=== PATIENT | female | born 1975 | race African-American/Black ===

== ENCOUNTER 2017-05-29 09:14 | Inpatient (IN) | payer OTHER ==
[2017-05-29 11:20] VITALS: BMI 31.7
--- NOTE | 2017-05-29 14:12 | HP ---
CIWA Score - CIWA Score Nausea/Vomitin Muscle Tremors: 4-Moderate,w/Arms Extend Anxiety: 3 Agitation: 0-Normal Activity Paroxysmal Sweats: No Perspiration Orientation: 0-Oriented Tacttile Disturbances: 0-None Auditory Disturbances: 0-None Visual Disturbances: 2-Mild Sensitivity Headache: 4-Moderately Severe CIWA-Ar Total Score: 16 Admission ROS BHS - HPI Chief Complaint: "It is time to make changes. I am tired of getting high." Pt. is here to Detox from Alcohol. Allergies/Adverse Reactions: Allergies Allergy/AdvReac Type Severity Reaction Status Date / Time No Known Allergies Allergy Verified 05/29/17 11:24 History of Present Illness: Pt. is a 41 YO female here to Detox from Alcohol. This is pt.'s first Detox admission at [facility]. Longest period of sobriety: approx. 1 month (2016). Exam Limitations: No Limitations - Ebola screening Have you traveled outside of the country in the last 21 days: No Have you had contact with anyone from an Ebola affected area: No Have you been sick,other than usual withdrawal symptoms: No Do you have a fever: No - Review of Systems Constitutional: Chills, Diaphoresis, Fever, Loss of Appetite, Malaise, Night Sweats, Changes in sleep, Unintentional Wgt. Loss (Lost approx. 15 lbs. over last 3 months.) EENT: reports: Blurred Vision, Tearing, Other (Upper Denture.) Respiratory: reports: Productive cough Cardiac: reports: Palpitations GI: reports: Nausea, Poor Appetite, Vomiting, Indigestion : reports: No Symptoms Reported Musculoskeletal: reports: Joint Pain, Joint Stiffness Integumentary: reports: Pruritus (Eczema on Bilateral Hands.) Neuro: reports: Headache, Tremors Endocrine: reports: No Symptoms Reported Hematology: reports: No Symptoms Reported Psychiatric: reports: Judgement Intact, Mood/Affect Appropiate, Orientated x3, Anxious, Depressed (No Previous Treatment.) Other Systems: Reviewed and Negative Patient History - Patient Medical History Hx Anemia: No Hx Asthma: Yes (Pt is on MDI for asthma.) Hx Chronic Obstructive Pulmonary Disease (COPD): No Hx Cancer: No Hx Cardiac Disorders: No Hx Congestive Heart Failure: No Hx Hypertension: No Hx Hypercholesterolemia: No Hx Pacemaker: No HX Cerebrovascular Accident: No Hx Seizures: No Hx Dementia: No Hx Diabetes: No Hx Gastrointestinal Disorders: No Hx Liver Disease: No Hx Genitourinary Disorders: No Hx Sexually Transmitted Disorders: No Hx Renal Disease (ESRD): No Hx Thyroid Disease: No Hx Human Immunodeficiency Virus (HIV): No (Last Tested: approx. 6 months ago: NEGATIVE.) Hx Hepatitis C: No (Last Tested: approx. 6 months ago: NEGATIVE.) Hx Depression: Yes (No previous treatment.) Hx Suicide Attempt: No (PATIENT DENIES CURRENT SI / HI.) Hx Bipolar Disorder: No Hx Schizophrenia: No Other Medical History: DENIES. - Patient Surgical History Past Surgical History: No Hx Neurologic Surgery: No Hx Cataract Extraction: No Hx Cardiac Surgery: No Hx Lung Surgery: No Hx Breast Surgery: No Hx Breast Biopsy: No Hx Abdominal Surgery: No Hx Appendectomy: No Hx Cholecystectomy: No Hx Genitourinary Surgery: No Hx Section: No Hx Orthopedic Surgery: No Hx Hysterectomy: No Anesthesia Reaction: No - PPD History Previous Implant?: Yes Documented Results: Negative w/o proof Implanted On Prior R Admission?: No PPD to be Administered?: Yes - Reproductive History Patient is a Female of Child Bearing Age (11 -55 yrs old): Yes Last Menstrual Period: 04/30/17 Patient : No - Smoking Cessation Smoking history: Current every day smoker Have you smoked in the past 12 months: Yes Aproximately how many cigarettes per day: 10 Cigars Per Day: 0 Hx Chewing Tobacco Use: No Initiated information on smoking cessation: Yes 'Breaking Loose' booklet given: 05/29/17 (GIVEN TO PATIENT.) - Substance & Tx. History Hx Alcohol Use: Yes Hx Substance Use: Yes Substance Use Type: Alcohol, Cocaine Hx Substance Use Treatment: No - Substances Abused Alcohol Route: Oral Frequency: Daily Amount used: 1 PINT VODKA Age of first use: 11 Date of Last Use: 05/28/17 Crack Route: Smoking Frequency: Daily Amount used: 4-5 BAGS Age of first use: 15 Date of Last Use: 05/28/17 Family Disease History - Family Disease History Family Disease History: Heart Disease: Grandparent (Emphysema, HTN.), Respiratory: Grandparent Admission Physical Exam BHS - Vital Signs Vital Signs: Vital Signs - 24 hr 05/29/17 11:18 Temperature 96.1 F L Pulse Rate 57 L Respiratory 20 Rate Blood Pressure 128/81 - Physical General Appearance: Yes: No Apparent Distress, Nourished, Appropriately Dressed , Tremorous, Anxious HEENTM: Yes: Hearing grossly Normal, Normocephalic, Normal Voice, GRECIA, Pharynx Normal Respiratory: Yes: Chest Non-Tender, Lungs Clear, No Respiratory Distress, No Accessory Muscle Use Neck: Yes: No masses,lesions,Nodules, Supple, Trachea in good position Breast: Yes: Breast Exam Deferred Cardiology: Yes: Regular Rhythm, Regular Rate, S1, S2 Abdominal: Yes: Normal Bowel Sounds, Non Tender, Soft, Protuberent Genitourinary: Yes: Within Normal Limits Back: Yes: Decreased Range of Motion Musculoskeletal: Yes: Gait Steady, Joint Stiffness Extremities: Yes: Non-Tender, Tremors Neurological: Yes: Fully Oriented, Alert, Normal Mood/Affect, Normal Response Integumentary: Yes: Normal Color, Dry, Warm, Other (Dry skin noted on bilateral hands.) Lymphatic: Yes: Within Normal Limits - Diagnostic (1) Alcohol dependence with uncomplicated withdrawal Current Visit: Yes Status: Acute (2) Cocaine dependence, uncomplicated Current Visit: Yes Status: Acute (3) Nicotine dependence Current Visit: Yes Status: Chronic Qualifiers: Nicotine product type: cigarettes Substance use status: uncomplicated Qualified Code(s): F17.210 - Nicotine dependence, cigarettes, uncomplicated; F17.210 - Nicotine dependence, cigarettes, uncomplicated (4) Eczema of both hands Current Visit: Yes Status: Chronic (5) Asthma Current Visit: Yes Status: Chronic Qualifiers: Asthma severity: mild Asthma persistence: intermittent Asthma complication type: uncomplicated Qualified Code(s): J45.20 - Mild intermittent asthma, uncomplicated; J45.20 - Mild intermittent asthma, uncomplicated; J45.20 - Mild intermittent asthma, uncomplicated (6) Depression (emotion) Current Visit: Yes Status: Chronic Qualifiers: Depression Type: unspecified Qualified Code(s): F32.9 - Major depressive disorder, single episode, unspecified; F32.9 - Major depressive disorder, single episode, unspecified; F32.9 - Major depressive disorder, single episode, unspecified Cleared for Admission S - Detox or Rehab [facility] Level of Care: Medically Managed Detox Regimen/Protocol: Librium S Breath Alcohol Content Breath Alcohol Content: 0 Urine Pregancy Test - Result Urine Test Results: Negative- NO Line Present Urine Drug Screen - Results Drug Screen Negative: No Urine Drug Screen Results: FLOWER-Cocaine
[2017-05-29] MEDS ORDERED: guaiFENesin/D-METHORPHAN HB 10 ML UNIT-DOSE CUPS PO PRN (14:42)
[2017-05-29] MEDS ORDERED: hydrOXYzine PAMOATE 50 MG CAPSULE (FP) PO PRN (14:42)
[2017-05-29] MEDS ORDERED: IBUPROFEN 400 MG TABLET (FP) PO PRN (14:42)
[2017-05-29] MEDS ORDERED: P-EPHED 60MG/TRIPROLIDI 2.5MG TABLET PO PRN (14:42)
[2017-05-29] MEDS ORDERED: MAGNESIUM CITRATE 300 ML BOTTLE PO PRN (14:42)
[2017-05-29] MEDS ORDERED: MAG HYDROX/AL HYDROX/SIMETH 30 ML UNIT-DOSE CUP PO PRN (14:42)
[2017-05-29] MEDS ORDERED: ACETAMINOPHEN 325 MG TABLET (FP) PO PRN (14:42)
[2017-05-29] MEDS ORDERED: MAGNESIUM HYDROX 2400MG/30ML ORAL SUSPENSION 30 ML CUP PO PRN (14:42)
[2017-05-29] MEDS ORDERED: chlordiazePOXIDE HCL 25 MG CAPSULE PO PRN (14:42)
[2017-05-29] MEDS ORDERED: NICOTINE POLACRILEX 2 MG GUM BUC PRN (14:42)
[2017-05-29] MEDS ORDERED: LOPERAMIDE HCL 2 MG CAPSULE PO PRN (14:42)
[2017-05-29] MEDS ORDERED: MENTHOL/PHENOL 1 EACH UD MM PRN (14:42)
[2017-05-29] MEDS ORDERED: chlordiazePOXIDE HCL 25 MG CAPSULE PO ONE (15:09)
[2017-05-29] MEDS: NICOTINE 21 MG/24 HOURS TOPICAL PATCH TD SCH (15:46)
[2017-05-29] MEDS: chlordiazePOXIDE HCL 25 MG CAPSULE PO SCH ×2 (16:55→22:14)
[2017-05-29 18:03] LABS: MCH 32.2 pg (25.7-33.7); MCHC 33.1 g/dl (32.0-36.0); MEAN CELL VOLUME 97.5 fl (80-96); PLATELET COUNT 206 K/MM3 (134-434); RDW 15.6 % (11.6-15.6); WHITE BLOOD COUNT 4.3 K/mm3 (4.0-10.0)
[2017-05-29 18:15] LABS: ALBUMIN 3.5 g/dl (3.4-5.0); ANION GAP 7 (8-16); BILIRUBIN,TOTAL 0.2 mg/dL (0.2-1.0); CALCIUM 8.6 mg/dL (8.5-10.1); CO2 29 mmol/L (21-32); CREATININE 0.9 mg/dL (0.55-1.02); GLUCOSE,RANDOM 80 mg/dL (74-106); SGOT/AST 28 U/L (15-37); SGPT/ALT 26 U/L (12-78); TOT PROT 7.2 g/dl (6.4-8.2)
[2017-05-29 18:16] LABS: ALK PHOS 44 U/L (45-117)
[2017-05-29 19:05] LABS: PLATELET COMMENT2 FEW LARGE PLTS; PLATELET ESTIMATE ADEQUATE (NORMAL)
[2017-05-29 20:30] LABS: URINE APPEARANCE CLEAR; URINE BILIRUBIN NEGATIVE (NEGATIVE); URINE BLOOD NEGATIVE (NEGATIVE); URINE COLOR YELLOW; URINE GLUCOSE (UA) NEGATIVE (NEGATIVE); URINE KETONE NEGATIVE (NEGATIVE); URINE NITRITE NEGATIVE (NEGATIVE); URINE PROTEIN NEGATIVE (NEGATIVE); URINE UROBILINOGEN NEGATIVE mg/dL (0.2-1.0)
[2017-05-29 21:42] LABS: URINE LEUK ESTERASE Negative (NEGATIVE)
[2017-05-29] MEDS: AMMONIUM LACTATE 12% LOTION 225 GM BOTTLE TP SCH (22:14)
[2017-05-29] MEDS: THIAMINE HCL 100 MG TABLET (FP) PO SCH (22:14)
[2017-05-30] MEDS: chlordiazePOXIDE HCL 25 MG CAPSULE PO SCH ×4 (05:46→22:21)
[2017-05-30] MEDS: PRENATAL VITAMINS W/ FOLIC ACID TABLET (FP) PO SCH (10:20)
[2017-05-30] MEDS: NICOTINE 21 MG/24 HOURS TOPICAL PATCH TD SCH (10:21)
[2017-05-30] MEDS: AMMONIUM LACTATE 12% LOTION 225 GM BOTTLE TP SCH ×2 (10:21→22:22)
[2017-05-30] MEDS ORDERED: PNEUMOCOCCAL 23 VACCINE 0.5 ML VIAL IM ONE (12:00)
[2017-05-30] MEDS ORDERED: FLU VACCINE QUAD 60 MCG/0.5 ML (MDV 17-18) IM ONE (12:00)
[2017-05-30] MEDS ORDERED: PNEUMOC 13-VAL CONJ-DIP CRM/PF 0.5 ML DISP.SYRIN IM ONE (12:00)
--- NOTE | 2017-05-30 12:54 | EKG ---
Test Reason : Blood Pressure : / mmHG Vent. Rate : 057 BPM Atrial Rate : 057 BPM P-R Int : 142 ms QRS Dur : 084 ms QT Int : 422 ms P-R-T Axes : 058 053 048 degrees QTc Int : 410 ms SINUS BRADYCARDIA WITH SINUS ARRHYTHMIA NO PREVIOUS ECGS AVAILABLE Confirmed by GRICEL MISHRA MD ([id number]) on 05/30/2017 12:54:04 PM Referred By: Confirmed By:GRICEL MISHRA MD
--- NOTE | 2017-05-30 15:42 | PN ---
S CIWA - CIWA Score Nausea/Vomitin Muscle Tremors: 3 Anxiety: 3 Agitation: 2 Paroxysmal Sweats: 1-Minimal Palms Moist Orientation: 0-Oriented Tacttile Disturbances: 1-Very Mild Itch/Numbness Auditory Disturbances: 1-Very Mild Visual Disturbances: 0-None Headache: 2-Mild CIWA-Ar Total Score: 16 BHS Progress Note (SOAP) Subjective: alert,irritable,anxious,interrupted sleep,tremor Objective: 05/30/17 15:39 Vital Signs Temperature 98.1 F 05/30/17 13:50 Pulse Rate 88 05/30/17 13:50 Respiratory Rate 20 05/30/17 13:50 Blood Pressure 135/84 05/30/17 13:50 O2 Sat by Pulse Oximetry (%) ekg sinus bradycardia with sinus arrhythmia no ches pain,no sob,no dizziness Laboratory Last Values WBC 4.3 K/mm3 (4.0-10.0) 05/29/17 15:00 RBC 3.63 M/mm3 (3.60-5.2) 05/29/17 15:00 Hgb 11.7 GM/dL (10.7-15.3) 05/29/17 15:00 Hct 35.4 % (32.4-45.2) 05/29/17 15:00 MCV 97.5 fl (80-96) H 05/29/17 15:00 MCH 32.2 pg (25.7-33.7) 05/29/17 15:00 MCHC 33.1 g/dl (32.0-36.0) 05/29/17 15:00 RDW 15.6 % (11.6-15.6) 05/29/17 15:00 Plt Count 206 K/MM3 (134-434) 05/29/17 15:00 MPV 11.0 fl (7.5-11.1) 05/29/17 15:00 Differential Comment Slide scanned 05/29/17 15:00 Platelet Estimate Adequate (NORMAL) 05/29/17 15:00 Platelet Comment Few giant plts 05/29/17 15:00 Platelet Comment Few large plts 05/29/17 15:00 Sodium 142 mmol/L (136-145) 05/29/17 15:00 Potassium 4.2 mmol/L (3.5-5.1) 05/29/17 15:00 Chloride 106 mmol/L (98-107) 05/29/17 15:00 Carbon Dioxide 29 mmol/L (21-32) 05/29/17 15:00 Anion Gap 7 (8-16) L 05/29/17 15:00 BUN 13 mg/dL (7-18) 05/29/17 15:00 Creatinine 0.9 mg/dL (0.55-1.02) 05/29/17 15:00 Creat Clearance w eGFR > 60 (>60) 05/29/17 15:00 Random Glucose 80 mg/dL (74-106) 05/29/17 15:00 Calcium 8.6 mg/dL (8.5-10.1) 05/29/17 15:00 Total Bilirubin 0.2 mg/dL (0.2-1.0) 05/29/17 15:00 AST 28 U/L (15-37) 05/29/17 15:00 ALT 26 U/L (12-78) 05/29/17 15:00 Alkaline Phosphatase 44 U/L (45-117) L 05/29/17 15:00 Total Protein 7.2 g/dl (6.4-8.2) 05/29/17 15:00 Albumin 3.5 g/dl (3.4-5.0) 05/29/17 15:00 Urine Color Yellow 05/29/17 19:00 Urine Appearance Clear 05/29/17 19:00 Urine pH 5.0 (5.0-8.0) 05/29/17 19:00 Ur Specific [place] >= 1.030 (1.005-1.025) H 05/29/17 19:00 Urine Protein Negative (NEGATIVE) 05/29/17 19:00 Urine Glucose (UA) Negative (NEGATIVE) 05/29/17 19:00 Urine Ketones Negative (NEGATIVE) 05/29/17 19:00 Urine Blood Negative (NEGATIVE) 05/29/17 19:00 Urine Nitrite Negative (NEGATIVE) 05/29/17 19:00 Urine Bilirubin Negative (NEGATIVE) 05/29/17 19:00 Urine Urobilinogen Negative mg/dL (0.2-1.0) 05/29/17 19:00 Ur Leukocyte Esterase Negative (NEGATIVE) 05/29/17 19:00 RPR Titer Nonreactive (NONREACTIVE) 05/29/17 15:00 05/30/17 15:41 Assessment: 05/30/17 15:41 withdrawal symptom Plan: continue detox
--- NOTE | 2017-05-30 17:26 | CONSULT ---
[facility] Psychiatric Consult - Data Date of interview: 05/30/17 Admission source: [facility] Identifying data: First admission to [facility] for this 41 y/o AA female seeking detox treatment on for alcohol and cocaine dependence.Patient is single,mother of one,homeless,unemployed and supported on Public Assistance. Substance Abuse History: Discussed with patient in this session.Confirmed. Smoking Cessation. Smoking history: Current every day smoker. Have you smoked in the past 12 months: Yes. Aproximately how many cigarettes per day: 10. Cigars Per Day: 0. Hx Chewing Tobacco Use: No. Initiated information on smoking cessation: Yes. 'Breaking Loose' booklet given: 05/29/17 (GIVEN TO PATIENT.). - Substance & Tx. History. Hx Alcohol Use: Yes. Hx Substance Use: Yes. Substance Use Type: Alcohol, Cocaine. Hx Substance Use Treatment: No. - Substances Abused. Alcohol. Route: Oral. Frequency: Daily. Amount used: 1 PINT VODKA. Age of first use: 11. Date of Last Use: 05/28/17. Crack. Route: Smoking. Frequency: Daily. Amount used: 4-5 BAGS. Age of first use: 15. Date of Last Use: 05/28/17 Medical History: No reported medical problems. Psychiatric History: Patient denies. Physical/Sexual Abuse/Trauma History: No history. Additional Comment: Urine Drug Screen Results: FLOWER-Cocaine.Noted. Mental Status Exam - Mental Status Exam Alert and Oriented to: Time, Place, Person Cognitive Function: Good Patient Appearance: Well Groomed Mood: Withdrawn, Hopeful, Euthymic Affect: Appropriate, Normal Range Patient Behavior: Fatigued, Cooperative Speech Pattern: Clear Voice Loudness: Normal Thought Process: Intact, Goal Oriented Thought Disorder: Not Present Hallucinations: Denies Suicidal Ideation: Denies Homicidal Ideation: Denies Insight/Judgement: Poor Sleep: Well Appetite: Good Muscle strength/Tone: Normal Gait/Station: Normal Psychiatric Findings - Problem List ([place] 1, 2,3) (1) Alcohol dependence with uncomplicated withdrawal Current Visit: Yes Status: Acute (2) Cocaine dependence, uncomplicated Current Visit: Yes Status: Acute (3) Nicotine dependence Current Visit: Yes Status: Chronic Qualifiers: Nicotine product type: cigarettes Substance use status: uncomplicated Qualified Code(s): F17.210 - Nicotine dependence, cigarettes, uncomplicated; F17.210 - Nicotine dependence, cigarettes, uncomplicated (4) Eczema of both hands Current Visit: Yes Status: Chronic (5) Asthma Current Visit: Yes Status: Chronic Qualifiers: Asthma severity: mild Asthma persistence: intermittent Asthma complication type: uncomplicated Qualified Code(s): J45.20 - Mild intermittent asthma, uncomplicated; J45.20 - Mild intermittent asthma, uncomplicated; J45.20 - Mild intermittent asthma, uncomplicated - Initial Treatment Plan Initial Treatment Plan: Psychoeducation.Detoxification.Observation.
[2017-05-30] MEDS: THIAMINE HCL 100 MG TABLET (FP) PO SCH (22:21)
[2017-05-31] MEDS: chlordiazePOXIDE HCL 25 MG CAPSULE PO SCH ×2 (05:21→11:13)
[2017-05-31] MEDS: PRENATAL VITAMINS W/ FOLIC ACID TABLET (FP) PO SCH (11:00)
[2017-05-31] MEDS: AMMONIUM LACTATE 12% LOTION 225 GM BOTTLE TP SCH ×2 (11:00→22:34)
[2017-05-31] MEDS: NICOTINE 21 MG/24 HOURS TOPICAL PATCH TD SCH (11:00)
[2017-05-31] MEDS: ALBUTEROL SO4 18 GM HFA INHALER IH PRN ×2 (11:33→22:36)
--- NOTE | 2017-05-31 14:56 | PN ---
S CIWA - CIWA Score Nausea/Vomitin Muscle Tremors: 3 Anxiety: 2 Agitation: 2 Paroxysmal Sweats: 1-Minimal Palms Moist Orientation: 0-Oriented Tacttile Disturbances: 1-Very Mild Itch/Numbness Auditory Disturbances: 1-Very Mild Visual Disturbances: 0-None Headache: 2-Mild CIWA-Ar Total Score: 15 BHS Progress Note (SOAP) Subjective: ALERT,IRRITABLE,ANXIOUS,INTERRUPTED SLEEP,TREMOR Objective: 05/31/17 14:55 Vital Signs Temperature 99.0 F 05/31/17 11:10 Pulse Rate 98 H 05/31/17 11:10 Respiratory Rate 18 05/31/17 11:10 Blood Pressure 131/86 05/31/17 11:10 O2 Sat by Pulse Oximetry (%) Laboratory Last Values WBC 4.3 K/mm3 (4.0-10.0) 05/29/17 15:00 RBC 3.63 M/mm3 (3.60-5.2) 05/29/17 15:00 Hgb 11.7 GM/dL (10.7-15.3) 05/29/17 15:00 Hct 35.4 % (32.4-45.2) 05/29/17 15:00 MCV 97.5 fl (80-96) H 05/29/17 15:00 MCH 32.2 pg (25.7-33.7) 05/29/17 15:00 MCHC 33.1 g/dl (32.0-36.0) 05/29/17 15:00 RDW 15.6 % (11.6-15.6) 05/29/17 15:00 Plt Count 206 K/MM3 (134-434) 05/29/17 15:00 MPV 11.0 fl (7.5-11.1) 05/29/17 15:00 Differential Comment Slide scanned 05/29/17 15:00 Platelet Estimate Adequate (NORMAL) 05/29/17 15:00 Platelet Comment Few giant plts 05/29/17 15:00 Platelet Comment Few large plts 05/29/17 15:00 Sodium 142 mmol/L (136-145) 05/29/17 15:00 Potassium 4.2 mmol/L (3.5-5.1) 05/29/17 15:00 Chloride 106 mmol/L (98-107) 05/29/17 15:00 Carbon Dioxide 29 mmol/L (21-32) 05/29/17 15:00 Anion Gap 7 (8-16) L 05/29/17 15:00 BUN 13 mg/dL (7-18) 05/29/17 15:00 Creatinine 0.9 mg/dL (0.55-1.02) 05/29/17 15:00 Creat Clearance w eGFR > 60 (>60) 05/29/17 15:00 Random Glucose 80 mg/dL (74-106) 05/29/17 15:00 Calcium 8.6 mg/dL (8.5-10.1) 05/29/17 15:00 Total Bilirubin 0.2 mg/dL (0.2-1.0) 05/29/17 15:00 AST 28 U/L (15-37) 05/29/17 15:00 ALT 26 U/L (12-78) 05/29/17 15:00 Alkaline Phosphatase 44 U/L (45-117) L 05/29/17 15:00 Total Protein 7.2 g/dl (6.4-8.2) 05/29/17 15:00 Albumin 3.5 g/dl (3.4-5.0) 05/29/17 15:00 Urine Color Yellow 05/29/17 19:00 Urine Appearance Clear 05/29/17 19:00 Urine pH 5.0 (5.0-8.0) 05/29/17 19:00 Ur Specific [place] >= 1.030 (1.005-1.025) H 05/29/17 19:00 Urine Protein Negative (NEGATIVE) 05/29/17 19:00 Urine Glucose (UA) Negative (NEGATIVE) 05/29/17 19:00 Urine Ketones Negative (NEGATIVE) 05/29/17 19:00 Urine Blood Negative (NEGATIVE) 05/29/17 19:00 Urine Nitrite Negative (NEGATIVE) 05/29/17 19:00 Urine Bilirubin Negative (NEGATIVE) 05/29/17 19:00 Urine Urobilinogen Negative mg/dL (0.2-1.0) 05/29/17 19:00 Ur Leukocyte Esterase Negative (NEGATIVE) 05/29/17 19:00 RPR Titer Nonreactive (NONREACTIVE) 05/29/17 15:00 Assessment: 05/31/17 14:55 WITHDRAWAL SYMPTOM Plan: CONTINUE DETOX
[2017-05-31] MEDS: chlordiazePOXIDE 5 MG CAPSULE PO SCH ×2 (17:33→22:33)
[2017-05-31] MEDS: THIAMINE HCL 100 MG TABLET (FP) PO SCH (22:34)
[2017-05-31] MEDS: diphenhydrAMINE HCL 50 MG CAPSULE PO PRN (22:34)
[2017-06-01] MEDS: chlordiazePOXIDE 5 MG CAPSULE PO SCH ×2 (06:00→10:29)
[2017-06-01] MEDS: PRENATAL VITAMINS W/ FOLIC ACID TABLET (FP) PO SCH (10:29)
[2017-06-01] MEDS: NICOTINE 21 MG/24 HOURS TOPICAL PATCH TD SCH (10:29)
[2017-06-01] MEDS: ALBUTEROL SO4 18 GM HFA INHALER IH PRN (10:30)
[2017-06-01] MEDS: AMMONIUM LACTATE 12% LOTION 225 GM BOTTLE TP SCH ×2 (10:30→22:14)
--- NOTE | 2017-06-01 11:24 | PN ---
BHS Progress Note (SOAP) Subjective: sweats interrupted sleep Objective: 06/01/17 11:24 Vital Signs Temperature 98.2 F 06/01/17 11:20 Pulse Rate 88 06/01/17 11:20 Respiratory Rate 18 06/01/17 11:20 Blood Pressure 118/67 06/01/17 11:20 O2 Sat by Pulse Oximetry (%) aaox3 ambulating no acute distress Assessment: 06/01/17 11:24 withdrawal sx Plan: continue detox d/c in am
[2017-06-01] MEDS: chlordiazePOXIDE HCL 10 MG CAPSULE PO SCH ×2 (17:28→22:14)
[2017-06-01] MEDS: THIAMINE HCL 100 MG TABLET (FP) PO SCH (22:14)
[2017-06-01] MEDS: diphenhydrAMINE HCL 50 MG CAPSULE PO PRN (22:14)
[2017-06-02] MEDS: chlordiazePOXIDE HCL 10 MG CAPSULE PO SCH ×2 (06:11→10:49)
--- NOTE | 2017-06-02 09:02 | DS ---
[facility] Detox Discharge Summary Admission Date: 05/29/17 Discharge Date: 06/02/17 - History Present History: Alcohol Dependence, Cocaine Dependence - Physical Exam Results Vital Signs: Vital Signs Temperature 97.1 F L 06/02/17 06:52 Pulse Rate 80 06/02/17 06:52 Respiratory Rate 16 06/02/17 06:52 Blood Pressure 112/74 06/02/17 06:52 O2 Sat by Pulse Oximetry (%) - Treatment Hospital Course: Detox Protocol Followed, Detoxed Safely, Responded well, Discharged Condition Good, Rehab Referral Accepted - Medication Discharge Medications: Ambulatory Orders Albuterol Sulfate Inhaler - [Ventolin Hfa Inhaler -] 2 inh PO Q4H PRN 05/29/17 - AMA Did Patient Leave Against Medical Advice: No
[2017-06-02] MEDS: PRENATAL VITAMINS W/ FOLIC ACID TABLET (FP) PO SCH (09:16)
[2017-06-02] MEDS: AMMONIUM LACTATE 12% LOTION 225 GM BOTTLE TP SCH (09:17)
[2017-06-02] MEDS: NICOTINE 21 MG/24 HOURS TOPICAL PATCH TD SCH (09:17)
[2017-06-02 10:37] VITALS: BP 117/77; PULSE 88; TEMP 97.9
== END 2017-06-02 10:10 | disposition home or self-care (01) | DRG 774 ==
LOC: YASAS 09:14 → Y6N 13:05
PROVIDERS: ADMIT Internal Medicine; ATTEND Internal Medicine
PROC: HZ2ZZZZ Detoxification Services for Substance Abuse Treatment (ICD-10-PCS; principal; 2017-05-29)
DX: F10.230 Alcohol dependence with withdrawal, uncomplicated (principal); F14.20 Cocaine dependence, uncomplicated; F17.210 Nicotine dependence, cigarettes, uncomplicated; F32.9 Major depressive disorder, single episode, unspecified; J45.20 Mild intermittent asthma, uncomplicated; L30.9 Dermatitis, unspecified
CPT/HCPCS: 36415; 80053; 81003; 85027; 86593; 90688; 90732; 93005; 93010; G0008; G0009

== ENCOUNTER 2018-04-05 19:35 | Inpatient (IN) | payer OTHER ==
[2018-04-05 22:45] VITALS: BMI 29.2
--- NOTE | 2018-04-05 23:28 | HP ---
CIWA Score - CIWA Score Nausea/Vomitin-No Nausea/No Vomiting Muscle Tremors: 4-Moderate,w/Arms Extend Anxiety: 4-Mod. Anxious/Guarded Agitation: 4-Moderately Restless Paroxysmal Sweats: No Perspiration Orientation: 0-Oriented Tacttile Disturbances: 3-Moderate Itch/Numb/Burn Auditory Disturbances: 0-None Visual Disturbances: 0-None Headache: 2-Mild CIWA-Ar Total Score: 17 Admission ROS S - HPI Chief Complaint: C/O WITHDRAWAL SX'S. SEEKING DETOX FROM ALCOHOL Allergies/Adverse Reactions: Allergies Allergy/AdvReac Type Severity Reaction Status Date / Time No Known Allergies Allergy Verified 07/27/17 10:45 History of Present Illness: 42 Y.O. FEMALE WITH ALCOHOL AND COCAINE DEPENDENCE HERE FOR DETOX. CLIENT IS KNOWN TO THIS PROGRAM. LAST HERE 07/2017.SELF REFERRED. REPORTS LONGEST CLEAN TIME 6 MONTHS.DENIES HX/O SEIZURES, AVH, PAST/PRESENT SI/HI Exam Limitations: No Limitations - Ebola screening Have you traveled outside of the country in the last 21 days: No Have you had contact with anyone from an Ebola affected area: No Have you been sick,other than usual withdrawal symptoms: No Do you have a fever: No - Review of Systems Constitutional: Chills, Loss of Appetite, Malaise, Night Sweats, Unintentional Wgt. Loss EENT: reports: Dental Problems (MISSING TEETH), Other (GLASSES) Respiratory: reports: Shortness of Breath (HX/O ASTHMA) Cardiac: reports: No Symptoms Reported GI: reports: Poor Appetite : reports: No Symptoms Reported Musculoskeletal: reports: No Symptoms Reported Integumentary: reports: Rash (ECZEMA) Neuro: reports: No Symptoms reported Endocrine: reports: No Symptoms Reported Hematology: reports: No Symptoms Reported Psychiatric: reports: Anxious, Depressed Other Systems: Reviewed and Negative Patient History - Patient Medical History Hx Anemia: No Hx Asthma: Yes Hx Chronic Obstructive Pulmonary Disease (COPD): No Hx Cancer: No Hx Cardiac Disorders: No Hx Congestive Heart Failure: No Hx Hypertension: No Hx Hypercholesterolemia: No Hx Pacemaker: No HX Cerebrovascular Accident: No Hx Seizures: No Hx Dementia: No Hx Diabetes: No Hx Gastrointestinal Disorders: Yes (acid reflux) Hx Liver Disease: No Hx Genitourinary Disorders: No Hx Sexually Transmitted Disorders: No Hx Renal Disease (ESRD): No Hx Thyroid Disease: No Hx Human Immunodeficiency Virus (HIV): No Hx Hepatitis C: No Hx Depression: No Hx Suicide Attempt: No Hx Bipolar Disorder: No Hx Schizophrenia: No Other Medical History: FEELS DEPRESSED - Patient Surgical History Past Surgical History: No Hx Neurologic Surgery: No Hx Cataract Extraction: No Hx Cardiac Surgery: No Hx Lung Surgery: No Hx Breast Surgery: No Hx Breast Biopsy: No Hx Abdominal Surgery: No Hx Appendectomy: No Hx Cholecystectomy: No Hx Genitourinary Surgery: No Hx Section: No Hx Orthopedic Surgery: No Hx Hysterectomy: No Anesthesia Reaction: No - PPD History Previous Implant?: Yes Documented Results: Negative w/proof Implanted On Prior [facility] Admission?: Yes Date: 05/31/17 Results: 0 mm PPD to be Administered?: No - Reproductive History Patient is a Female of Child Bearing Age (11 -55 yrs old): Yes Last Menstrual Period: 04/01/16 LMP comment: REG Patient : No ([facility] [place]) - Smoking Cessation Smoking history: Current every day smoker Have you smoked in the past 12 months: Yes Aproximately how many cigarettes per day: 5 Cigars Per Day: 0 Hx Chewing Tobacco Use: No Initiated information on smoking cessation: Yes 'Breaking Loose' booklet given: 04/05/18 - Substance & Tx. History Hx Alcohol Use: Yes Hx Substance Use: Yes Substance Use Type: Alcohol, Cocaine Hx Substance Use Treatment: Yes ([facility]) - Substances Abused LIQUOR Route: Oral Frequency: Daily Amount used: 1 PINT Age of first use: 12 Date of Last Use: 04/05/18 Family Disease History - Family Disease History Family Disease History: Heart Disease: Grandparent (Emphysema, HTN.), Respiratory: Grandparent Admission Physical Exam [facility] - Vital Signs Vital Signs: Vital Signs - 24 hr 04/05/18 22:41 Temperature 97.3 F L Pulse Rate 65 Respiratory 18 Rate Blood Pressure 147/103 - Physical General Appearance: Yes: Appropriately Dressed, Mild Distress, Tremorous (FELT) , Irritable, Anxious, Other (MALODUROUS) HEENTM: Yes: EOMI, Normocephalic, Normal Voice, GRECIA, Pharynx Normal, Other ( POOR DENTITION) Respiratory: Yes: Chest Non-Tender, Lungs Clear, Normal Breath Sounds, No Respiratory Distress, No Accessory Muscle Use Neck: Yes: No masses,lesions,Nodules, Supple, Trachea in good position Breast: Yes: Breast Exam Deferred Cardiology: Yes: Regular Rhythm, Regular Rate, S1, S2 Abdominal: Yes: Normal Bowel Sounds, Non Tender, Soft Genitourinary: Yes: Other (NO C/O) Back: Yes: Normal Inspection Musculoskeletal: Yes: full range of Motion, Gait Steady Extremities: Yes: Normal Capillary Refill, Normal Range of Motion, Non-Tender, Tremors (FELT), Pedal Edema (BLE) Neurological: Yes: Fully Oriented, Alert, Motor Strength 5/5, Depressed Affect Integumentary: Yes: Dry, Warm, Rash (ECZEMA), Pitting Edema Lymphatic: Yes: Within Normal Limits - Diagnostic (1) GERD (gastroesophageal reflux disease) Current Visit: Yes Status: Chronic Qualifiers: Esophagitis presence: without esophagitis Qualified Code(s): K21.9 - Gastro -esophageal reflux disease without esophagitis (2) Alcohol dependence with uncomplicated withdrawal Current Visit: Yes Status: Acute (3) Asthma Current Visit: Yes Status: Chronic Qualifiers: Asthma severity: mild Asthma persistence: unspecified (4) Cocaine dependence, uncomplicated Current Visit: Yes Status: Chronic (5) Eczema of both hands Current Visit: Yes Status: Chronic (6) Nicotine dependence Current Visit: Yes Status: Chronic Qualifiers: Nicotine product type: cigarettes Substance use status: uncomplicated Qualified Code(s): F17.210 - Nicotine dependence, cigarettes, uncomplicated (7) Drug-induced mood disorder Current Visit: Yes Status: Suspected Cleared for Admission [facility] - Detox or Rehab [facility] Level of Care: Medically Managed Detox Regimen/Protocol: Librium Claeared for Rehab Admission: No S Breath Alcohol Content Breath Alcohol Content: 0 Urine Pregancy Test - Result Urine Test Results: Negative- NO Line Present Urine Drug Screen - Results Drug Screen Negative: No Urine Drug Screen Results: FLOWER-Cocaine
[2018-04-05] MEDS ORDERED: chlordiazePOXIDE HCL 25 MG CAPSULE PO PRN (23:34)
[2018-04-05] MEDS ORDERED: NICOTINE POLACRILEX 2 MG GUM BUC PRN (23:34)
[2018-04-05] MEDS ORDERED: P-EPHED 60MG/TRIPROLIDI 2.5MG TABLET PO PRN (23:34)
[2018-04-05] MEDS ORDERED: MENTHOL/PHENOL 1 EACH UD MM PRN (23:34)
[2018-04-05] MEDS ORDERED: MAGNESIUM CITRATE 300 ML BOTTLE PO PRN (23:34)
[2018-04-05] MEDS ORDERED: hydrOXYzine PAMOATE 50 MG CAPSULE (FP) PO PRN (23:34)
[2018-04-05] MEDS ORDERED: guaiFENesin/D-METHORPHAN HB 10 ML UNIT-DOSE CUPS PO PRN (23:34)
[2018-04-05] MEDS ORDERED: MAGNESIUM HYDROX 2400MG/30ML ORAL SUSPENSION 30 ML CUP PO PRN (23:34)
[2018-04-05] MEDS ORDERED: MAG HYDROX/AL HYDROX/SIMETH 30 ML UNIT-DOSE CUP PO PRN (23:34)
[2018-04-05] MEDS ORDERED: LOPERAMIDE HCL 2 MG CAPSULE PO PRN (23:34)
[2018-04-05] MEDS ORDERED: ALBUTEROL SO4 2.5/IPRATROPIUM 0.5 INH SOL 3 ML VIAL.NEB. NEB PRN (23:36)
[2018-04-05] MEDS ORDERED: ALBUTEROL SO4 8 GM HFA INHALER IH PRN (23:36)
[2018-04-06] MEDS: chlordiazePOXIDE HCL 25 MG CAPSULE PO SCH ×5 (06:02→22:16)
[2018-04-06 10:26] LABS: HEMATOCRIT 32.4 % (32.4-45.2); MCH 33.4 pg (25.7-33.7); MCHC 33.9 g/dl (32.0-36.0); MEAN CELL VOLUME 98.5 fl (80-96); MEAN PLT VOLUME 10.1 fl (7.5-11.1); PLATELET COUNT 216 K/MM3 (134-434); RBC 3.29 M/mm3 (3.60-5.2); RDW 15.7 % (11.6-15.6); WHITE BLOOD COUNT 5.2 K/mm3 (4.0-10.0)
[2018-04-06 10:31] LABS: URINE APPEARANCE CLEAR; URINE BILIRUBIN NEGATIVE (<2.0 mg/dL); URINE COLOR LTYELLOW; URINE GLUCOSE (UA) NEGATIVE (NEGATIVE); URINE KETONE NEGATIVE (NEGATIVE); URINE LEUK ESTERASE NEGATIVE (NEGATIVE); URINE NITRITE NEGATIVE (NEGATIVE); URINE PROTEIN NEGATIVE (NEGATIVE); URINE UROBILINOGEN NEGATIVE mg/dL (0.2-1.0)
[2018-04-06 10:47] LABS: CHLORIDE 109 mmol/L (98-107); POTASSIUM 4.2 mmol/L (3.5-5.1); SODIUM 145 mmol/L (136-145)
[2018-04-06 10:51] LABS: EPI CELLS RARE /HPF (FEW); URINE MUCUS RARE
[2018-04-06 11:00] LABS: ALBUMIN 3.1 g/dl (3.4-5.0); ALK PHOS 40 U/L (45-117); ANION GAP 8 (8-16); BILIRUBIN,TOTAL 0.2 mg/dL (0.2-1.0); BLOOD UREA NITROGEN 16 mg/dL (7-18); CO2 28 mmol/L (21-32); GLUCOSE,RANDOM 100 mg/dL (74-106); SGOT/AST 29 U/L (15-37); SGPT/ALT 31 U/L (12-78); TOT PROT 6.1 g/dl (6.4-8.2)
[2018-04-06] MEDS: PRENATAL VITAMINS W/ FOLIC ACID TABLET (FP) PO SCH (11:02)
[2018-04-06] MEDS: NICOTINE 14 MG/24 HOURS TOPICAL PATCH TD SCH (11:04)
--- NOTE | 2018-04-06 11:40 | CONSULT ---
[facility] Psychiatric Consult - Data Date of interview: 04/06/18 Admission source: [facility] Identifying data: Patient is a 42 year old single female, mother of one, unemployed (not receiving financial assistance) and currently homeless. This is one of multiple admissions for patient. Pt. admitted to for alcohol and cocaine dependence. Substance Abuse History: Smoking Cessation. Smoking history: Current every day smoker. Have you smoked in the past 12 months: Yes. Aproximately how many cigarettes per day: 5. Cigars Per Day: 0. Hx Chewing Tobacco Use: No. Initiated information on smoking cessation: Yes. 'Breaking Loose' booklet given : 04/05/18. - Substance & Tx. History. Hx Alcohol Use: Yes. Hx Substance Use : Yes. Substance Use Type: Alcohol, Cocaine. Hx Substance Use Treatment: Yes ( [facility]). - Substances Abused. LIQUOR. Route: Oral. Frequency: Daily. Amount used: 1 PINT. Age of first use: 12. Date of Last Use: 04/05/18 Medical History: Asthma, acid reflux Psychiatric History: Patient denies h/o psychiatric hospitalization, outpatient care, and suicide attempt. Pt. states that she has a pending appointment to see a psychiatrist for housing. Physical/Sexual Abuse/Trauma History: denies. Mental Status Exam - Mental Status Exam Alert and Oriented to: Time, Place, Person Cognitive Function: Good Patient Appearance: Well Groomed Mood: Euthymic Affect: Appropriate Patient Behavior: Appropriate, Cooperative Speech Pattern: Clear, Appropriate Voice Loudness: Normal Thought Process: Intact, Goal Oriented Thought Disorder: Not Present Hallucinations: Denies Suicidal Ideation: Denies Homicidal Ideation: Denies Insight/Judgement: Poor Sleep: Fair Appetite: Fair Muscle strength/Tone: Normal Gait/Station: Normal Psychiatric Findings - Problem List ([place] 1, 2,3) (1) Alcohol dependence with uncomplicated withdrawal Current Visit: Yes Status: Acute (2) Cocaine dependence, uncomplicated Current Visit: Yes Status: Chronic (3) Nicotine dependence Current Visit: Yes Status: Chronic Qualifiers: Nicotine product type: cigarettes Substance use status: uncomplicated Qualified Code(s): F17.210 - Nicotine dependence, cigarettes, uncomplicated - Initial Treatment Plan Initial Treatment Plan: Psychoeducation provided. Detoxification in progress. Observation.
--- NOTE | 2018-04-06 13:16 | EKG ---
Test Reason : Blood Pressure : / mmHG Vent. Rate : 053 BPM Atrial Rate : 053 BPM P-R Int : 148 ms QRS Dur : 082 ms QT Int : 410 ms P-R-T Axes : 052 051 043 degrees QTc Int : 384 ms SINUS BRADYCARDIA OTHERWISE NORMAL ECG WHEN COMPARED WITH ECG OF 27-JUL-2017 14:36, CRITERIA FOR SEPTAL INFARCT ARE NO LONGER PRESENT T WAVE INVERSION NO LONGER EVIDENT IN ANTERIOR LEADS QT HAS SHORTENED Confirmed by Daniel Garcia MD ([id number]) on 04/06/2018 1:15:48 PM Referred By: Santana Calderon Confirmed By:Daniel Garcia MD
[2018-04-06] MEDS: IBUPROFEN 400 MG TABLET (FP) PO PRN ×2 (15:10→22:19)
--- NOTE | 2018-04-06 15:54 | PN ---
S CIWA - CIWA Score Nausea/Vomitin Muscle Tremors: 3 Anxiety: 3 Agitation: 2 Paroxysmal Sweats: 1-Minimal Palms Moist Orientation: 0-Oriented Tacttile Disturbances: 1-Very Mild Itch/Numbness Auditory Disturbances: 1-Very Mild Visual Disturbances: 0-None Headache: 2-Mild CIWA-Ar Total Score: 16 S Progress Note (SOAP) Subjective: alert,irritable,anxious,interrupted sleep,tremor Objective: 04/06/18 15:52 Vital Signs Temperature 98.4 F 04/06/18 14:39 Pulse Rate 88 04/06/18 14:39 Respiratory Rate 20 04/06/18 14:39 Blood Pressure 144/85 04/06/18 14:39 O2 Sat by Pulse Oximetry (%) ekg sinus bradycardia 53/minqt/cfe454/384 no chest pain,no sob,no dizziness Laboratory Last Values WBC 5.2 K/mm3 (4.0-10.0) 04/06/18 07:30 RBC 3.29 M/mm3 (3.60-5.2) L 04/06/18 07:30 Hgb 11.0 GM/dL (10.7-15.3) 04/06/18 07:30 Hct 32.4 % (32.4-45.2) D 04/06/18 07:30 MCV 98.5 fl (80-96) H 04/06/18 07:30 MCH 33.4 pg (25.7-33.7) 04/06/18 07:30 MCHC 33.9 g/dl (32.0-36.0) 04/06/18 07:30 RDW 15.7 % (11.6-15.6) H 04/06/18 07:30 Plt Count 216 K/MM3 (134-434) 04/06/18 07:30 MPV 10.1 fl (7.5-11.1) 04/06/18 07:30 Sodium 145 mmol/L (136-145) 04/06/18 07:30 Potassium 4.2 mmol/L (3.5-5.1) 04/06/18 07:30 Chloride 109 mmol/L (98-107) H 04/06/18 07:30 Carbon Dioxide 28 mmol/L (21-32) 04/06/18 07:30 Anion Gap 8 (8-16) 04/06/18 07:30 BUN 16 mg/dL (7-18) 04/06/18 07:30 Creatinine 1.0 mg/dL (0.55-1.02) 04/06/18 07:30 Creat Clearance w eGFR > 60 (>60) 04/06/18 07:30 Random Glucose 100 mg/dL (74-106) 04/06/18 07:30 Calcium 9.0 mg/dL (8.5-10.1) 04/06/18 07:30 Total Bilirubin 0.2 mg/dL (0.2-1.0) 04/06/18 07:30 AST 29 U/L (15-37) 04/06/18 07:30 ALT 31 U/L (12-78) 04/06/18 07:30 Alkaline Phosphatase 40 U/L (45-117) L 04/06/18 07:30 Total Protein 6.1 g/dl (6.4-8.2) L 04/06/18 07:30 Albumin 3.1 g/dl (3.4-5.0) L 04/06/18 07:30 Urine Color Ltyellow 04/06/18 08:25 Urine Appearance Clear 04/06/18 08:25 Urine pH 5.0 (5.0-8.0) 04/06/18 08:25 Ur Specific [place] 1.019 (1.001-1.035) 04/06/18 08:25 Urine Protein Negative (NEGATIVE) 04/06/18 08:25 Urine Glucose (UA) Negative (NEGATIVE) 04/06/18 08:25 Urine Ketones Negative (NEGATIVE) 04/06/18 08:25 Urine Blood 1+ (NEGATIVE) H 04/06/18 08:25 Urine Nitrite Negative (NEGATIVE) 04/06/18 08:25 Urine Bilirubin Negative (<2.0 mg/dL) 04/06/18 08:25 Urine Urobilinogen Negative mg/dL (0.2-1.0) 04/06/18 08:25 Ur Leukocyte Esterase Negative (NEGATIVE) 04/06/18 08:25 Urine WBC (Auto) <1 /hpf (3-5) 04/06/18 08:25 Urine RBC (Auto) 1 /hpf (0-3) 04/06/18 08:25 Ur Epithelial Cells Rare /HPF (FEW) 04/06/18 08:25 Urine Mucus Rare 04/06/18 08:25 RPR Titer Nonreactive (NONREACTIVE) 04/06/18 07:30 Assessment: 04/06/18 15:54 withdrawal symptom Plan: continue detox
[2018-04-06] MEDS: ACETAMINOPHEN 325 MG TABLET (FP) PO PRN ×2 (16:55→22:16)
[2018-04-06] MEDS: MELATONIN 5 MG TABLETS PO PRN (22:16)
[2018-04-06] MEDS: THIAMINE HCL 100 MG TABLET (FP) PO SCH (22:16)
[2018-04-06] MEDS: HYDROCORTISONE 0.5% TOPICAL CREAM 30 GM TUBE TP SCH (22:18)
[2018-04-07] MEDS: chlordiazePOXIDE HCL 25 MG CAPSULE PO SCH ×3 (06:30→17:38)
[2018-04-07] MEDS: PRENATAL VITAMINS W/ FOLIC ACID TABLET (FP) PO SCH (11:05)
[2018-04-07] MEDS: NICOTINE 14 MG/24 HOURS TOPICAL PATCH TD SCH (11:06)
[2018-04-07] MEDS: HYDROCORTISONE 0.5% TOPICAL CREAM 30 GM TUBE TP SCH ×2 (11:06→22:04)
[2018-04-07] MEDS: IBUPROFEN 400 MG TABLET (FP) PO PRN ×2 (11:07→18:59)
--- NOTE | 2018-04-07 11:12 | PN ---
S CIWA - CIWA Score Nausea/Vomitin Muscle Tremors: 2 Anxiety: 1-Mildly Anxious Agitation: 1-Slight > Activity Paroxysmal Sweats: 2 Orientation: 0-Oriented Tacttile Disturbances: 1-Very Mild Itch/Numbness Auditory Disturbances: 0-None Visual Disturbances: 0-None Headache: 2-Mild CIWA-Ar Total Score: 11 S Progress Note (SOAP) Subjective: interrupted slepp, headache Objective: 04/07/18 11:10 Vital Signs Temperature 97.7 F 04/07/18 10:07 Pulse Rate 81 04/07/18 10:07 Respiratory Rate 18 04/07/18 10:07 Blood Pressure 144/88 04/07/18 10:07 O2 Sat by Pulse Oximetry (%) Laboratory Tests 04/06/18 04/06/18 04/06/18 07:30 07:30 07:30 WBC 5.2 RBC 3.29 L Hgb 11.0 Hct 32.4 D MCV 98.5 H MCH 33.4 MCHC 33.9 RDW 15.7 H Plt Count 216 MPV 10.1 Sodium 145 Potassium 4.2 Chloride 109 H Carbon Dioxide 28 Anion Gap 8 BUN 16 Creatinine 1.0 Creat Clearance w eGFR > 60 Random Glucose 100 Calcium 9.0 Total Bilirubin 0.2 AST 29 ALT 31 Alkaline Phosphatase 40 L Total Protein 6.1 L Albumin 3.1 L Urine Color Urine Appearance Urine pH Ur Specific [place] Urine Protein Urine Glucose (UA) Urine Ketones Urine Blood Urine Nitrite Urine Bilirubin Urine Urobilinogen Ur Leukocyte Esterase Urine WBC (Auto) Urine RBC (Auto) Ur Epithelial Cells Urine Mucus RPR Titer Nonreactive 04/06/18 08:25 WBC RBC Hgb Hct MCV MCH MCHC RDW Plt Count MPV Sodium Potassium Chloride Carbon Dioxide Anion Gap BUN Creatinine Creat Clearance w eGFR Random Glucose Calcium Total Bilirubin AST ALT Alkaline Phosphatase Total Protein Albumin Urine Color Ltyellow Urine Appearance Clear Urine pH 5.0 Ur Specific [place] 1.019 Urine Protein Negative Urine Glucose (UA) Negative Urine Ketones Negative Urine Blood 1+ H Urine Nitrite Negative Urine Bilirubin Negative Urine Urobilinogen Negative Ur Leukocyte Esterase Negative Urine WBC (Auto) <1 Urine RBC (Auto) 1 Ur Epithelial Cells Rare Urine Mucus Rare RPR Titer pt aox3 in nad lying in bed Assessment: 04/07/18 11:10 withdrawal sx's mild anemia Plan: cont. detox increase fluids tylenol prn
[2018-04-07] MEDS: chlordiazePOXIDE 5 MG CAPSULE PO SCH (22:03)
[2018-04-07] MEDS: THIAMINE HCL 100 MG TABLET (FP) PO SCH (22:03)
[2018-04-07] MEDS: MELATONIN 5 MG TABLETS PO PRN (22:04)
[2018-04-08] MEDS: chlordiazePOXIDE 5 MG CAPSULE PO SCH ×3 (06:12→17:14)
[2018-04-08] MEDS: IBUPROFEN 400 MG TABLET (FP) PO PRN ×3 (06:12→22:24)
[2018-04-08] MEDS: HYDROCORTISONE 0.5% TOPICAL CREAM 30 GM TUBE TP SCH ×2 (10:23→22:24)
[2018-04-08] MEDS: PRENATAL VITAMINS W/ FOLIC ACID TABLET (FP) PO SCH (10:23)
[2018-04-08] MEDS: NICOTINE 14 MG/24 HOURS TOPICAL PATCH TD SCH (10:23)
--- NOTE | 2018-04-08 15:40 | PN ---
B[facility] Progress Note (SOAP) Subjective: pt states feeling better today, will follow-up out pt Vital Signs - 24 hr 04/07/18 04/07/18 04/08/18 17:35 22:56 00:30 Temperature 98.1 F 98.3 F Pulse Rate 75 100 H Respiratory 18 18 18 Rate Blood Pressure 144/96 145/93 04/08/18 04/08/18 04/08/18 03:30 07:02 07:34 Temperature 97.7 F Pulse Rate 69 69 Respiratory 18 18 18 Rate Blood Pressure 146/101 150/95 04/08/18 04/08/18 09:41 15:19 Temperature 97.7 F 97.9 F Pulse Rate 77 85 Respiratory 18 18 Rate Blood Pressure 118/89 119/22 Laboratory Tests 04/06/18 04/06/18 04/06/18 07:30 07:30 07:30 WBC 5.2 RBC 3.29 L Hgb 11.0 Hct 32.4 D MCV 98.5 H MCH 33.4 MCHC 33.9 RDW 15.7 H Plt Count 216 MPV 10.1 Sodium 145 Potassium 4.2 Chloride 109 H Carbon Dioxide 28 Anion Gap 8 BUN 16 Creatinine 1.0 Creat Clearance w eGFR > 60 Random Glucose 100 Calcium 9.0 Total Bilirubin 0.2 AST 29 ALT 31 Alkaline Phosphatase 40 L Total Protein 6.1 L Albumin 3.1 L Urine Color Urine Appearance Urine pH Ur Specific [place] Urine Protein Urine Glucose (UA) Urine Ketones Urine Blood Urine Nitrite Urine Bilirubin Urine Urobilinogen Ur Leukocyte Esterase Urine WBC (Auto) Urine RBC (Auto) Ur Epithelial Cells Urine Mucus RPR Titer Nonreactive 04/06/18 08:25 WBC RBC Hgb Hct MCV MCH MCHC RDW Plt Count MPV Sodium Potassium Chloride Carbon Dioxide Anion Gap BUN Creatinine Creat Clearance w eGFR Random Glucose Calcium Total Bilirubin AST ALT Alkaline Phosphatase Total Protein Albumin Urine Color Ltyellow Urine Appearance Clear Urine pH 5.0 Ur Specific [place] 1.019 Urine Protein Negative Urine Glucose (UA) Negative Urine Ketones Negative Urine Blood 1+ H Urine Nitrite Negative Urine Bilirubin Negative Urine Urobilinogen Negative Ur Leukocyte Esterase Negative Urine WBC (Auto) <1 Urine RBC (Auto) 1 Ur Epithelial Cells Rare Urine Mucus Rare RPR Titer nl VS mild anemia mild abnl UA low protein/albumin Ass: 42 Y.O. FEMALE WITH ALCOHOL AND COCAINE DEPENDENCE on alcohol DETOX protocol- doing better today, pt to go for outpt program at d/c from detox.
[2018-04-08] MEDS: THIAMINE HCL 100 MG TABLET (FP) PO SCH (22:24)
[2018-04-08] MEDS: chlordiazePOXIDE HCL 10 MG CAPSULE PO SCH (22:24)
[2018-04-08] MEDS: MELATONIN 5 MG TABLETS PO PRN (22:24)
[2018-04-09] MEDS: chlordiazePOXIDE HCL 10 MG CAPSULE PO SCH (06:27)
[2018-04-09] MEDS: IBUPROFEN 400 MG TABLET (FP) PO PRN (06:28)
[2018-04-09 07:33] VITALS: BP 141/91; PULSE 78; TEMP 97.5
--- NOTE | 2018-04-09 09:42 | PN ---
BHS Progress Note (SOAP) Subjective: i feel better Objective: 04/09/18 09:40 Vital Signs Temperature 97.5 F L 04/09/18 07:33 Pulse Rate 78 04/09/18 07:33 Respiratory Rate 18 04/09/18 07:33 Blood Pressure 141/91 04/09/18 07:33 O2 Sat by Pulse Oximetry (%) Laboratory Tests 04/06/18 04/06/18 04/06/18 07:30 07:30 07:30 WBC 5.2 RBC 3.29 L Hgb 11.0 Hct 32.4 D MCV 98.5 H MCH 33.4 MCHC 33.9 RDW 15.7 H Plt Count 216 MPV 10.1 Sodium 145 Potassium 4.2 Chloride 109 H Carbon Dioxide 28 Anion Gap 8 BUN 16 Creatinine 1.0 Creat Clearance w eGFR > 60 Random Glucose 100 Calcium 9.0 Total Bilirubin 0.2 AST 29 ALT 31 Alkaline Phosphatase 40 L Total Protein 6.1 L Albumin 3.1 L Urine Color Urine Appearance Urine pH Ur Specific [place] Urine Protein Urine Glucose (UA) Urine Ketones Urine Blood Urine Nitrite Urine Bilirubin Urine Urobilinogen Ur Leukocyte Esterase Urine WBC (Auto) Urine RBC (Auto) Ur Epithelial Cells Urine Mucus RPR Titer Nonreactive 04/06/18 08:25 WBC RBC Hgb Hct MCV MCH MCHC RDW Plt Count MPV Sodium Potassium Chloride Carbon Dioxide Anion Gap BUN Creatinine Creat Clearance w eGFR Random Glucose Calcium Total Bilirubin AST ALT Alkaline Phosphatase Total Protein Albumin Urine Color Ltyellow Urine Appearance Clear Urine pH 5.0 Ur Specific [place] 1.019 Urine Protein Negative Urine Glucose (UA) Negative Urine Ketones Negative Urine Blood 1+ H Urine Nitrite Negative Urine Bilirubin Negative Urine Urobilinogen Negative Ur Leukocyte Esterase Negative Urine WBC (Auto) <1 Urine RBC (Auto) 1 Ur Epithelial Cells Rare Urine Mucus Rare RPR Titer pt aox3 in nad ambualting Assessment: 04/09/18 09:41 detox completed Plan: d/c today hydration
--- NOTE | 2018-04-09 09:44 | DS ---
[facility] Detox Discharge Summary Admission Date: 04/05/18 Discharge Date: 04/09/18 - History Present History: Alcohol Dependence, Cocaine Dependence - Physical Exam Results Vital Signs: Vital Signs Temperature 97.5 F L 04/09/18 07:33 Pulse Rate 78 04/09/18 07:33 Respiratory Rate 18 04/09/18 07:33 Blood Pressure 141/91 04/09/18 07:33 O2 Sat by Pulse Oximetry (%) - Treatment Hospital Course: Detox Protocol Followed, Detoxed Safely, Responded well, Discharged Condition Good - Medication Discharge Medications: Ambulatory Orders Albuterol Sulfate Inhaler - [Ventolin HFA Inhaler -] 2 inh PO Q4H PRN #1 inhaler 07/30/17 - Diagnosis (1) Alcohol dependence with uncomplicated withdrawal Current Visit: Yes Status: Chronic (2) Asthma Current Visit: Yes Status: Chronic Qualifiers: Asthma severity: mild Asthma persistence: unspecified (3) Cocaine dependence, uncomplicated Current Visit: Yes Status: Chronic (4) GERD (gastroesophageal reflux disease) Current Visit: Yes Status: Chronic Qualifiers: Esophagitis presence: without esophagitis Qualified Code(s): K21.9 - Gastro -esophageal reflux disease without esophagitis (5) Nicotine dependence Current Visit: Yes Status: Chronic Qualifiers: Nicotine product type: cigarettes Substance use status: uncomplicated Qualified Code(s): F17.210 - Nicotine dependence, cigarettes, uncomplicated - AMA Did Patient Leave Against Medical Advice: No
[2018-04-09] MEDS: PRENATAL VITAMINS W/ FOLIC ACID TABLET (FP) PO SCH (09:48)
== END 2018-04-09 09:49 | disposition home or self-care (01) | DRG 774 ==
LOC: YASAS 19:35 → Y6N 23:53
PROVIDERS: ADMIT Surgery; ATTEND Surgery
PROC: HZ2ZZZZ Detoxification Services for Substance Abuse Treatment (ICD-10-PCS; principal; 2018-04-05)
DX: F10.230 Alcohol dependence with withdrawal, uncomplicated (principal); F14.20 Cocaine dependence, uncomplicated; F17.210 Nicotine dependence, cigarettes, uncomplicated; F19.24 Other psychoactive substance dependence with psychoactive substance-induced mood disorder; J45.998 Other asthma; K21.9 Gastro-esophageal reflux disease without esophagitis; D64.9 Anemia, unspecified; R82.90 Unspecified abnormal findings in urine; L30.9 Dermatitis, unspecified; R00.1 Bradycardia, unspecified
CPT/HCPCS: 36415; 80053; 81003; 81015; 85027; 86593; 93005; 93010

== ENCOUNTER 2018-05-18 08:03 | Inpatient (IN) | payer OTHER ==
[2018-05-18 08:24] VITALS: BMI 28.8
--- NOTE | 2018-05-18 08:31 | HP ---
CIWA Score - CIWA Score Nausea/Vomitin Muscle Tremors: 2 Anxiety: 2 Agitation: 2 Paroxysmal Sweats: 1-Minimal Palms Moist Orientation: 0-Oriented Tacttile Disturbances: 1-Very Mild Itch/Numbness Auditory Disturbances: 1-Very Mild Visual Disturbances: 1-Very Mild Sensitivity Headache: 2-Mild CIWA-Ar Total Score: 14 Admission ROS BHS - HPI Chief Complaint: i need help to stop drinking alcohol and cocaine Allergies/Adverse Reactions: Allergies Allergy/AdvReac Type Severity Reaction Status Date / Time No Known Allergies Allergy Verified 04/06/18 02:21 History of Present Illness: this 42 years old female with alcohol and cocaine dependence seeking detox, withdrawal symptom,last treatment [facility] ,18 to 8=04/09/18 syncope alcohol dependence iron deficiency anemia non compliance with taking medication nicotine dependence anxiety and depression longest sobiety 1 and a half years several admissions in the past but keep relapsing history of asthma and eczema - Ebola screening Have you traveled outside of the country in the last 21 days: No Have you had contact with anyone from an Ebola affected area: No Have you been sick,other than usual withdrawal symptoms: No Do you have a fever: No - Review of Systems Constitutional: Loss of Appetite, Malaise, Night Sweats, Changes in sleep, Weakness EENT: reports: Nose Congestion Respiratory: reports: No Symptoms reported Cardiac: reports: No Symptoms Reported GI: reports: Diarrhea, Nausea, Vomiting : reports: No Symptoms Reported Musculoskeletal: reports: Back Pain, Muscle Pain Integumentary: reports: Dryness Neuro: reports: Headache, Tremors Endocrine: reports: No Symptoms Reported Hematology: reports: No Symptoms Reported, Other (history of anemia) Psychiatric: reports: No Sypmtoms Reported, Judgement Intact, Mood/Affect Appropiate, Orientated x3, Agitated, Anxious, Depressed Patient History - Patient Medical History Hx Anemia: No Hx Asthma: Yes (on albuterol inhaler) Hx Chronic Obstructive Pulmonary Disease (COPD): No Hx Cancer: No Hx Cardiac Disorders: No Hx Congestive Heart Failure: No Hx Hypertension: No Hx Hypercholesterolemia: No Hx Pacemaker: No HX Cerebrovascular Accident: No Hx Seizures: No Hx Dementia: No Hx Diabetes: No Hx Gastrointestinal Disorders: No Hx Liver Disease: No Hx Genitourinary Disorders: No Hx Sexually Transmitted Disorders: No Hx Renal Disease (ESRD): No Hx Thyroid Disease: No Hx Human Immunodeficiency Virus (HIV): No (last 04/03 negative) Hx Hepatitis C: No Hx Depression: Yes Hx Suicide Attempt: No Hx Bipolar Disorder: No Hx Schizophrenia: No Other Medical History: anxiety,depression - Patient Surgical History Past Surgical History: No Hx Neurologic Surgery: No Hx Cataract Extraction: No Hx Cardiac Surgery: No Hx Lung Surgery: No Hx Breast Surgery: No Hx Breast Biopsy: No Hx Abdominal Surgery: No Hx Appendectomy: No Hx Cholecystectomy: No Hx Genitourinary Surgery: No Hx Section: No Hx Orthopedic Surgery: No Hx Hysterectomy: No Anesthesia Reaction: No - PPD History Previous Implant?: Yes Implanted On Prior [facility] Admission?: Yes Date: 05/31/17 Results: 0 mm PPD to be Administered?: Yes - Reproductive History Patient is a Female of Child Bearing Age (11 -55 yrs old): Yes Last Menstrual Period: 05/04/18 Patient : No - Smoking Cessation Smoking history: Current every day smoker Have you smoked in the past 12 months: Yes Aproximately how many cigarettes per day: 5 Cigars Per Day: 0 Hx Chewing Tobacco Use: No Initiated information on smoking cessation: Yes 'Breaking Loose' booklet given: 05/18/18 - Substance & Tx. History Hx Alcohol Use: Yes Hx Substance Use: Yes Substance Use Type: Alcohol, Cocaine Hx Substance Use Treatment: Yes ([facility] 04/05/18 04/09/18) - Substances Abused Alcohol Route: Oral Frequency: Daily Amount used: 1 to 2 pnts of vodka/1 case of 12 ozs of beer Age of first use: 11 Date of Last Use: 05/17/18 Cocaine Route: Smoking Frequency: 3-6 times per week Amount used: 100$ Age of first use: 24 Date of Last Use: 05/18/18 Family Disease History - Family Disease History Family Disease History: Heart Disease: Grandparent, Respiratory: Grandparent Admission Physical Exam S - Vital Signs Vital Signs: Vital Signs - 24 hr 05/18/18 08:21 Temperature 97.2 F L Pulse Rate 80 Respiratory 19 Rate Blood Pressure 113/83 - Physical General Appearance: Yes: Moderate Distress, Tremorous, Irritable, Anxious HEENTM: Yes: Normal ENT Inspection, GRECIA, Pharynx Normal Respiratory: Yes: Lungs Clear, Normal Breath Sounds, No Respiratory Distress Neck: Yes: Within Normal Limits, Supple, Trachea in good position Breast: Yes: Within Normal Limits Cardiology: Yes: Within Normal Limits, Regular Rhythm, Regular Rate, S1, S2 Abdominal: Yes: Normal Bowel Sounds, Non Tender, Soft, Organomegaly Genitourinary: Yes: Within Normal Limits Back: Yes: Within Normal Limits, Normal Inspection, Muscle Spasm Musculoskeletal: Yes: Back pain Extremities: Yes: Tremors, Other (eczema both hands) Neurological: Yes: Within Normal Limits, plant propagator II-XII NML intact, Fully Oriented, Alert, Motor Strength 5/5 Integumentary: Yes: Dry Lymphatic: Yes: Within Normal Limits - Diagnostic (1) Anxiety and depression Current Visit: Yes Status: Acute (2) Alcohol dependence with uncomplicated withdrawal Current Visit: No Status: Chronic (3) Asthma Current Visit: No Status: Chronic Qualifiers: Asthma severity: mild Asthma persistence: unspecified (4) Cocaine dependence, uncomplicated Current Visit: No Status: Chronic (5) Nicotine dependence Current Visit: No Status: Chronic Qualifiers: Nicotine product type: cigarettes Substance use status: uncomplicated Qualified Code(s): F17.210 - Nicotine dependence, cigarettes, uncomplicated (6) Syncope Current Visit: Yes Status: Acute (7) History of anemia Current Visit: Yes Status: Acute Cleared for Admission [facility] - Detox or Rehab [facility] Level of Care: Medically Managed Detox Regimen/Protocol: Librium [facility] Breath Alcohol Content Breath Alcohol Content: 0.010 Urine Pregancy Test - Result Urine Test Results: Negative- NO Line Present Urine Drug Screen - Results Drug Screen Negative: No Urine Drug Screen Results: FLOWER-Cocaine, BZO-Benzodiazepines
[2018-05-18] MEDS ORDERED: P-EPHED 60MG/TRIPROLIDI 2.5MG TABLET PO PRN (08:43)
[2018-05-18] MEDS ORDERED: guaiFENesin/D-METHORPHAN HB 10 ML UNIT-DOSE CUPS PO PRN (08:43)
[2018-05-18] MEDS ORDERED: MAG HYDROX/AL HYDROX/SIMETH 30 ML UNIT-DOSE CUP PO PRN (08:43)
[2018-05-18] MEDS ORDERED: NICOTINE POLACRILEX 2 MG GUM BUC PRN (08:43)
[2018-05-18] MEDS ORDERED: hydrOXYzine PAMOATE 25 MG CAPSULE (FP) PO PRN (08:43)
[2018-05-18] MEDS ORDERED: MAGNESIUM CITRATE 300 ML BOTTLE PO PRN (08:43)
[2018-05-18] MEDS ORDERED: LOPERAMIDE HCL 2 MG CAPSULE PO PRN (08:43)
[2018-05-18] MEDS ORDERED: MAGNESIUM HYDROX 2400MG/30ML ORAL SUSPENSION 30 ML CUP PO PRN (08:43)
[2018-05-18] MEDS ORDERED: MENTHOL/PHENOL 1 EACH UD MM PRN (08:43)
[2018-05-18] MEDS ORDERED: ALBUTEROL SO4 8 GM HFA INHALER IH PRN (08:45)
[2018-05-18] MEDS: PRENATAL VITAMINS W/ FOLIC ACID TABLET (FP) PO SCH (11:37)
[2018-05-18] MEDS: NICOTINE 21 MG/24 HOURS TOPICAL PATCH TD SCH (11:37)
[2018-05-18] MEDS: HYDROCORTISONE 0.5% TOPICAL CREAM 30 GM TUBE TP SCH ×2 (11:39→22:05)
[2018-05-18] MEDS ORDERED: chlordiazePOXIDE HCL 25 MG CAPSULE PO PRN (11:43)
--- NOTE | 2018-05-18 13:55 | CONSULT ---
[facility] Psychiatric Consult - Data Date of interview: 05/18/18 Admission source: [facility] Identifying data: Patient is a 42 year old single female, mother of one, unemployed, homeless, and is supported by [facility]. This is one of multiple admissions for patient. Patient admitted to for alcohol and cocaine dependence. Substance Abuse History: Smoking Cessation. Smoking history: Current every day smoker. Have you smoked in the past 12 months: Yes. Aproximately how many cigarettes per day: 5. Cigars Per Day: 0. Hx Chewing Tobacco Use: No. Initiated information on smoking cessation: Yes. 'Breaking Loose' booklet given : 05/18/18. - Substance & Tx. History. Hx Alcohol Use: Yes. Hx Substance Use : Yes. Substance Use Type: Alcohol, Cocaine. Hx Substance Use Treatment: Yes ( [facility] 04/05/18 04/09/18). - Substances Abused. Alcohol. Route: Oral. Frequency: Daily. Amount used: 1 to 2 pnts of vodka/1 case of 12 ozs of beer. Age of first use: 11. Date of Last Use: 05/17/18. Cocaine. Route: Smoking. Frequency: 3-6 times per week. Amount used: 100$. Age of first use: 24. Date of Last Use: 05/18/18 Medical History: Asthma Psychiatric History: Patient denies h/o psychiatric hospitalization, outpatient care, and suicide attempt. Physical/Sexual Abuse/Trauma History: denies. Mental Status Exam - Mental Status Exam Alert and Oriented to: Time, Place, Person Cognitive Function: Good Patient Appearance: Well Groomed Mood: Euthymic Affect: Mood Congruent Patient Behavior: Fatigued, Cooperative Speech Pattern: Appropriate Voice Loudness: Moderately Soft/Quiet Thought Process: Intact, Goal Oriented Thought Disorder: Not Present Hallucinations: Denies Suicidal Ideation: Denies Homicidal Ideation: Denies Insight/Judgement: Poor Sleep: Fair Appetite: Fair Muscle strength/Tone: Normal Gait/Station: Normal Psychiatric Findings - Problem List ([place] 1, 2,3) (1) Alcohol dependence with uncomplicated withdrawal Current Visit: Yes Status: Acute (2) Cocaine dependence, uncomplicated Current Visit: Yes Status: Chronic (3) Nicotine dependence Current Visit: No Status: Chronic Qualifiers: Nicotine product type: cigarettes Substance use status: uncomplicated Qualified Code(s): F17.210 - Nicotine dependence, cigarettes, uncomplicated - Initial Treatment Plan Initial Treatment Plan: Psychoeducation provided. Detoxification in progress. Observation.
--- NOTE | 2018-05-18 16:04 | EKG ---
Test Reason : Blood Pressure : / mmHG Vent. Rate : 070 BPM Atrial Rate : 070 BPM P-R Int : 156 ms QRS Dur : 084 ms QT Int : 404 ms P-R-T Axes : 059 051 037 degrees QTc Int : 436 ms NORMAL SINUS RHYTHM NORMAL ECG WHEN COMPARED WITH ECG OF 06-APR-2018 01:12, T WAVE AMPLITUDE HAS DECREASED IN ANTERIOR LEADS Confirmed by Daniel Garcia MD ([id number]) on 05/18/2018 4:04:04 PM Referred By: Confirmed By:Daniel Garcia MD
[2018-05-18] MEDS: chlordiazePOXIDE HCL 25 MG CAPSULE PO SCH ×2 (17:26→22:05)
[2018-05-18 18:03] LABS: URINE APPEARANCE CLEAR; URINE BILIRUBIN NEGATIVE (<2.0 mg/dL); URINE COLOR LTYELLOW; URINE GLUCOSE (UA) NEGATIVE (NEGATIVE); URINE KETONE NEGATIVE (NEGATIVE); URINE LEUK ESTERASE NEGATIVE (NEGATIVE); URINE NITRITE NEGATIVE (NEGATIVE); URINE PROTEIN NEGATIVE (NEGATIVE); URINE UROBILINOGEN NEGATIVE mg/dL (0.2-1.0)
[2018-05-18] MEDS: IBUPROFEN 400 MG TABLET (FP) PO PRN (20:55)
[2018-05-18] MEDS: THIAMINE HCL 100 MG TABLET (FP) PO SCH (22:05)
[2018-05-19] MEDS: chlordiazePOXIDE HCL 25 MG CAPSULE PO SCH ×4 (05:21→22:16)
[2018-05-19] MEDS: ACETAMINOPHEN 325 MG TABLET (FP) PO PRN ×3 (05:22→22:17)
[2018-05-19] MEDS: PRENATAL VITAMINS W/ FOLIC ACID TABLET (FP) PO SCH (10:06)
[2018-05-19] MEDS: NICOTINE 21 MG/24 HOURS TOPICAL PATCH TD SCH (10:07)
[2018-05-19] MEDS: HYDROCORTISONE 0.5% TOPICAL CREAM 30 GM TUBE TP SCH ×2 (10:07→22:16)
[2018-05-19 10:24] LABS: HEMATOCRIT 38.7 % (32.4-45.2); HEMOGLOBIN 12.4 GM/dL (10.7-15.3); MCH 32.2 pg (25.7-33.7); MCHC 32.1 g/dl (32.0-36.0); MEAN CELL VOLUME 100.3 fl (80-96); MEAN PLT VOLUME 10.1 fl (7.5-11.1); PLATELET COUNT 218 K/MM3 (134-434); RBC 3.86 M/mm3 (3.60-5.2); RDW 15.4 % (11.6-15.6); WHITE BLOOD COUNT 4.8 K/mm3 (4.0-10.0)
[2018-05-19 11:12] LABS: ALBUMIN 3.8 g/dl (3.4-5.0); ALK PHOS 50 U/L (45-117); ANION GAP 10 MMOL/L (8-16); BILIRUBIN,TOTAL 0.3 mg/dL (0.2-1); BLOOD UREA NITROGEN 12 mg/dL (7-18); CALCIUM 8.7 mg/dL (8.5-10.1); CHLORIDE 104 mmol/L (98-107); CO2 25 mmol/L (21-32); CREATININE 0.9 mg/dL (0.55-1.3); GLUCOSE,RANDOM 77 mg/dL (74-106); POTASSIUM 4.6 mmol/L (3.5-5.1); SGOT/AST 16 U/L (15-37); SGPT/ALT 14 U/L (13-61); SODIUM 138 mmol/L (136-145); TOT PROT 7.2 g/dl (6.4-8.2)
[2018-05-19] MEDS ORDERED: LIDOCAINE VISCOUS 2% ORAL/TOP 20 ML UNIT-DOSE CUP MM PRN (11:17)
--- NOTE | 2018-05-19 11:17 | PN ---
S CIWA - CIWA Score Nausea/Vomitin-No Nausea/No Vomiting Muscle Tremors: 3 Anxiety: 3 Agitation: 3 Paroxysmal Sweats: 3 Orientation: 0-Oriented Tacttile Disturbances: 0-None Auditory Disturbances: 0-None Visual Disturbances: 0-None Headache: 0-None Present CIWA-Ar Total Score: 12 BHS Progress Note (SOAP) Subjective: agitation anxiety sweats toothache irritable Objective: 05/19/18 11:16 Vital Signs Temperature 98.1 F 05/19/18 09:10 Pulse Rate 80 05/19/18 09:10 Respiratory Rate 16 05/19/18 09:10 Blood Pressure 134/88 05/19/18 09:10 O2 Sat by Pulse Oximetry (%) Laboratory Tests 05/18/18 05/19/18 05/19/18 16:30 06:00 06:00 WBC 4.8 RBC 3.86 Hgb 12.4 Hct 38.7 D MCV 100.3 H MCH 32.2 MCHC 32.1 RDW 15.4 Plt Count 218 MPV 10.1 Sodium 138 Potassium 4.6 Chloride 104 Carbon Dioxide 25 Anion Gap 10 BUN 12 Creatinine 0.9 Creat Clearance w eGFR > 60 Random Glucose 77 Calcium 8.7 Total Bilirubin 0.3 AST 16 ALT 14 Alkaline Phosphatase 50 Total Protein 7.2 Albumin 3.8 Urine Color Ltyellow Urine Appearance Clear Urine pH 5.0 Ur Specific [place] 1.013 Urine Protein Negative Urine Glucose (UA) Negative Urine Ketones Negative Urine Blood Negative Urine Nitrite Negative Urine Bilirubin Negative Urine Urobilinogen Negative Ur Leukocyte Esterase Negative aaox3 ambulating no acute distress Assessment: 05/19/18 11:16 withdrawal sx Plan: continue detox increase fluids lidocaine s/s for toothache
[2018-05-19] MEDS: IBUPROFEN 400 MG TABLET (FP) PO PRN (17:01)
[2018-05-19] MEDS: THIAMINE HCL 100 MG TABLET (FP) PO SCH (22:16)
[2018-05-19] MEDS: MELATONIN 5 MG TABLETS PO PRN (22:18)
[2018-05-20] MEDS: chlordiazePOXIDE HCL 25 MG CAPSULE PO SCH ×2 (04:13→10:27)
[2018-05-20] MEDS: IBUPROFEN 400 MG TABLET (FP) PO PRN (04:13)
[2018-05-20] MEDS ORDERED: BENZOCAINE 20 % GEL TUBE MM PRN (08:55)
--- NOTE | 2018-05-20 10:06 | PN ---
S CIWA - CIWA Score Nausea/Vomitin-No Nausea/No Vomiting Muscle Tremors: 2 Anxiety: 3 Agitation: 2 Paroxysmal Sweats: 2 Orientation: 0-Oriented Tacttile Disturbances: 1-Very Mild Itch/Numbness Auditory Disturbances: 0-None Visual Disturbances: 1-Very Mild Sensitivity Headache: 1-Very Mild CIWA-Ar Total Score: 12 S Progress Note (SOAP) Subjective: c/o dental pain, interrupted sleep, chills Objective: 05/20/18 10:09 Vital Signs Temperature 98.2 F 05/20/18 09:54 Pulse Rate 87 05/20/18 09:54 Respiratory Rate 19 05/20/18 09:54 Blood Pressure 124/78 05/20/18 09:54 O2 Sat by Pulse Oximetry (%) Laboratory Last Values WBC 4.8 K/mm3 (4.0-10.0) 05/19/18 06:00 RBC 3.86 M/mm3 (3.60-5.2) 05/19/18 06:00 Hgb 12.4 GM/dL (10.7-15.3) 05/19/18 06:00 Hct 38.7 % (32.4-45.2) D 05/19/18 06:00 MCV 100.3 fl (80-96) H 05/19/18 06:00 MCH 32.2 pg (25.7-33.7) 05/19/18 06:00 MCHC 32.1 g/dl (32.0-36.0) 05/19/18 06:00 RDW 15.4 % (11.6-15.6) 05/19/18 06:00 Plt Count 218 K/MM3 (134-434) 05/19/18 06:00 MPV 10.1 fl (7.5-11.1) 05/19/18 06:00 Sodium 138 mmol/L (136-145) 05/19/18 06:00 Potassium 4.6 mmol/L (3.5-5.1) 05/19/18 06:00 Chloride 104 mmol/L (98-107) 05/19/18 06:00 Carbon Dioxide 25 mmol/L (21-32) 05/19/18 06:00 Anion Gap 10 MMOL/L (8-16) 05/19/18 06:00 BUN 12 mg/dL (7-18) 05/19/18 06:00 Creatinine 0.9 mg/dL (0.55-1.3) 05/19/18 06:00 Creat Clearance w eGFR > 60 (>60) 05/19/18 06:00 Random Glucose 77 mg/dL (74-106) 05/19/18 06:00 Calcium 8.7 mg/dL (8.5-10.1) 05/19/18 06:00 Total Bilirubin 0.3 mg/dL (0.2-1) 05/19/18 06:00 AST 16 U/L (15-37) 05/19/18 06:00 ALT 14 U/L (13-61) 05/19/18 06:00 Alkaline Phosphatase 50 U/L (45-117) 05/19/18 06:00 Total Protein 7.2 g/dl (6.4-8.2) 05/19/18 06:00 Albumin 3.8 g/dl (3.4-5.0) 05/19/18 06:00 Urine Color Ltyellow 05/18/18 16:30 Urine Appearance Clear 05/18/18 16:30 Urine pH 5.0 (5.0-8.0) 05/18/18 16:30 Ur Specific [place] 1.013 (1.001-1.035) 05/18/18 16:30 Urine Protein Negative (NEGATIVE) 05/18/18 16:30 Urine Glucose (UA) Negative (NEGATIVE) 05/18/18 16:30 Urine Ketones Negative (NEGATIVE) 05/18/18 16:30 Urine Blood Negative (NEGATIVE) 05/18/18 16:30 Urine Nitrite Negative (NEGATIVE) 05/18/18 16:30 Urine Bilirubin Negative (<2.0 mg/dL) 05/18/18 16:30 Urine Urobilinogen Negative mg/dL (0.2-1.0) 05/18/18 16:30 Ur Leukocyte Esterase Negative (NEGATIVE) 05/18/18 16:30 RPR Titer Nonreactive (NONREACTIVE) 05/19/18 06:00 Labs reviewed Aox3 no distress + poor dentition, multiple caries, neg gum erythema or blood no adventitious breath sounds full ROM ambulating in the unit withdrawal sx dentalgia Plan: anbesol PRN ibuprofen increased from 400mg to to 600 mg TID Continue detox Patient to follow up with dentist upon discharge continue to monitor
[2018-05-20] MEDS: HYDROCORTISONE 0.5% TOPICAL CREAM 30 GM TUBE TP SCH ×2 (10:27→22:29)
[2018-05-20] MEDS: PRENATAL VITAMINS W/ FOLIC ACID TABLET (FP) PO SCH (10:27)
[2018-05-20] MEDS: NICOTINE 21 MG/24 HOURS TOPICAL PATCH TD SCH (10:27)
[2018-05-20] MEDS: IBUPROFEN 600 MG TABLET (FP) PO PRN ×2 (10:47→22:30)
[2018-05-20] MEDS: chlordiazePOXIDE 5 MG CAPSULE PO SCH ×2 (17:00→22:29)
[2018-05-20] MEDS: ACETAMINOPHEN 325 MG TABLET (FP) PO PRN (18:39)
[2018-05-20] MEDS: THIAMINE HCL 100 MG TABLET (FP) PO SCH (22:29)
[2018-05-20] MEDS: MELATONIN 5 MG TABLETS PO PRN (22:31)
[2018-05-21] MEDS: ACETAMINOPHEN 325 MG TABLET (FP) PO PRN ×2 (03:27→22:18)
[2018-05-21] MEDS: chlordiazePOXIDE 5 MG CAPSULE PO SCH ×2 (05:28→10:33)
[2018-05-21] MEDS: IBUPROFEN 600 MG TABLET (FP) PO PRN ×2 (08:51→17:30)
[2018-05-21] MEDS: PRENATAL VITAMINS W/ FOLIC ACID TABLET (FP) PO SCH (10:33)
[2018-05-21] MEDS: NICOTINE 21 MG/24 HOURS TOPICAL PATCH TD SCH (10:33)
[2018-05-21] MEDS: HYDROCORTISONE 0.5% TOPICAL CREAM 30 GM TUBE TP SCH ×2 (10:35→22:15)
[2018-05-21] MEDS: cloNIDine HCL 0.1 MG TABLET PO SCH (12:07)
--- NOTE | 2018-05-21 13:37 | PN ---
S Progress Note Note: PATIENT C/O TOOTHACHE. DENIES HEADACHE, CP, BODY ACHES, SHAKES AND SOB Vital Signs Temperature 98.2 F 05/21/18 09:35 Pulse Rate 80 05/21/18 09:36 Respiratory Rate 19 05/21/18 09:36 Blood Pressure 153/113 H 05/21/18 09:36 O2 Sat by Pulse Oximetry (%) Laboratory Tests 05/18/18 05/19/18 05/19/18 16:30 06:00 06:00 WBC 4.8 RBC 3.86 Hgb 12.4 Hct 38.7 D MCV 100.3 H MCH 32.2 MCHC 32.1 RDW 15.4 Plt Count 218 MPV 10.1 Sodium 138 Potassium 4.6 Chloride 104 Carbon Dioxide 25 Anion Gap 10 BUN 12 Creatinine 0.9 Creat Clearance w eGFR > 60 Random Glucose 77 Calcium 8.7 Total Bilirubin 0.3 AST 16 ALT 14 Alkaline Phosphatase 50 Total Protein 7.2 Albumin 3.8 Urine Color Ltyellow Urine Appearance Clear Urine pH 5.0 Ur Specific [place] 1.013 Urine Protein Negative Urine Glucose (UA) Negative Urine Ketones Negative Urine Blood Negative Urine Nitrite Negative Urine Bilirubin Negative Urine Urobilinogen Negative Ur Leukocyte Esterase Negative RPR Titer 05/19/18 06:00 WBC RBC Hgb Hct MCV MCH MCHC RDW Plt Count MPV Sodium Potassium Chloride Carbon Dioxide Anion Gap BUN Creatinine Creat Clearance w eGFR Random Glucose Calcium Total Bilirubin AST ALT Alkaline Phosphatase Total Protein Albumin Urine Color Urine Appearance Urine pH Ur Specific [place] Urine Protein Urine Glucose (UA) Urine Ketones Urine Blood Urine Nitrite Urine Bilirubin Urine Urobilinogen Ur Leukocyte Esterase RPR Titer Nonreactive ALERT AND ORIENTED SKIN WARM AND DRY CAR S1S2 RESP CTA BL EXT NO EDEMA, FULL ROM MOUTH/TEETH + BRIDGE, TOOTH DECAY A/P; WITHDRAWAL SYNDROME CONTINUE DETOX MOTRIN AND ORAGEL TO FOLLOW UP WITH DENTIST UPON D/C CONTINUE TO MONITOR
[2018-05-21] MEDS: chlordiazePOXIDE HCL 10 MG CAPSULE PO SCH ×2 (17:29→22:15)
[2018-05-21] MEDS: THIAMINE HCL 100 MG TABLET (FP) PO SCH (22:16)
[2018-05-21] MEDS: MELATONIN 5 MG TABLETS PO PRN (22:17)
[2018-05-21 22:36] VITALS: TEMP 98.1
[2018-05-22] MEDS: IBUPROFEN 600 MG TABLET (FP) PO PRN (03:25)
[2018-05-22] MEDS: chlordiazePOXIDE HCL 10 MG CAPSULE PO SCH (05:48)
[2018-05-22] MEDS: ACETAMINOPHEN 325 MG TABLET (FP) PO PRN (05:49)
[2018-05-22 06:45] VITALS: BP 135/90; PULSE 80
[2018-05-22] MEDS: cloNIDine HCL 0.1 MG TABLET PO SCH (09:26)
[2018-05-22] MEDS: PRENATAL VITAMINS W/ FOLIC ACID TABLET (FP) PO SCH (09:26)
--- NOTE | 2018-05-22 13:39 | DS ---
[facility] Detox Discharge Summary Admission Date: 05/18/18 Discharge Date: 05/22/18 - History Present History: Alcohol Dependence - Physical Exam Results Vital Signs: Vital Signs Temperature 98.1 F 05/22/18 06:00 Pulse Rate 80 05/22/18 06:00 Respiratory Rate 18 05/22/18 06:00 Blood Pressure 135/90 05/22/18 06:00 O2 Sat by Pulse Oximetry (%) Pertinent Admission Physical Exam Findings: PATIENT TOLERATED DETOX WELL. COMPLETED TREATMENT TODAY. MEDICALLY STABLE. DENIES SI/HI. TO FOLLOW UP WITH [facility] 05/25/18. ALERT AND ORIENTED. IN NAD. AMB AD YING. PATIENT ENCOURAGED TO ATTEND GROUP MEETINGS TO PREVENT DETOX AND TO GO TO ER IF WITHDRAWAL SYMPTOMS OCCUR. DISCHAGRE INSTRUCTIONS PROVIDED BY STAFF. - Treatment Hospital Course: Detox Protocol Followed, Detoxed Safely, Responded well, Discharged Condition Good, Rehab Referral Accepted Patient has Accepted a Rehab Referral to: [facility] - Medication Discharge Medications: Ambulatory Orders Hydrocortisone 0.5% Cream [Hytone 0.5% Cream -] 1 applic TP BID #1 tube Albuterol Sulfate Inhaler - [Ventolin HFA Inhaler -] 2 inh PO Q4H PRN #1 inhaler 05/21/18 - Diagnosis (1) Alcohol dependence with uncomplicated withdrawal Status: Resolved - AMA Did Patient Leave Against Medical Advice: No
== END 2018-05-22 09:41 | disposition home or self-care (01) | DRG 774 ==
LOC: YASAS 08:03 → Y6N 09:23
PROC: HZ2ZZZZ Detoxification Services for Substance Abuse Treatment (ICD-10-PCS; principal; 2018-05-18)
DX: F10.230 Alcohol dependence with withdrawal, uncomplicated (principal); F14.20 Cocaine dependence, uncomplicated; F17.210 Nicotine dependence, cigarettes, uncomplicated; F19.24 Other psychoactive substance dependence with psychoactive substance-induced mood disorder; F41.8 Other specified anxiety disorders; F32.9 Major depressive disorder, single episode, unspecified; J45.909 Unspecified asthma, uncomplicated; K21.9 Gastro-esophageal reflux disease without esophagitis; K08.89 Other specified disorders of teeth and supporting structures; D64.9 Anemia, unspecified; L30.9 Dermatitis, unspecified; R55 Syncope and collapse
CPT/HCPCS: 36415; 80053; 81003; 85027; 86593; 93005; 93010; J0735

== ENCOUNTER 2018-05-26 09:11 | Inpatient (IN) | payer OTHER ==
[2018-05-26 09:45] VITALS: BMI 29.8
[2018-05-26] MEDS ORDERED: LOPERAMIDE HCL 2 MG CAPSULE PO PRN (10:16)
[2018-05-26] MEDS ORDERED: MAGNESIUM CITRATE 300 ML BOTTLE PO PRN (10:16)
[2018-05-26] MEDS ORDERED: MAG HYDROX/AL HYDROX/SIMETH 30 ML UNIT-DOSE CUP PO PRN (10:16)
[2018-05-26] MEDS ORDERED: MENTHOL/PHENOL 1 EACH UD MM PRN (10:16)
[2018-05-26] MEDS ORDERED: MAGNESIUM HYDROX 2400MG/30ML ORAL SUSPENSION 30 ML CUP PO PRN (10:16)
[2018-05-26] MEDS ORDERED: guaiFENesin/D-METHORPHAN HB 10 ML UNIT-DOSE CUPS PO PRN (10:16)
[2018-05-26] MEDS ORDERED: IBUPROFEN 400 MG TABLET (FP) PO PRN (10:16)
[2018-05-26] MEDS ORDERED: P-EPHED 60MG/TRIPROLIDI 2.5MG TABLET PO PRN (10:16)
[2018-05-26] MEDS ORDERED: hydrOXYzine PAMOATE 50 MG CAPSULE (FP) PO PRN (10:16)
[2018-05-26] MEDS ORDERED: ALBUTEROL SO4 8 GM HFA INHALER IH PRN (10:18)
[2018-05-26 14:56] LABS: URINE APPEARANCE SLCLOUDY; URINE BILIRUBIN NEGATIVE (<2.0 mg/dL); URINE COLOR LTYELLOW; URINE GLUCOSE (UA) NEGATIVE (NEGATIVE); URINE KETONE NEGATIVE (NEGATIVE); URINE LEUK ESTERASE 1+ (NEGATIVE); URINE NITRITE NEGATIVE (NEGATIVE); URINE PROTEIN NEGATIVE (NEGATIVE); URINE UROBILINOGEN NEGATIVE mg/dL (0.2-1.0)
[2018-05-26 15:13] LABS: EPI CELLS FEW /HPF (FEW); URINE BACTERIA RARE /hpf (NONE SEEN); URINE HYALINE CAST 3 /lpf; URINE MUCUS RARE
--- NOTE | 2018-05-26 15:58 | HP ---
Psychiatrist Admission - Data Date of interview: 05/26/18 Admission source: [address] [place] [address] Identifying data: This is the first admission to [address] [place] [address] rehabilitation for this 42 years old AA single mother of 18 yo daughter(girl resides with her Godfather).patient is homeless,supported by [facility]. Medical History: GERD,BA,Eczema. Psychiatric History: Patient denies previous psychiatric history.Reports no psychiatric hospitalizations.No suicidal attempts . Physical/Sexual Abuse/Trauma History: denies Vital Signs: Vital Signs - 24 hr 05/26/18 05/26/18 09:26 11:57 Temperature 96.5 F L 97.7 F Pulse Rate 73 81 Respiratory 18 18 Rate Blood Pressure 121/78 118/74 Allergies/Adverse Reactions: Allergies Allergy/AdvReac Type Severity Reaction Status Date / Time No Known Allergies Allergy Verified 05/26/18 10:03 Date of last physical exam: 05/26/18 Concur with the findings of this exam: Yes - Substance Abuse/Tx History Hx Alcohol Use: Yes (drinking since 11 yo,vodka 1 pint daily) Hx Substance Use: Yes (cocaine/crack since 24 yo,spending $50 daily) Substance Use Type: Alcohol, Cocaine Hx Substance Use Treatment: Yes (this is her first inpatient rehab treatment) Mental Status Exam - Mental Status Exam Alert and Oriented to: Time, Place, Person Cognitive Function: Grossly Intact Patient Appearance: Unkempt Mood: Euthymic Affect: Appropriate, Mood Congruent, Normal Range Patient Behavior: Cooperative Speech Pattern: Clear Voice Loudness: Normal Thought Process: Goal Oriented Thought Disorder: Not Present Hallucinations: Denies Suicidal Ideation: Denies Homicidal Ideation: Denies Insight/Judgement: Fair Sleep: Fair Appetite: Fair Muscle strength/Tone: Normal Gait/Station: Normal Psychiatric Findings - Problem List ([place] 1, 2,3) (1) Asthma Current Visit: Yes Status: Chronic (2) Eczema of both hands Current Visit: Yes Status: Chronic (3) Cocaine dependence Current Visit: Yes Status: Acute (4) GERD (gastroesophageal reflux disease) Current Visit: Yes Status: Chronic Qualifiers: (5) Nicotine dependence Current Visit: Yes Status: Chronic Qualifiers: (6) Drug-induced mood disorder Current Visit: Yes Status: Suspected (7) Alcohol dependence with uncomplicated withdrawal Current Visit: Yes Status: Chronic - Initial Treatment Plan Initial Treatment Plan: Will monitor progress.
[2018-05-26] MEDS: HYDROCORTISONE 0.5% TOPICAL CREAM 30 GM TUBE TP SCH (21:30)
[2018-05-26] MEDS: THIAMINE HCL 100 MG TABLET (FP) PO SCH (21:30)
[2018-05-26] MEDS ORDERED: MELATONIN 5 MG TABLETS PO PRN (22:00)
[2018-05-27] MEDS ORDERED: PT OWN MED DRAWER 7, Y5N ONE ×2 (08:38→10:24)
[2018-05-27] MEDS: PRENATAL VITAMINS W/ FOLIC ACID TABLET (FP) PO SCH (10:18)
[2018-05-27] MEDS: HYDROCORTISONE 0.5% TOPICAL CREAM 30 GM TUBE TP SCH ×2 (10:18→21:22)
[2018-05-27] MEDS ORDERED: BENZOCAINE 20 % GEL TUBE MM PRN (13:55)
--- NOTE | 2018-05-27 13:56 | PN ---
S Progress Note Note: Vital Signs Temperature 97.7 F 05/27/18 06:00 Pulse Rate 78 05/27/18 06:00 Respiratory Rate 18 05/27/18 06:00 Blood Pressure 145/97 05/27/18 06:00 O2 Sat by Pulse Oximetry (%) c/o of dental pain anbel PRN ibuprofen PRN continue to monitor
[2018-05-27] MEDS: THIAMINE HCL 100 MG TABLET (FP) PO SCH (21:20)
[2018-05-27] MEDS: IBUPROFEN 600 MG TABLET (FP) PO PRN (21:21)
[2018-05-28] MEDS ORDERED: PT OWN MED DRAWER 7, Y5N ONE (08:21)
[2018-05-28] MEDS: PRENATAL VITAMINS W/ FOLIC ACID TABLET (FP) PO SCH (10:03)
[2018-05-28] MEDS: IBUPROFEN 600 MG TABLET (FP) PO PRN ×2 (10:03→21:19)
[2018-05-28] MEDS: HYDROCORTISONE 0.5% TOPICAL CREAM 30 GM TUBE TP SCH ×2 (10:16→21:20)
[2018-05-28] MEDS: ACETAMINOPHEN 325 MG TABLET (FP) PO PRN (17:09)
[2018-05-28] MEDS: THIAMINE HCL 100 MG TABLET (FP) PO SCH (21:19)
[2018-05-29] MEDS: HYDROCORTISONE 0.5% TOPICAL CREAM 30 GM TUBE TP SCH ×2 (09:36→21:22)
[2018-05-29] MEDS: PRENATAL VITAMINS W/ FOLIC ACID TABLET (FP) PO SCH (09:36)
[2018-05-29] MEDS: IBUPROFEN 600 MG TABLET (FP) PO PRN ×2 (14:52→21:24)
[2018-05-29] MEDS: THIAMINE HCL 100 MG TABLET (FP) PO SCH (21:22)
[2018-05-30] MEDS: ACETAMINOPHEN 325 MG TABLET (FP) PO PRN (06:53)
[2018-05-30] MEDS: HYDROCORTISONE 0.5% TOPICAL CREAM 30 GM TUBE TP SCH ×2 (09:43→21:31)
[2018-05-30] MEDS: PRENATAL VITAMINS W/ FOLIC ACID TABLET (FP) PO SCH (09:43)
[2018-05-30] MEDS: THIAMINE HCL 100 MG TABLET (FP) PO SCH (21:31)
[2018-05-30] MEDS: IBUPROFEN 600 MG TABLET (FP) PO PRN (21:32)
[2018-05-31] MEDS: IBUPROFEN 600 MG TABLET (FP) PO PRN ×2 (06:38→15:39)
[2018-05-31 07:29] VITALS: BP 123/84; PULSE 76; TEMP 98.1
[2018-05-31] MEDS: HYDROCORTISONE 0.5% TOPICAL CREAM 30 GM TUBE TP SCH (09:38)
[2018-05-31] MEDS: PRENATAL VITAMINS W/ FOLIC ACID TABLET (FP) PO SCH (09:38)
== END 2018-05-31 18:29 | disposition left against medical advice (07) | DRG 770 ==
LOC: YASAS 09:11 → Y3E 10:33
PROVIDERS: ADMIT Psychiatry & Neurology Psychiatry; ATTEND Psychiatry & Neurology Psychiatry
PROC: HZ42ZZZ Group Counseling for Substance Abuse Treatment, Cognitive-Behavioral (ICD-10-PCS; principal; 2018-05-26)
DX: F10.20 Alcohol dependence, uncomplicated (principal); F14.20 Cocaine dependence, uncomplicated; F17.210 Nicotine dependence, cigarettes, uncomplicated; F19.24 Other psychoactive substance dependence with psychoactive substance-induced mood disorder; K21.9 Gastro-esophageal reflux disease without esophagitis; L30.9 Dermatitis, unspecified; K08.89 Other specified disorders of teeth and supporting structures
CPT/HCPCS: 81003; 81015

== ENCOUNTER 2018-06-24 08:31 | Inpatient (IN) | payer OTHER ==
[2018-06-24 09:01] VITALS: BMI 29.8
--- NOTE | 2018-06-24 09:31 | HP ---
CIWA Score Nausea/Vomitin Muscle Tremors: 2 Anxiety: 2 Agitation: 2 Paroxysmal Sweats: 1-Minimal Palms Moist Orientation: 0-Oriented Tacttile Disturbances: 1-Very Mild Itch/Numbness Auditory Disturbances: 1-Very Mild Visual Disturbances: 0-None Headache: 2-Mild CIWA-Ar Total Score: 13 - Admission Criteria OASAS Guidelines: Admission for Medically Managed Detox: Requires at least one of the followin. CIWA greater than 12 2. Seizures within the past 24 hours 3. Delirium tremens within the past 24 hours 4. Hallucinations within the past 24 hours 5. Acute intervention needed for co occurring medical disorder 6. Acute intervention needed for co occurring psychiatric disorder 7. Severe withdrawal that cannot be handled at a lower level of care (continued vomiting, continued diarrhea, abnormal vital signs) requiring intravenous medication and/or fluids 8. Patient presents the following: CIWA greater than 12 Admission Criteria Met: Admission criteria met Admission ROS B[facility] - HPI Chief Complaint: i need help to stop drinking alcohol and cocaine Allergies/Adverse Reactions: Allergies Allergy/AdvReac Type Severity Reaction Status Date / Time shrimp Allergy Severe Hives Verified 06/24/18 09:25 NKDA Allergy Uncoded 06/24/18 09:25 History of Present Illness: this 42 years old female with alcohol and cocaine dependence seeking detox, withdrawal symp[douglas,last detox [facility] 05/18/18 to 05/22/18,rehab 05/26/18 to 05/31 not completed syncope alcohol related,last 1 week ago multiple admissions in the past but relapsed asthma nicotine dependence longest period of sobriety is 3 years Exam Limitations: No Limitations - Ebola screening Have you traveled outside of the country in the last 21 days: No Have you had contact with anyone from an Ebola affected area: No Have you been sick,other than usual withdrawal symptoms: No Do you have a fever: No - Review of Systems Constitutional: Loss of Appetite, Malaise, Night Sweats, Changes in sleep, Weakness EENT: reports: Nose Congestion Respiratory: reports: No Symptoms reported, Other (asthma) Cardiac: reports: No Symptoms Reported GI: reports: Nausea, Poor Appetite, Abdominal cramping : reports: No Symptoms Reported Musculoskeletal: reports: Back Pain, Muscle Pain Integumentary: reports: Dryness Neuro: reports: Headache, Tremors Endocrine: reports: No Symptoms Reported Hematology: reports: No Symptoms Reported Psychiatric: reports: No Sypmtoms Reported, Judgement Intact, Mood/Affect Appropiate, Orientated x3 Patient History - Patient Medical History Hx Anemia: No Hx Asthma: Yes (on albuterol inhaler) Hx Chronic Obstructive Pulmonary Disease (COPD): No Hx Cancer: No Hx Cardiac Disorders: No Hx Congestive Heart Failure: No Hx Hypertension: No Hx Hypercholesterolemia: No Hx Pacemaker: No HX Cerebrovascular Accident: No Hx Seizures: No Hx Dementia: No Hx Diabetes: No Hx Gastrointestinal Disorders: No Hx Liver Disease: No Hx Genitourinary Disorders: No Hx Sexually Transmitted Disorders: No Hx Renal Disease (ESRD): No Hx Thyroid Disease: No Hx Human Immunodeficiency Virus (HIV): No (last 04/03 negative) Hx Hepatitis C: No Hx Depression: No Hx Suicide Attempt: No Hx Bipolar Disorder: No Hx Schizophrenia: No Other Medical History: no suicidal,no homicidal - Patient Surgical History Past Surgical History: No Hx Neurologic Surgery: No Hx Cataract Extraction: No Hx Cardiac Surgery: No Hx Lung Surgery: No Hx Breast Surgery: No Hx Breast Biopsy: No Hx Abdominal Surgery: No Hx Appendectomy: No Hx Cholecystectomy: No Hx Genitourinary Surgery: No Hx Section: Yes (18 YEARS AGO) Hx Orthopedic Surgery: No Hx Hysterectomy: No Anesthesia Reaction: No - PPD History Previous Implant?: Yes Documented Results: Negative w/proof Implanted On Prior [facility] Admission?: Yes Date: 05/20/18 Results: 0 mm PPD to be Administered?: No - Reproductive History Patient is a Female of Child Bearing Age (11 -55 yrs old): Yes Last Menstrual Period: 05/30/18 Patient : No - Smoking Cessation Smoking history: Current every day smoker Have you smoked in the past 12 months: Yes Aproximately how many cigarettes per day: 5 Cigars Per Day: 0 Hx Chewing Tobacco Use: No Initiated information on smoking cessation: Yes 'Breaking Loose' booklet given: 06/24/18 - Substance & Tx. History Hx Alcohol Use: Yes Hx Substance Use: Yes Substance Use Type: Alcohol, Cocaine Hx Substance Use Treatment: Yes ([facility] 05/[facility]/18 to 05/22/18 detox,rehab 05/26/18 to 05/31/18 rehab not comple) - Substances Abused Crack Route: Smoking Frequency: 3-6 times per week Amount used: $50 Age of first use: 24 Date of Last Use: 06/24/18 Alcohol-beer/vodka Route: Oral Frequency: Daily Amount used: 1 1/2-6 pks./2 pts. Age of first use: 12 Date of Last Use: 06/24/18 Family Disease History - Family Disease History Family Disease History: Heart Disease: Grandparent, Respiratory: Grandparent, Other: Father (alcohol,), Mother (alcohol,sober) Admission Physical Exam [facility] - Vital Signs Vital Signs: Vital Signs - 24 hr 06/24/18 08:58 Temperature 96.7 F L Pulse Rate 96 H Respiratory 20 Rate Blood Pressure 141/93 - Physical General Appearance: Yes: Moderate Distress, Tremorous, Irritable, Sweating, Anxious HEENTM: Yes: Normal ENT Inspection, GRECIA, Pharynx Normal Respiratory: Yes: Lungs Clear, Normal Breath Sounds, No Respiratory Distress Neck: Yes: Within Normal Limits, Supple, Trachea in good position Breast: Yes: Breast Exam Deferred Cardiology: Yes: Within Normal Limits, Regular Rhythm, Regular Rate, S1, S2 Abdominal: Yes: Within Normal Limits, Normal Bowel Sounds, Non Tender, Soft Genitourinary: Yes: Within Normal Limits Back: Yes: Muscle Spasm Musculoskeletal: Yes: Back pain, Muscle Pain Extremities: Yes: Other (eczema both hands) Neurological: Yes: joint setter II-XII NML intact, Fully Oriented, Alert, Motor Strength 5/5 Integumentary: Yes: Dry Lymphatic: Yes: Within Normal Limits - Diagnostic (1) Alcohol dependence with uncomplicated withdrawal Current Visit: No Status: Chronic (2) Asthma Current Visit: No Status: Chronic (3) Cocaine dependence, uncomplicated Current Visit: No Status: Chronic (4) Eczema of both hands Current Visit: No Status: Chronic (5) Nicotine dependence Current Visit: No Status: Chronic Qualifiers: Cleared for Admission [facility] - Detox or Rehab [facility] Level of Care: Medically Managed Detox Regimen/Protocol: Librium [facility] Breath Alcohol Content Breath Alcohol Content: 0.71 Urine Pregancy Test - Result Urine Test Results: Negative- NO Line Present Urine Drug Screen - Results Drug Screen Negative: No Urine Drug Screen Results: FLOWER-Cocaine, BZO-Benzodiazepines
[2018-06-24] MEDS ORDERED: MAG HYDROX/AL HYDROX/SIMETH 30 ML UNIT-DOSE CUP PO PRN (09:39)
[2018-06-24] MEDS ORDERED: guaiFENesin/D-METHORPHAN HB 10 ML UNIT-DOSE CUPS PO PRN (09:39)
[2018-06-24] MEDS ORDERED: ACETAMINOPHEN 325 MG TABLET (FP) PO PRN (09:39)
[2018-06-24] MEDS ORDERED: MAGNESIUM CITRATE 300 ML BOTTLE PO PRN (09:39)
[2018-06-24] MEDS ORDERED: hydrOXYzine PAMOATE 25 MG CAPSULE (FP) PO PRN (09:39)
[2018-06-24] MEDS ORDERED: chlordiazePOXIDE HCL 25 MG CAPSULE PO PRN (09:39)
[2018-06-24] MEDS ORDERED: MENTHOL/PHENOL 1 EACH UD MM PRN (09:39)
[2018-06-24] MEDS ORDERED: LOPERAMIDE HCL 2 MG CAPSULE PO PRN (09:39)
[2018-06-24] MEDS ORDERED: MAGNESIUM HYDROX 2400MG/30ML ORAL SUSPENSION 30 ML CUP PO PRN (09:39)
[2018-06-24] MEDS ORDERED: P-EPHED 60MG/TRIPROLIDI 2.5MG TABLET PO PRN (09:39)
[2018-06-24] MEDS ORDERED: ALBUTEROL SO4 8 GM HFA INHALER IH PRN (09:41)
[2018-06-24] MEDS: PRENATAL VITAMINS W/ FOLIC ACID TABLET (FP) PO SCH (12:36)
[2018-06-24] MEDS: NICOTINE 14 MG/24 HOURS TOPICAL PATCH TD SCH (12:36)
[2018-06-24] MEDS: chlordiazePOXIDE HCL 25 MG CAPSULE PO SCH ×3 (12:36→22:36)
[2018-06-24] MEDS: HYDROCORTISONE 0.5% TOPICAL CREAM 30 GM TUBE TP SCH ×2 (12:38→22:36)
--- NOTE | 2018-06-24 13:15 | EKG ---
Test Reason : Blood Pressure : / mmHG Vent. Rate : 077 BPM Atrial Rate : 077 BPM P-R Int : 158 ms QRS Dur : 088 ms QT Int : 384 ms P-R-T Axes : 056 050 050 degrees QTc Int : 434 ms NORMAL SINUS RHYTHM NORMAL ECG WHEN COMPARED WITH ECG OF 18-MAY-2018 11:08, NO SIGNIFICANT CHANGE WAS FOUND Confirmed by SHERLYN POWELL MD ([id number]) on 06/24/2018 1:15:11 PM Referred By: Confirmed By:SHERLYN POWELL MD
[2018-06-24 17:18] LABS: URINE APPEARANCE CLEAR; URINE BILIRUBIN NEGATIVE (<2.0 mg/dL); URINE COLOR LTYELLOW; URINE GLUCOSE (UA) NEGATIVE (NEGATIVE); URINE KETONE TRACE (NEGATIVE); URINE LEUK ESTERASE NEGATIVE (NEGATIVE); URINE NITRITE NEGATIVE (NEGATIVE); URINE PROTEIN NEGATIVE (NEGATIVE); URINE UROBILINOGEN NEGATIVE mg/dL (0.2-1.0)
[2018-06-24] MEDS: THIAMINE HCL 100 MG TABLET (FP) PO SCH (22:36)
[2018-06-25] MEDS: chlordiazePOXIDE HCL 25 MG CAPSULE PO SCH ×4 (06:01→22:53)
[2018-06-25 10:11] LABS: HEMATOCRIT 35.6 % (32.4-45.2); HEMOGLOBIN 11.5 GM/dL (10.7-15.3); MCH 32.1 pg (25.7-33.7); MCHC 32.3 g/dl (32.0-36.0); MEAN CELL VOLUME 99.5 fl (80-96); MEAN PLT VOLUME 10.7 fl (7.5-11.1); PLATELET COUNT 175 K/MM3 (134-434); RBC 3.58 M/mm3 (3.60-5.2); RDW 14.8 % (11.6-15.6); WHITE BLOOD COUNT 6.5 K/mm3 (4.0-10.0)
[2018-06-25] MEDS: PRENATAL VITAMINS W/ FOLIC ACID TABLET (FP) PO SCH (10:21)
[2018-06-25] MEDS: NICOTINE 14 MG/24 HOURS TOPICAL PATCH TD SCH (10:22)
[2018-06-25] MEDS: HYDROCORTISONE 0.5% TOPICAL CREAM 30 GM TUBE TP SCH ×2 (10:22→22:53)
[2018-06-25 10:45] LABS: ALK PHOS 43 U/L (45-117); ANION GAP 10 MMOL/L (8-16); BILIRUBIN,TOTAL 0.2 mg/dL (0.2-1); BLOOD UREA NITROGEN 12 mg/dL (7-18); CALCIUM 8.7 mg/dL (8.5-10.1); CHLORIDE 106 mmol/L (98-107); CO2 25 mmol/L (21-32); CREATININE 0.9 mg/dL (0.55-1.3); GLUCOSE,RANDOM 76 mg/dL (74-106); SGOT/AST 22 U/L (15-37); SGPT/ALT 16 U/L (13-61); SODIUM 141 mmol/L (136-145); TOT PROT 7.2 g/dl (6.4-8.2)
--- NOTE | 2018-06-25 12:19 | PN ---
S CIWA - CIWA Score Nausea/Vomitin-No Nausea/No Vomiting Muscle Tremors: 4-Moderate,w/Arms Extend Anxiety: 3 Agitation: 4-Moderately Restless Paroxysmal Sweats: 3 Orientation: 0-Oriented Tacttile Disturbances: 0-None Auditory Disturbances: 0-None Visual Disturbances: 0-None Headache: 0-None Present CIWA-Ar Total Score: 14 BHS Progress Note (SOAP) Subjective: shakes sweats interrupted sleep body aches agitation Objective: 06/25/18 12:18 Vital Signs Temperature 98.2 F 06/25/18 09:57 Pulse Rate 87 06/25/18 09:57 Respiratory Rate 18 06/25/18 09:57 Blood Pressure 144/95 06/25/18 09:57 O2 Sat by Pulse Oximetry (%) Laboratory Tests 06/24/18 06/25/18 06/25/18 15:48 06:00 06:00 WBC 6.5 RBC 3.58 L Hgb 11.5 Hct 35.6 MCV 99.5 H MCH 32.1 MCHC 32.3 RDW 14.8 Plt Count 175 MPV 10.7 Sodium 141 Potassium 4.0 Chloride 106 Carbon Dioxide 25 Anion Gap 10 BUN 12 Creatinine 0.9 Creat Clearance w eGFR > 60 Random Glucose 76 Calcium 8.7 Total Bilirubin 0.2 AST 22 ALT 16 Alkaline Phosphatase 43 L Total Protein 7.2 Albumin 4.0 Urine Color Ltyellow Urine Appearance Clear Urine pH 5.0 Ur Specific [place] 1.011 Urine Protein Negative Urine Glucose (UA) Negative Urine Ketones Trace H Urine Blood Negative Urine Nitrite Negative Urine Bilirubin Negative Urine Urobilinogen Negative Ur Leukocyte Esterase Negative RPR Titer 06/25/18 06:00 WBC RBC Hgb Hct MCV MCH MCHC RDW Plt Count MPV Sodium Potassium Chloride Carbon Dioxide Anion Gap BUN Creatinine Creat Clearance w eGFR Random Glucose Calcium Total Bilirubin AST ALT Alkaline Phosphatase Total Protein Albumin Urine Color Urine Appearance Urine pH Ur Specific [place] Urine Protein Urine Glucose (UA) Urine Ketones Urine Blood Urine Nitrite Urine Bilirubin Urine Urobilinogen Ur Leukocyte Esterase RPR Titer Nonreactive aaox3 ambulating no acute distress Assessment: 06/25/18 12:19 withdrawal sx Plan: continue detox increase fluids
[2018-06-25] MEDS: THIAMINE HCL 100 MG TABLET (FP) PO SCH (22:53)
[2018-06-25] MEDS: MELATONIN 5 MG TABLETS PO PRN (22:53)
[2018-06-26] MEDS: chlordiazePOXIDE HCL 25 MG CAPSULE PO SCH (05:58)
[2018-06-26] MEDS: chlordiazePOXIDE 5 MG CAPSULE PO SCH ×3 (10:37→22:20)
[2018-06-26] MEDS: PRENATAL VITAMINS W/ FOLIC ACID TABLET (FP) PO SCH (10:37)
[2018-06-26] MEDS: HYDROCORTISONE 0.5% TOPICAL CREAM 30 GM TUBE TP SCH ×2 (10:37→22:20)
[2018-06-26] MEDS: NICOTINE 14 MG/24 HOURS TOPICAL PATCH TD SCH (10:37)
[2018-06-26] MEDS: IBUPROFEN 400 MG TABLET (FP) PO PRN ×2 (11:50→22:43)
--- NOTE | 2018-06-26 15:22 | PN ---
[facility] CIWA - CIWA Score Nausea/Vomitin-No Nausea/No Vomiting Muscle Tremors: None Anxiety: 4-Mod. Anxious/Guarded Agitation: 3 Paroxysmal Sweats: No Perspiration Orientation: 0-Oriented Tacttile Disturbances: 0-None Auditory Disturbances: 0-None Visual Disturbances: 0-None Headache: 0-None Present CIWA-Ar Total Score: 7 BHS Progress Note (SOAP) Subjective: PATIENT ANXIOUS AND IRRITABLE, C/O INTERRUPTED SLEEP. Objective: 06/26/18 15:20 Laboratory Tests 06/24/18 06/25/18 06/25/18 15:48 06:00 06:00 WBC 6.5 RBC 3.58 L Hgb 11.5 Hct 35.6 MCV 99.5 H MCH 32.1 MCHC 32.3 RDW 14.8 Plt Count 175 MPV 10.7 Sodium 141 Potassium 4.0 Chloride 106 Carbon Dioxide 25 Anion Gap 10 BUN 12 Creatinine 0.9 Creat Clearance w eGFR > 60 Random Glucose 76 Calcium 8.7 Total Bilirubin 0.2 AST 22 ALT 16 Alkaline Phosphatase 43 L Total Protein 7.2 Albumin 4.0 Urine Color Ltyellow Urine Appearance Clear Urine pH 5.0 Ur Specific [place] 1.011 Urine Protein Negative Urine Glucose (UA) Negative Urine Ketones Trace H Urine Blood Negative Urine Nitrite Negative Urine Bilirubin Negative Urine Urobilinogen Negative Ur Leukocyte Esterase Negative RPR Titer 06/25/18 06:00 WBC RBC Hgb Hct MCV MCH MCHC RDW Plt Count MPV Sodium Potassium Chloride Carbon Dioxide Anion Gap BUN Creatinine Creat Clearance w eGFR Random Glucose Calcium Total Bilirubin AST ALT Alkaline Phosphatase Total Protein Albumin Urine Color Urine Appearance Urine pH Ur Specific [place] Urine Protein Urine Glucose (UA) Urine Ketones Urine Blood Urine Nitrite Urine Bilirubin Urine Urobilinogen Ur Leukocyte Esterase RPR Titer Nonreactive PE: ALERT AND ORIENTED X 3 SKIN WARM AND DRY ANXIOUS AND IRRITABLE PATIENT DID NOT WANT TO SPEAK TO FACILITY SUPERVISOR Assessment: 06/26/18 15:21 WITHDRAWAL SX Plan: CONTINUE DETOX ENCOURAGE ORAL FLUIDS CONTINUE TO MONITOR CLINICALLY
[2018-06-26] MEDS: THIAMINE HCL 100 MG TABLET (FP) PO SCH (22:19)
[2018-06-26] MEDS: MELATONIN 5 MG TABLETS PO PRN (22:20)
[2018-06-27] MEDS: chlordiazePOXIDE 5 MG CAPSULE PO SCH (06:05)
[2018-06-27] MEDS: PRENATAL VITAMINS W/ FOLIC ACID TABLET (FP) PO SCH (10:24)
[2018-06-27] MEDS: chlordiazePOXIDE HCL 10 MG CAPSULE PO SCH ×3 (10:25→22:20)
[2018-06-27] MEDS: NICOTINE 14 MG/24 HOURS TOPICAL PATCH TD SCH (10:26)
[2018-06-27] MEDS: HYDROCORTISONE 0.5% TOPICAL CREAM 30 GM TUBE TP SCH ×2 (10:26→22:19)
--- NOTE | 2018-06-27 14:33 | PN ---
BHS Progress Note (SOAP) Subjective: feeling better no tremor less sweat no gi distress social with peers in day room Objective: 06/27/18 14:32 Vital Signs Temperature 97.9 F 06/27/18 14:21 Pulse Rate 94 H 06/27/18 14:21 Respiratory Rate 16 06/27/18 14:21 Blood Pressure 126/85 06/27/18 14:21 O2 Sat by Pulse Oximetry (%) Laboratory Last Values WBC 6.5 K/mm3 (4.0-10.0) 06/25/18 06:00 RBC 3.58 M/mm3 (3.60-5.2) L 06/25/18 06:00 Hgb 11.5 GM/dL (10.7-15.3) 06/25/18 06:00 Hct 35.6 % (32.4-45.2) 06/25/18 06:00 MCV 99.5 fl (80-96) H 06/25/18 06:00 MCH 32.1 pg (25.7-33.7) 06/25/18 06:00 MCHC 32.3 g/dl (32.0-36.0) 06/25/18 06:00 RDW 14.8 % (11.6-15.6) 06/25/18 06:00 Plt Count 175 K/MM3 (134-434) 06/25/18 06:00 MPV 10.7 fl (7.5-11.1) 06/25/18 06:00 Sodium 141 mmol/L (136-145) 06/25/18 06:00 Potassium 4.0 mmol/L (3.5-5.1) 06/25/18 06:00 Chloride 106 mmol/L (98-107) 06/25/18 06:00 Carbon Dioxide 25 mmol/L (21-32) 06/25/18 06:00 Anion Gap 10 MMOL/L (8-16) 06/25/18 06:00 BUN 12 mg/dL (7-18) 06/25/18 06:00 Creatinine 0.9 mg/dL (0.55-1.3) 06/25/18 06:00 Creat Clearance w eGFR > 60 (>60) 06/25/18 06:00 Random Glucose 76 mg/dL (74-106) 06/25/18 06:00 Calcium 8.7 mg/dL (8.5-10.1) 06/25/18 06:00 Total Bilirubin 0.2 mg/dL (0.2-1) 06/25/18 06:00 AST 22 U/L (15-37) 06/25/18 06:00 ALT 16 U/L (13-61) 06/25/18 06:00 Alkaline Phosphatase 43 U/L (45-117) L 06/25/18 06:00 Total Protein 7.2 g/dl (6.4-8.2) 06/25/18 06:00 Albumin 4.0 g/dl (3.4-5.0) 06/25/18 06:00 Urine Color Ltyellow 06/24/18 15:48 Urine Appearance Clear 06/24/18 15:48 Urine pH 5.0 (5.0-8.0) 06/24/18 15:48 Ur Specific [place] 1.011 (1.010-1.035) 06/24/18 15:48 Urine Protein Negative (NEGATIVE) 06/24/18 15:48 Urine Glucose (UA) Negative (NEGATIVE) 06/24/18 15:48 Urine Ketones Trace (NEGATIVE) H 06/24/18 15:48 Urine Blood Negative (NEGATIVE) 06/24/18 15:48 Urine Nitrite Negative (NEGATIVE) 06/24/18 15:48 Urine Bilirubin Negative (<2.0 mg/dL) 06/24/18 15:48 Urine Urobilinogen Negative mg/dL (0.2-1.0) 06/24/18 15:48 Ur Leukocyte Esterase Negative (NEGATIVE) 06/24/18 15:48 RPR Titer Nonreactive (NONREACTIVE) 06/25/18 06:00 lab noted Assessment: mild withdrawal sx Plan: medically supervised detox
[2018-06-27] MEDS: THIAMINE HCL 100 MG TABLET (FP) PO SCH (22:19)
[2018-06-27] MEDS: IBUPROFEN 400 MG TABLET (FP) PO PRN (22:19)
[2018-06-27] MEDS: MELATONIN 5 MG TABLETS PO PRN (22:20)
[2018-06-28] MEDS: chlordiazePOXIDE HCL 10 MG CAPSULE PO SCH (05:30)
--- NOTE | 2018-06-28 08:45 | DS ---
[facility] Detox Discharge Summary Admission Date: 06/24/18 Discharge Date: 06/28/18 - History Present History: Alcohol Dependence, Cocaine Dependence - Physical Exam Results Vital Signs: Vital Signs Temperature 97.9 F 06/28/18 07:37 Pulse Rate 83 06/28/18 07:37 Respiratory Rate 18 06/28/18 07:37 Blood Pressure 109/67 06/28/18 07:37 O2 Sat by Pulse Oximetry (%) - Treatment Hospital Course: Detox Protocol Followed, Detoxed Safely, Responded well, Discharged Condition Good, Rehab Referral Accepted - Medication Discharge Medications: Ambulatory Orders Hydrocortisone 0.5% Cream [Hytone 0.5% Cream -] 1 applic TP BID #1 tube Albuterol Sulfate Inhaler - [Ventolin HFA Inhaler -] 2 inh PO Q4H PRN #1 inhaler 06/27/18 - Diagnosis (1) Alcohol dependence with uncomplicated withdrawal Current Visit: Yes Status: Chronic (2) Anxiety and depression Current Visit: No Status: Acute (3) Cocaine dependence Current Visit: Yes Status: Chronic Qualifiers: Substance use status: uncomplicated Qualified Code(s): F14.20 - Cocaine dependence, uncomplicated (4) Dentalgia Current Visit: No Status: Acute (5) History of anemia Current Visit: No Status: Acute (6) Syncope Current Visit: No Status: Acute (7) Asthma Current Visit: Yes Status: Chronic Qualifiers: Asthma severity: mild Asthma complication type: unspecified (8) Cocaine dependence, uncomplicated Current Visit: Yes Status: Chronic (9) Depression (emotion) Current Visit: No Status: Chronic Qualifiers: Depression Type: unspecified Qualified Code(s): F32.9 - Major depressive disorder, single episode, unspecified (10) Eczema of both hands Current Visit: No Status: Chronic (11) GERD (gastroesophageal reflux disease) Current Visit: Yes Status: Chronic Qualifiers: Esophagitis presence: without esophagitis (12) Nicotine dependence Current Visit: Yes Status: Chronic Qualifiers: Nicotine product type: cigarettes Substance use status: uncomplicated Qualified Code(s): F17.210 - Nicotine dependence, cigarettes, uncomplicated (13) Drug-induced mood disorder Current Visit: No Status: Suspected - AMA Did Patient Leave Against Medical Advice: No (out patient new focus)
[2018-06-28 09:48] VITALS: BP 126/73; PULSE 94; TEMP 97.3
[2018-06-28] MEDS: NICOTINE 14 MG/24 HOURS TOPICAL PATCH TD SCH (11:15)
[2018-06-28] MEDS: PRENATAL VITAMINS W/ FOLIC ACID TABLET (FP) PO SCH (11:15)
[2018-06-28] MEDS: HYDROCORTISONE 0.5% TOPICAL CREAM 30 GM TUBE TP SCH (11:15)
== END 2018-06-28 08:59 | disposition home or self-care (01) | DRG 774 ==
LOC: YASAS 08:31 → Y6N 09:44
PROC: HZ2ZZZZ Detoxification Services for Substance Abuse Treatment (ICD-10-PCS; principal; 2018-06-24)
DX: F10.230 Alcohol dependence with withdrawal, uncomplicated (principal); F14.20 Cocaine dependence, uncomplicated; F17.210 Nicotine dependence, cigarettes, uncomplicated; F19.24 Other psychoactive substance dependence with psychoactive substance-induced mood disorder; F34.1 Dysthymic disorder; F41.8 Other specified anxiety disorders; J45.20 Mild intermittent asthma, uncomplicated; L30.9 Dermatitis, unspecified; K21.9 Gastro-esophageal reflux disease without esophagitis; K08.89 Other specified disorders of teeth and supporting structures; R55 Syncope and collapse; Z59.0 Homelessness
CPT/HCPCS: 36415; 80053; 81003; 85027; 86593; 93005; 93010

== ENCOUNTER 2018-07-29 09:05 | Inpatient (IN) | payer OTHER ==
[2018-07-29 09:22] VITALS: BMI 29.5
--- NOTE | 2018-07-29 09:47 | HP ---
CIWA Score Nausea/Vomitin Muscle Tremors: 2 Anxiety: 2 Agitation: 2 Paroxysmal Sweats: 1-Minimal Palms Moist Orientation: 0-Oriented Tacttile Disturbances: 1-Very Mild Itch/Numbness Auditory Disturbances: 1-Very Mild Visual Disturbances: 0-None Headache: 2-Mild CIWA-Ar Total Score: 13 - Admission Criteria OASAS Guidelines: Admission for Medically Managed Detox: Requires at least one of the followin. CIWA greater than 12 2. Seizures within the past 24 hours 3. Delirium tremens within the past 24 hours 4. Hallucinations within the past 24 hours 5. Acute intervention needed for co occurring medical disorder 6. Acute intervention needed for co occurring psychiatric disorder 7. Severe withdrawal that cannot be handled at a lower level of care (continued vomiting, continued diarrhea, abnormal vital signs) requiring intravenous medication and/or fluids 8. Patient presents the following: CIWA greater than 12 Admission Criteria Met: Admission criteria met Admission ROS [facility] Chief Complaint: i am here for alcohol,and cocaine Allergies/Adverse Reactions: Allergies Allergy/AdvReac Type Severity Reaction Status Date / Time shrimp Allergy Severe Hives Verified 07/29/18 10:18 No Known Drug Allergies Allergy Unknown Verified 07/29/18 11:02 NKDA Allergy Uncoded 07/29/18 10:18 History of Present Illness: this 42 years old with alcohol and cocaine dependence,seeking alcohol, withdrawal symptom,multiple admissions in detox, last [facility] 05/24/18 to 06/28/18 syncope nicotine dependence history of asthma longest sobriety 3 years plan for rehab - Ebola screening Have you traveled outside of the country in the last 21 days: No Have you had contact with anyone from an Ebola affected area: No Have you been sick,other than usual withdrawal symptoms: No - Review of Systems Constitutional: Malaise, Night Sweats, Changes in sleep, Weakness EENT: reports: Nose Congestion Respiratory: reports: No Symptoms reported, Other (asthma) Cardiac: reports: No Symptoms Reported GI: reports: Nausea, Poor Appetite, Abdominal cramping : reports: No Symptoms Reported Musculoskeletal: reports: Back Pain, Muscle Pain Integumentary: reports: Dryness Neuro: reports: Headache, Tremors Endocrine: reports: No Symptoms Reported Hematology: reports: No Symptoms Reported Psychiatric: reports: No Sypmtoms Reported, Judgement Intact, Mood/Affect Appropiate, Orientated x3 Patient History - Patient Medical History Hx Anemia: No Hx Asthma: Yes (on albuterol inhaler) Hx Chronic Obstructive Pulmonary Disease (COPD): No Hx Cancer: No Hx Cardiac Disorders: No Hx Congestive Heart Failure: No Hx Hypertension: No Hx Hypercholesterolemia: No Hx Pacemaker: No HX Cerebrovascular Accident: No Hx Seizures: No Hx Dementia: No Hx Diabetes: No Hx Gastrointestinal Disorders: No Hx Liver Disease: No Hx Genitourinary Disorders: No Hx Sexually Transmitted Disorders: No Hx Renal Disease (ESRD): No Hx Thyroid Disease: No Hx Human Immunodeficiency Virus (HIV): No (last 04/03 negative) Hx Hepatitis C: No Hx Depression: No Hx Suicide Attempt: No Hx Bipolar Disorder: No Hx Schizophrenia: No Other Medical History: no suicidal,no homicidal - Patient Surgical History Past Surgical History: No Hx Neurologic Surgery: No Hx Cataract Extraction: No Hx Cardiac Surgery: No Hx Lung Surgery: No Hx Breast Surgery: No Hx Breast Biopsy: No Hx Abdominal Surgery: No Hx Appendectomy: No Hx Cholecystectomy: No Hx Genitourinary Surgery: No Hx Section: Yes (18 YEARS AGO) Hx Orthopedic Surgery: No Hx Hysterectomy: No Anesthesia Reaction: No - PPD History Previous Implant?: Yes Documented Results: Negative w/o proof Date: 05/20/18 Results: 0 mm PPD to be Administered?: No - Reproductive History Patient is a Female of Child Bearing Age (11 -55 yrs old): Yes Last Menstrual Period: 06/30/18 Patient : No - Smoking Cessation Smoking history: Current every day smoker Have you smoked in the past 12 months: Yes Aproximately how many cigarettes per day: 5 Cigars Per Day: 0 Hx Chewing Tobacco Use: No Initiated information on smoking cessation: Yes 'Breaking Loose' booklet given: 07/29/18 - Substance & Tx. History Hx Alcohol Use: Yes Hx Substance Use: Yes Substance Use Type: Alcohol, Cocaine Hx Substance Use Treatment: Yes ([facility]06/24/12 to06/28/18) - Substances Abused Alcohol Route: Oral Frequency: Daily Amount used: 1/2pint of vodka/6 pack of 24 ozs of beer Age of first use: 12 Date of Last Use: 07/28/18 Cocaine Route: Smoking Frequency: Daily Amount used: 50$ Age of first use: 23 Date of Last Use: 07/28/18 Family Disease History - Family Disease History Family Disease History: Heart Disease: Grandparent, Respiratory: Grandparent, Other: Father (alcohol,), Mother (alcohol,sober) Admission Physical Exam [facility] - Vital Signs Vital Signs: Vital Signs - 24 hr 07/29/18 09:18 Temperature 97.2 F L Pulse Rate 68 Respiratory 20 Rate Blood Pressure 136/96 - Physical General Appearance: Yes: Moderate Distress, Tremorous, Irritable, Anxious HEENTM: Yes: Normal ENT Inspection, GRECIA, Pharynx Normal Respiratory: Yes: Lungs Clear, Normal Breath Sounds, No Respiratory Distress Neck: Yes: Within Normal Limits, Supple, Trachea in good position Breast: Yes: Breast Exam Deferred Cardiology: Yes: Within Normal Limits, Regular Rhythm, Regular Rate, S1, S2 Abdominal: Yes: Within Normal Limits, Normal Bowel Sounds, Non Tender, Soft Genitourinary: Yes: Within Normal Limits Back: Yes: Muscle Spasm Musculoskeletal: Yes: Back pain, Muscle Pain Extremities: Yes: Tremors Neurological: Yes: Within Normal Limits, 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 intact, Fully Oriented, Alert, Motor Strength 5/5 Integumentary: Yes: Dry Lymphatic: Yes: Within Normal Limits - Diagnostic (1) Alcohol dependence with uncomplicated withdrawal Current Visit: Yes Status: Chronic (2) Syncope Current Visit: No Status: Acute (3) Asthma Current Visit: No Status: Chronic Qualifiers: Asthma severity: mild Asthma complication type: unspecified (4) Cocaine dependence Current Visit: No Status: Chronic Qualifiers: Substance use status: uncomplicated Qualified Code(s): F14.20 - Cocaine dependence, uncomplicated (5) GERD (gastroesophageal reflux disease) Current Visit: Yes Status: Chronic Qualifiers: Esophagitis presence: without esophagitis Qualified Code(s): K21.9 - Gastro -esophageal reflux disease without esophagitis (6) Nicotine dependence Current Visit: No Status: Chronic Qualifiers: Nicotine product type: cigarettes Substance use status: uncomplicated Qualified Code(s): F17.210 - Nicotine dependence, cigarettes, uncomplicated Cleared for Admission S - Detox or Rehab [facility] Level of Care: Medically Managed Detox Regimen/Protocol: Librium S Breath Alcohol Content Breath Alcohol Content: 0 Urine Pregancy Test - Result Urine Test Results: Negative- NO Line Present Urine Drug Screen - Results Drug Screen Negative: No Urine Drug Screen Results: FLOWER-Cocaine, BZO-Benzodiazepines
[2018-07-29] MEDS ORDERED: MAG HYDROX/AL HYDROX/SIMETH 30 ML UNIT-DOSE CUP PO PRN (11:36)
[2018-07-29] MEDS ORDERED: guaiFENesin/D-METHORPHAN HB 10 ML UNIT-DOSE CUPS PO PRN (11:36)
[2018-07-29] MEDS ORDERED: LOPERAMIDE HCL 2 MG CAPSULE PO PRN (11:36)
[2018-07-29] MEDS ORDERED: MAGNESIUM CITRATE 300 ML BOTTLE PO PRN (11:36)
[2018-07-29] MEDS ORDERED: chlordiazePOXIDE HCL 25 MG CAPSULE PO PRN (11:36)
[2018-07-29] MEDS ORDERED: ACETAMINOPHEN 325 MG TABLET (FP) PO PRN (11:36)
[2018-07-29] MEDS ORDERED: IBUPROFEN 400 MG TABLET (FP) PO PRN (11:36)
[2018-07-29] MEDS ORDERED: P-EPHED 60MG/TRIPROLIDI 2.5MG TABLET PO PRN (11:36)
[2018-07-29] MEDS ORDERED: MENTHOL/PHENOL 1 EACH UD MM PRN (11:36)
[2018-07-29] MEDS ORDERED: MAGNESIUM HYDROX 2400MG/30ML ORAL SUSPENSION 30 ML CUP PO PRN (11:36)
[2018-07-29] MEDS ORDERED: ALBUTEROL SO4 8 GM HFA INHALER IH PRN (11:38)
[2018-07-29] MEDS: chlordiazePOXIDE HCL 25 MG CAPSULE PO SCH ×3 (11:59→22:17)
[2018-07-29] MEDS ORDERED: MELATONIN 5 MG TABLETS PO PRN (22:00)
[2018-07-29] MEDS: HYDROCORTISONE 0.5% TOPICAL CREAM 30 GM TUBE TP SCH (22:16)
[2018-07-29] MEDS: THIAMINE HCL 100 MG TABLET (FP) PO SCH (22:16)
[2018-07-30] MEDS: chlordiazePOXIDE HCL 25 MG CAPSULE PO SCH ×4 (06:00→22:39)
[2018-07-30 10:32] LABS: HEMATOCRIT 34.8 % (32.4-45.2); MCH 34.4 pg (25.7-33.7); MCHC 34.6 g/dl (32.0-36.0); MEAN CELL VOLUME 99.4 fl (80-96); MEAN PLT VOLUME 10.5 fl (7.5-11.1); PLATELET COUNT 176 K/MM3 (134-434); RDW 15.4 % (11.6-15.6); WHITE BLOOD COUNT 4.4 K/mm3 (4.0-10.0)
[2018-07-30] MEDS: PRENATAL VITAMINS W/ FOLIC ACID TABLET (FP) PO SCH (10:39)
[2018-07-30] MEDS: HYDROCORTISONE 0.5% TOPICAL CREAM 30 GM TUBE TP SCH ×2 (10:40→22:39)
[2018-07-30 11:01] LABS: ALK PHOS 37 U/L (45-117); ANION GAP 7 MMOL/L (8-16); BILIRUBIN,TOTAL 0.4 mg/dL (0.2-1); BLOOD UREA NITROGEN 16 mg/dL (7-18); CALCIUM 8.2 mg/dL (8.5-10.1); CHLORIDE 109 mmol/L (98-107); CO2 25 mmol/L (21-32); CREATININE 0.9 mg/dL (0.55-1.3); GLUCOSE,RANDOM 92 mg/dL (74-106); POTASSIUM 4.1 mmol/L (3.5-5.1); SGOT/AST 16 U/L (15-37); SGPT/ALT 13 U/L (13-61); SODIUM 141 mmol/L (136-145); TOT PROT 5.9 g/dl (6.4-8.2)
--- NOTE | 2018-07-30 11:46 | PN ---
[facility] CIWA - CIWA Score Nausea/Vomitin-Mild Nausea/No Vomiting Muscle Tremors: 2 Anxiety: 2 Agitation: 2 Paroxysmal Sweats: 3 Orientation: 0-Oriented Tacttile Disturbances: 2-Mild Itch/Numbness/Burn Auditory Disturbances: 0-None Visual Disturbances: 0-None Headache: 0-None Present CIWA-Ar Total Score: 12 S Progress Note (SOAP) Subjective: interrupted sleep, sweats, dez knee pain Objective: 07/30/18 11:45 Vital Signs Temperature 98.2 F 07/30/18 09:54 Pulse Rate 78 07/30/18 09:54 Respiratory Rate 18 07/30/18 09:54 Blood Pressure 104/95 07/30/18 09:54 O2 Sat by Pulse Oximetry (%) Laboratory Tests 07/30/18 07/30/18 07:00 07:00 WBC 4.4 RBC 3.50 L Hgb 12.0 Hct 34.8 MCV 99.4 H MCH 34.4 H MCHC 34.6 RDW 15.4 Plt Count 176 MPV 10.5 Sodium 141 Potassium 4.1 Chloride 109 H Carbon Dioxide 25 Anion Gap 7 L BUN 16 Creatinine 0.9 Creat Clearance w eGFR > 60 Random Glucose 92 Calcium 8.2 L Total Bilirubin 0.4 AST 16 ALT 13 Alkaline Phosphatase 37 L Total Protein 5.9 L Albumin 3.0 L pt aox3 in nad lying in bed Assessment: 07/30/18 11:45 withdrawal sx's dez knee pain Plan: cont. detox incrase fluids motrin prn
[2018-07-30] MEDS ORDERED: FLU VACCINE QUAD 60 MCG/0.5 ML (MDV 18-19) IM ONE (12:00)
[2018-07-30] MEDS ORDERED: BENZOCAINE 20 % GEL TUBE MM PRN (21:11)
[2018-07-30] MEDS ORDERED: IBUPROFEN 400 MG TABLET (FP) PO PRN (21:12)
--- NOTE | 2018-07-30 21:22 | PN ---
[facility] Progress Note (SOAP) Subjective: C/o (R) sided upper toothache Objective: Tenderness of gum underneath bridge at (R) upper gum line. No swelling or increased erythema at site. Bridge w/ smooth edges. Vital Signs 07/30/18 07/30/18 14:27 18:33 Temperature 97.9 F 98.2 F Pulse Rate 82 84 Respiratory 18 16 Rate Blood Pressure 134/70 132/93 Assessment: toothache Plan: Increase ibuprofen to 600 mg Q6H Orajel Q6H prn. Use reviewed w/ patient. Continue detox
[2018-07-30] MEDS: THIAMINE HCL 100 MG TABLET (FP) PO SCH (22:38)
[2018-07-30] MEDS: hydrOXYzine PAMOATE 50 MG CAPSULE (FP) PO PRN (22:38)
[2018-07-31] MEDS: chlordiazePOXIDE HCL 25 MG CAPSULE PO SCH (05:59)
[2018-07-31] MEDS: chlordiazePOXIDE 5 MG CAPSULE PO SCH ×3 (10:35→22:23)
[2018-07-31] MEDS: PRENATAL VITAMINS W/ FOLIC ACID TABLET (FP) PO SCH (10:35)
[2018-07-31] MEDS: HYDROCORTISONE 0.5% TOPICAL CREAM 30 GM TUBE TP SCH ×2 (10:36→22:23)
--- NOTE | 2018-07-31 14:15 | PN ---
S CIWA - CIWA Score Nausea/Vomitin-Mild Nausea/No Vomiting Muscle Tremors: 1-None Visible, but Floris Anxiety: 1-Mildly Anxious Agitation: 0-Normal Activity Paroxysmal Sweats: 1-Minimal Palms Moist Orientation: 0-Oriented Tacttile Disturbances: 0-None Auditory Disturbances: 0-None Visual Disturbances: 0-None Headache: 0-None Present CIWA-Ar Total Score: 4 [facility] Progress Note (SOAP) Subjective: pt without complaints, day #3 of alcohol detox O: Vital Signs - 24 hr 07/30/18 07/30/18 07/30/18 14:27 18:33 22:07 Temperature 97.9 F 98.2 F 98.6 F Pulse Rate 82 84 98 H Respiratory 18 16 18 Rate Blood Pressure 134/70 132/93 152/86 07/31/18 07/31/18 07/31/18 00:30 03:30 06:52 Temperature Pulse Rate 72 Respiratory 18 16 18 Rate Blood Pressure 140/80 07/31/18 09:45 Temperature 97.4 F L Pulse Rate 85 Respiratory 16 Rate Blood Pressure 131/83 Laboratory Tests 07/30/18 07/30/18 07/30/18 07:00 07:00 07:00 WBC 4.4 RBC 3.50 L Hgb 12.0 Hct 34.8 MCV 99.4 H MCH 34.4 H MCHC 34.6 RDW 15.4 Plt Count 176 MPV 10.5 Sodium 141 Potassium 4.1 Chloride 109 H Carbon Dioxide 25 Anion Gap 7 L BUN 16 Creatinine 0.9 Creat Clearance w eGFR > 60 Random Glucose 92 Calcium 8.2 L Total Bilirubin 0.4 AST 16 ALT 13 Alkaline Phosphatase 37 L Total Protein 5.9 L Albumin 3.0 L RPR Titer Nonreactive a/p:AUD- pt doing well, continue alcohol detox protocol
[2018-07-31] MEDS: hydrOXYzine PAMOATE 50 MG CAPSULE (FP) PO PRN (22:22)
[2018-07-31] MEDS: THIAMINE HCL 100 MG TABLET (FP) PO SCH (22:23)
[2018-08-01] MEDS: chlordiazePOXIDE 5 MG CAPSULE PO SCH (06:39)
--- NOTE | 2018-08-01 09:37 | PN ---
[facility] Progress Note (SOAP) Subjective: feeling better no tremor no gi distress less sweat tooth ache encourage oral hygiene and dental services Objective: 08/01/18 09:34 Vital Signs Temperature 98.1 F 08/01/18 04:00 Pulse Rate 74 08/01/18 04:00 Respiratory Rate 20 08/01/18 04:00 Blood Pressure 130/91 08/01/18 04:00 O2 Sat by Pulse Oximetry (%) Laboratory Last Values WBC 4.4 K/mm3 (4.0-10.0) 07/30/18 07:00 RBC 3.50 M/mm3 (3.60-5.2) L 07/30/18 07:00 Hgb 12.0 GM/dL (10.7-15.3) 07/30/18 07:00 Hct 34.8 % (32.4-45.2) 07/30/18 07:00 MCV 99.4 fl (80-96) H 07/30/18 07:00 MCH 34.4 pg (25.7-33.7) H 07/30/18 07:00 MCHC 34.6 g/dl (32.0-36.0) 07/30/18 07:00 RDW 15.4 % (11.6-15.6) 07/30/18 07:00 Plt Count 176 K/MM3 (134-434) 07/30/18 07:00 MPV 10.5 fl (7.5-11.1) 07/30/18 07:00 Sodium 141 mmol/L (136-145) 07/30/18 07:00 Potassium 4.1 mmol/L (3.5-5.1) 07/30/18 07:00 Chloride 109 mmol/L (98-107) H 07/30/18 07:00 Carbon Dioxide 25 mmol/L (21-32) 07/30/18 07:00 Anion Gap 7 MMOL/L (8-16) L 07/30/18 07:00 BUN 16 mg/dL (7-18) 07/30/18 07:00 Creatinine 0.9 mg/dL (0.55-1.3) 07/30/18 07:00 Creat Clearance w eGFR > 60 (>60) 07/30/18 07:00 Random Glucose 92 mg/dL (74-106) 07/30/18 07:00 Calcium 8.2 mg/dL (8.5-10.1) L 07/30/18 07:00 Total Bilirubin 0.4 mg/dL (0.2-1) 07/30/18 07:00 AST 16 U/L (15-37) 07/30/18 07:00 ALT 13 U/L (13-61) 07/30/18 07:00 Alkaline Phosphatase 37 U/L (45-117) L 07/30/18 07:00 Total Protein 5.9 g/dl (6.4-8.2) L 07/30/18 07:00 Albumin 3.0 g/dl (3.4-5.0) L 07/30/18 07:00 RPR Titer Nonreactive (NONREACTIVE) 07/30/18 07:00 lab noted Assessment: 08/01/18 09:34 mild alcohol withdrawal sx poor dentition Plan: medically supervised alcohol detox encourage dental services and oral hygiene
[2018-08-01] MEDS: chlordiazePOXIDE HCL 10 MG CAPSULE PO SCH ×3 (10:43→22:49)
[2018-08-01] MEDS: PRENATAL VITAMINS W/ FOLIC ACID TABLET (FP) PO SCH (10:43)
[2018-08-01] MEDS: HYDROCORTISONE 0.5% TOPICAL CREAM 30 GM TUBE TP SCH ×2 (10:46→22:49)
[2018-08-01] MEDS: hydrOXYzine PAMOATE 50 MG CAPSULE (FP) PO PRN (22:49)
[2018-08-01] MEDS: THIAMINE HCL 100 MG TABLET (FP) PO SCH (22:49)
[2018-08-02] MEDS: chlordiazePOXIDE HCL 10 MG CAPSULE PO SCH (05:53)
--- NOTE | 2018-08-02 08:54 | DS ---
[facility] Detox Discharge Summary Admission Date: 07/29/18 Discharge Date: 08/02/18 - History Present History: Alcohol Dependence, Cocaine Dependence - Physical Exam Results Vital Signs: Vital Signs Temperature 97.7 F 08/02/18 06:39 Pulse Rate 74 08/02/18 06:39 Respiratory Rate 18 08/02/18 06:39 Blood Pressure 136/90 08/02/18 06:39 O2 Sat by Pulse Oximetry (%) - Treatment Hospital Course: Detox Protocol Followed, Detoxed Safely, Responded well, Discharged Condition Good, Rehab Referral Accepted - Medication Discharge Medications: Ambulatory Orders Hydrocortisone 0.5% Cream [Hytone 0.5% Cream -] 1 applic TP BID 07/29/18 Albuterol Sulfate Inhaler - [Ventolin HFA Inhaler -] 2 inh PO Q4H PRN #1 inhaler 08/01/18 - Diagnosis (1) Dentalgia Current Visit: Yes Status: Acute (2) Alcohol dependence with uncomplicated withdrawal Current Visit: Yes Status: Chronic (3) Bilateral knee pain Current Visit: Yes Status: Chronic (4) GERD (gastroesophageal reflux disease) Current Visit: Yes Status: Chronic Qualifiers: Esophagitis presence: without esophagitis Qualified Code(s): K21.9 - Gastro -esophageal reflux disease without esophagitis (5) History of anemia Current Visit: Yes Status: Chronic (6) Anxiety and depression Current Visit: No Status: Acute (7) Syncope Current Visit: No Status: Acute (8) Asthma Current Visit: No Status: Chronic Qualifiers: Asthma severity: mild Asthma complication type: unspecified (9) Cocaine dependence Current Visit: No Status: Chronic Qualifiers: Substance use status: uncomplicated Qualified Code(s): F14.20 - Cocaine dependence, uncomplicated (10) Cocaine dependence, uncomplicated Current Visit: No Status: Chronic (11) Depression (emotion) Current Visit: No Status: Chronic Qualifiers: Depression Type: unspecified Qualified Code(s): F32.9 - Major depressive disorder, single episode, unspecified (12) Eczema of both hands Current Visit: No Status: Chronic (13) Nicotine dependence Current Visit: No Status: Chronic Qualifiers: Nicotine product type: cigarettes Substance use status: uncomplicated Qualified Code(s): F17.210 - Nicotine dependence, cigarettes, uncomplicated (14) Drug-induced mood disorder Current Visit: No Status: Suspected - AMA Did Patient Leave Against Medical Advice: No
[2018-08-02 09:01] VITALS: BP 124/73; PULSE 79; TEMP 97.9
== END 2018-08-02 09:05 | disposition home or self-care (01) | DRG 774 ==
LOC: YASAS 09:05 → Y6N 10:50
PROC: HZ2ZZZZ Detoxification Services for Substance Abuse Treatment (ICD-10-PCS; principal; 2018-07-29)
DX: F10.230 Alcohol dependence with withdrawal, uncomplicated (principal); F14.20 Cocaine dependence, uncomplicated; F17.210 Nicotine dependence, cigarettes, uncomplicated; F41.8 Other specified anxiety disorders; F19.24 Other psychoactive substance dependence with psychoactive substance-induced mood disorder; K08.89 Other specified disorders of teeth and supporting structures; M25.561 Pain in right knee; M25.562 Pain in left knee; G89.29 Other chronic pain; J45.909 Unspecified asthma, uncomplicated; L30.9 Dermatitis, unspecified; Z91.013 Allergy to seafood
CPT/HCPCS: 36415; 80053; 85027; 86593; 90688; G0008

== ENCOUNTER 2018-08-28 09:06 | Inpatient (IN) | payer OTHER ==
[2018-08-28 09:37] VITALS: BMI 29.2
--- NOTE | 2018-08-28 12:16 | HP ---
CIWA Score Nausea/Vomitin-Mild Nausea/No Vomiting Muscle Tremors: 3 Anxiety: 4-Mod. Anxious/Guarded Agitation: 0-Normal Activity Paroxysmal Sweats: No Perspiration Orientation: 1-Uncertain about Date Tacttile Disturbances: 0-None Auditory Disturbances: 1-Very Mild Visual Disturbances: 1-Very Mild Sensitivity Headache: 2-Mild CIWA-Ar Total Score: 13 - Admission Criteria OASAS Guidelines: Admission for Medically Managed Detox: Requires at least one of the followin. CIWA greater than 12 2. Seizures within the past 24 hours 3. Delirium tremens within the past 24 hours 4. Hallucinations within the past 24 hours 5. Acute intervention needed for co occurring medical disorder 6. Acute intervention needed for co occurring psychiatric disorder 7. Severe withdrawal that cannot be handled at a lower level of care (continued vomiting, continued diarrhea, abnormal vital signs) requiring intravenous medication and/or fluids 8. Patient presents the following: CIWA greater than 12 Admission Criteria Met: Admission criteria met Admission ROS S - HPI Chief Complaint: I want to stop - my birthday is coming up, I need to do better. Allergies/Adverse Reactions: Allergies Allergy/AdvReac Type Severity Reaction Status Date / Time shrimp Allergy Severe Hives Verified 08/28/18 13:35 No Known Drug Allergies Allergy Unknown Verified 08/28/18 13:35 NKDA Allergy Uncoded 08/28/18 13:35 History of Present Illness: 42 yo woman here for detox from alcohol - also using crack. No seizures but does have black outs. This is one of multiple admissions for treatment - last here 07/29/18 but did not follow up with [facility] after discharge- counseled her need to follow up with rehab after detox. Urine tox + bzo - states must have been in the crack as does not take any benzos. Exam Limitations: Clinical Condition - Ebola screening Have you traveled outside of the country in the last 21 days: No (N) Have you had contact with anyone from an Ebola affected area: No Have you been sick,other than usual withdrawal symptoms: No Do you have a fever: No - Review of Systems Constitutional: Malaise, Changes in sleep, Weakness EENT: reports: No Symptoms Reported Respiratory: reports: No Symptoms reported Cardiac: reports: No Symptoms Reported GI: reports: Nausea, Poor Appetite, Abdominal cramping : reports: Frequency Musculoskeletal: reports: No Symptoms Reported Integumentary: reports: Dryness Neuro: reports: Headache, Tremors Endocrine: reports: No Symptoms Reported Hematology: reports: No Symptoms Reported Psychiatric: reports: Judgement Intact, Mood/Affect Appropiate, Anxious Other Systems: Reviewed and Negative Patient History - Patient Medical History Hx Anemia: No Hx Asthma: Yes (on albuterol inhaler) Hx Chronic Obstructive Pulmonary Disease (COPD): No Hx Cancer: No Hx Cardiac Disorders: No Hx Congestive Heart Failure: No Hx Hypertension: No Hx Hypercholesterolemia: No Hx Pacemaker: No HX Cerebrovascular Accident: No Hx Seizures: No Hx Dementia: No Hx Diabetes: No Hx Gastrointestinal Disorders: No Hx Liver Disease: No Hx Genitourinary Disorders: No Hx Sexually Transmitted Disorders: No Hx Renal Disease (ESRD): No Hx Thyroid Disease: No Hx Human Immunodeficiency Virus (HIV): No (last 04/03 negative) Hx Hepatitis C: No Hx Depression: No (denies) Hx Suicide Attempt: No (denies) Hx Bipolar Disorder: No Hx Schizophrenia: No Other Medical History: eczema - Patient Surgical History Past Surgical History: No Hx Neurologic Surgery: No Hx Cataract Extraction: No Hx Cardiac Surgery: No Hx Lung Surgery: No Hx Breast Surgery: No Hx Breast Biopsy: No Hx Abdominal Surgery: No Hx Appendectomy: No Hx Cholecystectomy: No Hx Genitourinary Surgery: No Hx Section: Yes (18 YEARS AGO) Hx Orthopedic Surgery: No Hx Hysterectomy: No Anesthesia Reaction: No - PPD History Previous Implant?: Yes Documented Results: Negative w/proof Implanted On Prior [facility] Admission?: Yes Date: 05/20/18 Results: 0 mm PPD to be Administered?: Yes - Reproductive History Patient is a Female of Child Bearing Age (11 -55 yrs old): Yes Last Menstrual Period: 06/30/18 - Smoking Cessation Smoking history: Current every day smoker Have you smoked in the past 12 months: Yes Aproximately how many cigarettes per day: 20 Cigars Per Day: 0 Hx Chewing Tobacco Use: No Initiated information on smoking cessation: Yes 'Breaking Loose' booklet given: 08/28/18 (give on floor) - Substance & Tx. History Hx Alcohol Use: Yes Hx Substance Use: Yes Substance Use Type: Cocaine Hx Substance Use Treatment: Yes (detox) - Substances Abused alcohol Route: Oral Frequency: Daily Amount used: 1/5 vodka, six pack 12 oz beer Age of first use: 12 Date of Last Use: 08/27/18 crack Route: Smoking Frequency: Daily Amount used: $50 Age of first use: 23 Date of Last Use: 08/27/18 Family Disease History - Family Disease History Family Disease History: Heart Disease: Grandparent, Mother (alcohol,sober, htn) , Respiratory: Grandparent, Other: Father (alcohol,), Mother, Brother ( two - one blind (head trauma)), Sister (three - living ), Daughter (age 18, healthy) Admission Physical Exam [facility] - Vital Signs Vital Signs: Vital Signs - 24 hr 08/28/18 09:36 Temperature 97.4 F L Pulse Rate 77 Respiratory 18 Rate Blood Pressure 134/93 - Physical General Appearance: Yes: Nourished, Appropriately Dressed, Moderate Distress, Tremorous, Anxious HEENTM: Yes: EOMI, Hearing grossly Normal, Normocephalic, Normal Voice, Pharynx Normal, Other (poor dentition) Respiratory: Yes: No Respiratory Distress Neck: Yes: No masses,lesions,Nodules Breast: Yes: Breast Exam Deferred Cardiology: Yes: Regular Rhythm, Regular Rate Abdominal: Yes: Soft Genitourinary: Yes: Frequency Back: Yes: Normal Inspection Musculoskeletal: Yes: full range of Motion, Gait Steady Extremities: Yes: Normal Inspection, Normal Range of Motion, Non-Tender Neurological: Yes: Alert, Motor Strength 5/5, Normal Mood/Affect, Normal Response Integumentary: Yes: Normal Color, Dry, Warm, Other (ashy skin) Lymphatic: Yes: Within Normal Limits - Diagnostic (1) Alcohol dependence with uncomplicated withdrawal Current Visit: Yes Status: Chronic (2) Cocaine dependence, uncomplicated Current Visit: Yes Status: Chronic (3) Eczema of both hands Current Visit: Yes Status: Chronic (4) GERD (gastroesophageal reflux disease) Current Visit: Yes Status: Chronic Qualifiers: Esophagitis presence: without esophagitis Qualified Code(s): K21.9 - Gastro -esophageal reflux disease without esophagitis (5) Nicotine dependence Current Visit: Yes Status: Chronic Qualifiers: Nicotine product type: cigarettes Substance use status: uncomplicated Qualified Code(s): F17.210 - Nicotine dependence, cigarettes, uncomplicated Cleared for Admission [facility] - Detox or Rehab [facility] Level of Care: Medically Managed Detox Regimen/Protocol: Librium [facility] Breath Alcohol Content Breath Alcohol Content: 0 Urine Pregancy Test - Result Urine Test Results: Negative- NO Line Present Urine Drug Screen - Results Drug Screen Negative: No Urine Drug Screen Results: FLOWER-Cocaine, OPI-Opiates, BZO-Benzodiazepines
[2018-08-28] MEDS ORDERED: MAGNESIUM HYDROX 2400MG/30ML ORAL SUSPENSION 30 ML CUP PO PRN (12:24)
[2018-08-28] MEDS ORDERED: MENTHOL/PHENOL 1 EACH UD MM PRN (12:24)
[2018-08-28] MEDS ORDERED: ACETAMINOPHEN 325 MG TABLET (FP) PO PRN (12:24)
[2018-08-28] MEDS ORDERED: chlordiazePOXIDE HCL 25 MG CAPSULE PO PRN (12:24)
[2018-08-28] MEDS ORDERED: LOPERAMIDE HCL 2 MG CAPSULE PO PRN (12:24)
[2018-08-28] MEDS ORDERED: guaiFENesin/D-METHORPHAN HB 10 ML UNIT-DOSE CUPS PO PRN (12:24)
[2018-08-28] MEDS ORDERED: P-EPHED 60MG/TRIPROLIDI 2.5MG TABLET PO PRN (12:24)
[2018-08-28] MEDS ORDERED: MAGNESIUM CITRATE 300 ML BOTTLE PO PRN (12:24)
[2018-08-28] MEDS ORDERED: MAG HYDROX/AL HYDROX/SIMETH 30 ML UNIT-DOSE CUP PO PRN (12:24)
[2018-08-28] MEDS ORDERED: ALBUTEROL SO4 8 GM HFA INHALER IH PRN (12:25)
[2018-08-28] MEDS ORDERED: COLLOIDAL OATMEAL 1 BAR EACH TP PRN (12:25)
[2018-08-28] MEDS: NICOTINE 21 MG/24 HOURS TOPICAL PATCH TD SCH (14:55)
[2018-08-28] MEDS: HYDROCORTISONE 0.5% TOPICAL CREAM 30 GM TUBE TP SCH ×2 (15:12→22:32)
[2018-08-28] MEDS: chlordiazePOXIDE HCL 25 MG CAPSULE PO SCH ×2 (18:11→22:24)
[2018-08-28] MEDS: IBUPROFEN 400 MG TABLET (FP) PO PRN (22:23)
[2018-08-28] MEDS: THIAMINE HCL 100 MG TABLET (FP) PO SCH (22:24)
[2018-08-29] MEDS: chlordiazePOXIDE HCL 25 MG CAPSULE PO SCH ×4 (05:17→22:18)
[2018-08-29] MEDS: HYDROCORTISONE 0.5% TOPICAL CREAM 30 GM TUBE TP SCH ×2 (10:34→22:19)
[2018-08-29] MEDS: PRENATAL VITAMINS W/ FOLIC ACID TABLET (FP) PO SCH (10:34)
[2018-08-29] MEDS: NICOTINE 21 MG/24 HOURS TOPICAL PATCH TD SCH (10:34)
[2018-08-29 10:47] LABS: HEMATOCRIT 36.3 % (32.4-45.2); HEMOGLOBIN 11.5 GM/dL (10.7-15.3); MCH 31.8 pg (25.7-33.7); MCHC 31.7 g/dl (32.0-36.0); MEAN CELL VOLUME 100.4 fl (80-96); MEAN PLT VOLUME 9.7 fl (7.5-11.1); PLATELET COUNT 170 K/MM3 (134-434); RBC 3.62 M/mm3 (3.60-5.2); RDW 14.7 % (11.6-15.6); WHITE BLOOD COUNT 3.9 K/mm3 (4.0-10.0)
[2018-08-29 10:56] LABS: ALBUMIN 3.1 g/dl (3.4-5.0); ALK PHOS 38 U/L (45-117); ANION GAP 7 MMOL/L (8-16); BILIRUBIN,TOTAL 0.4 mg/dL (0.2-1); BLOOD UREA NITROGEN 14 mg/dL (7-18); CALCIUM 8.4 mg/dL (8.5-10.1); CHLORIDE 107 mmol/L (98-107); CO2 26 mmol/L (21-32); CREATININE 0.9 mg/dL (0.55-1.3); GLUCOSE,RANDOM 96 mg/dL (74-106); POTASSIUM 3.9 mmol/L (3.5-5.1); SGOT/AST 19 U/L (15-37); SGPT/ALT 16 U/L (13-61); SODIUM 141 mmol/L (136-145); TOT PROT 6.1 g/dl (6.4-8.2)
[2018-08-29] MEDS: IBUPROFEN 400 MG TABLET (FP) PO PRN (11:22)
[2018-08-29] MEDS: BENZOCAINE 20 % GEL TUBE MM PRN (16:26)
[2018-08-29] MEDS ORDERED: ALBUTEROL SO4 8 GM HFA INHALER IH PRN (17:06)
--- NOTE | 2018-08-29 17:08 | PN ---
S CIWA - CIWA Score Nausea/Vomitin Muscle Tremors: 4-Moderate,w/Arms Extend Anxiety: 4-Mod. Anxious/Guarded Agitation: 4-Moderately Restless Paroxysmal Sweats: 3 Orientation: 0-Oriented Tacttile Disturbances: 0-None Auditory Disturbances: 0-None Visual Disturbances: 0-None Headache: 0-None Present CIWA-Ar Total Score: 17 [facility] Progress Note (SOAP) Subjective: Feeling tired, sweating Objective: 08/29/18 17:08 Last Vital Signs Temp Pulse Resp BP Pulse Ox 97.5 F L 876 H 18 130/85 08/29/18 14:24 08/29/18 14:24 08/29/18 14:24 08/29/18 14:24 Laboratory Tests 08/29/18 08/29/18 08/29/18 07:50 07:50 08:30 WBC 3.9 L RBC 3.62 Hgb 11.5 Hct 36.3 MCV 100.4 H MCH 31.8 MCHC 31.7 L RDW 14.7 Plt Count 170 MPV 9.7 Sodium 141 Potassium 3.9 Chloride 107 Carbon Dioxide 26 Anion Gap 7 L BUN 14 Creatinine 0.9 Creat Clearance w eGFR > 60 Random Glucose 96 Calcium 8.4 L Total Bilirubin 0.4 AST 19 ALT 16 Alkaline Phosphatase 38 L Total Protein 6.1 L Albumin 3.1 L RPR Titer Nonreactive Labs reviewed Assessment: 08/29/18 17:08 Withdrawal symptoms Plan: Continue detox Encouraged PO water intake
[2018-08-29] MEDS: MELATONIN 5 MG TABLETS PO PRN (22:18)
[2018-08-29] MEDS: THIAMINE HCL 100 MG TABLET (FP) PO SCH (22:18)
[2018-08-30] MEDS: chlordiazePOXIDE HCL 25 MG CAPSULE PO SCH ×2 (05:56→10:21)
[2018-08-30] MEDS: NICOTINE 21 MG/24 HOURS TOPICAL PATCH TD SCH (10:22)
[2018-08-30] MEDS: PRENATAL VITAMINS W/ FOLIC ACID TABLET (FP) PO SCH (10:22)
[2018-08-30] MEDS: HYDROCORTISONE 0.5% TOPICAL CREAM 30 GM TUBE TP SCH ×2 (10:23→22:10)
--- NOTE | 2018-08-30 11:13 | PN ---
S CIWA - CIWA Score Nausea/Vomitin-Mild Nausea/No Vomiting Muscle Tremors: 3 Anxiety: 2 Agitation: 2 Paroxysmal Sweats: 1-Minimal Palms Moist Orientation: 1-Uncertain about Date Tacttile Disturbances: 0-None Auditory Disturbances: 0-None Visual Disturbances: 0-None Headache: 2-Mild CIWA-Ar Total Score: 12 S Progress Note (SOAP) Subjective: tremor sweating trouble sleep at night otherwise doing ok Objective: 08/30/18 11:08 Vital Signs Temperature 97.2 F L 08/30/18 09:29 Pulse Rate 75 08/30/18 09:29 Respiratory Rate 18 08/30/18 09:29 Blood Pressure 105/68 08/30/18 09:29 O2 Sat by Pulse Oximetry (%) Laboratory Last Values WBC 3.9 K/mm3 (4.0-10.0) L 08/29/18 08:30 RBC 3.62 M/mm3 (3.60-5.2) 08/29/18 08:30 Hgb 11.5 GM/dL (10.7-15.3) 08/29/18 08:30 Hct 36.3 % (32.4-45.2) 08/29/18 08:30 MCV 100.4 fl (80-96) H 08/29/18 08:30 MCH 31.8 pg (25.7-33.7) 08/29/18 08:30 MCHC 31.7 g/dl (32.0-36.0) L 08/29/18 08:30 RDW 14.7 % (11.6-15.6) 08/29/18 08:30 Plt Count 170 K/MM3 (134-434) 08/29/18 08:30 MPV 9.7 fl (7.5-11.1) 08/29/18 08:30 Sodium 141 mmol/L (136-145) 08/29/18 07:50 Potassium 3.9 mmol/L (3.5-5.1) 08/29/18 07:50 Chloride 107 mmol/L (98-107) 08/29/18 07:50 Carbon Dioxide 26 mmol/L (21-32) 08/29/18 07:50 Anion Gap 7 MMOL/L (8-16) L 08/29/18 07:50 BUN 14 mg/dL (7-18) 08/29/18 07:50 Creatinine 0.9 mg/dL (0.55-1.3) 08/29/18 07:50 Creat Clearance w eGFR > 60 (>60) 08/29/18 07:50 Random Glucose 96 mg/dL (74-106) 08/29/18 07:50 Calcium 8.4 mg/dL (8.5-10.1) L 08/29/18 07:50 Total Bilirubin 0.4 mg/dL (0.2-1) 08/29/18 07:50 AST 19 U/L (15-37) 08/29/18 07:50 ALT 16 U/L (13-61) 08/29/18 07:50 Alkaline Phosphatase 38 U/L (45-117) L 08/29/18 07:50 Total Protein 6.1 g/dl (6.4-8.2) L 08/29/18 07:50 Albumin 3.1 g/dl (3.4-5.0) L 08/29/18 07:50 RPR Titer Nonreactive (NONREACTIVE) 08/29/18 07:50 lab noted Assessment: 08/30/18 11:13 withdrawal sx Plan: continue detox
[2018-08-30] MEDS: chlordiazePOXIDE 5 MG CAPSULE PO SCH ×2 (17:12→22:10)
[2018-08-30] MEDS: THIAMINE HCL 100 MG TABLET (FP) PO SCH (22:10)
[2018-08-30] MEDS: MELATONIN 5 MG TABLETS PO PRN (22:12)
[2018-08-31] MEDS: chlordiazePOXIDE 5 MG CAPSULE PO SCH ×2 (05:34→10:36)
[2018-08-31] MEDS: PRENATAL VITAMINS W/ FOLIC ACID TABLET (FP) PO SCH (10:35)
[2018-08-31] MEDS: NICOTINE 21 MG/24 HOURS TOPICAL PATCH TD SCH (10:36)
[2018-08-31] MEDS: HYDROCORTISONE 0.5% TOPICAL CREAM 30 GM TUBE TP SCH ×2 (10:37→22:12)
--- NOTE | 2018-08-31 14:13 | PN ---
[facility] Progress Note (SOAP) Subjective: Sweating, Body Aches. Objective: PATIENT A & O X 3, OBSERVED AMBULATING ON UNIT. IN NO ACUTE DISTRESS. 08/31/18 14:12 Vital Signs Temperature 96.7 F L 08/31/18 13:17 Pulse Rate 86 08/31/18 13:17 Respiratory Rate 18 08/31/18 13:17 Blood Pressure 111/72 08/31/18 13:17 O2 Sat by Pulse Oximetry (%) Laboratory Tests 08/29/18 08/29/18 08/29/18 07:50 07:50 08:30 WBC 3.9 L RBC 3.62 Hgb 11.5 Hct 36.3 MCV 100.4 H MCH 31.8 MCHC 31.7 L RDW 14.7 Plt Count 170 MPV 9.7 Sodium 141 Potassium 3.9 Chloride 107 Carbon Dioxide 26 Anion Gap 7 L BUN 14 Creatinine 0.9 Creat Clearance w eGFR > 60 Random Glucose 96 Calcium 8.4 L Total Bilirubin 0.4 AST 19 ALT 16 Alkaline Phosphatase 38 L Total Protein 6.1 L Albumin 3.1 L RPR Titer Nonreactive LABS NOTED. Assessment: 08/31/18 14:12 WITHDRAWAL SYMPTOMS. Plan: CONTINUE DETOX. PATIENT SCHEDULED FOR D/C TOMORROW.
[2018-08-31] MEDS: chlordiazePOXIDE HCL 10 MG CAPSULE PO SCH ×2 (17:29→22:12)
[2018-08-31] MEDS: THIAMINE HCL 100 MG TABLET (FP) PO SCH (22:12)
[2018-08-31] MEDS: MELATONIN 5 MG TABLETS PO PRN (22:13)
[2018-08-31] MEDS: BENZOCAINE 20 % GEL TUBE MM PRN (22:14)
[2018-09-01] MEDS: chlordiazePOXIDE HCL 10 MG CAPSULE PO SCH (05:37)
[2018-09-01 06:14] VITALS: BP 124/73; PULSE 72; TEMP 97.2
--- NOTE | 2018-09-01 14:13 | DS ---
[facility] Detox Discharge Summary Admission Date: 08/28/18 Discharge Date: 09/01/18 - History Present History: Alcohol Dependence Additional Comments: 42 years old female admitted on 08/28/18 for alcohol withdrawal stabiliation completed detox regimen after[facility] Physical Exam Results Vital Signs: Vital Signs Temperature 97.2 F L 09/01/18 06:12 Pulse Rate 72 09/01/18 06:12 Respiratory Rate 18 09/01/18 06:12 Blood Pressure 124/73 09/01/18 06:12 O2 Sat by Pulse Oximetry (%) Pertinent Admission Physical Exam Findings: alcohol withdrawal sx Laboratory Last Values WBC 3.9 K/mm3 (4.0-10.0) L 08/29/18 08:30 RBC 3.62 M/mm3 (3.60-5.2) 08/29/18 08:30 Hgb 11.5 GM/dL (10.7-15.3) 08/29/18 08:30 Hct 36.3 % (32.4-45.2) 08/29/18 08:30 MCV 100.4 fl (80-96) H 08/29/18 08:30 MCH 31.8 pg (25.7-33.7) 08/29/18 08:30 MCHC 31.7 g/dl (32.0-36.0) L 08/29/18 08:30 RDW 14.7 % (11.6-15.6) 08/29/18 08:30 Plt Count 170 K/MM3 (134-434) 08/29/18 08:30 MPV 9.7 fl (7.5-11.1) 08/29/18 08:30 Sodium 141 mmol/L (136-145) 08/29/18 07:50 Potassium 3.9 mmol/L (3.5-5.1) 08/29/18 07:50 Chloride 107 mmol/L (98-107) 08/29/18 07:50 Carbon Dioxide 26 mmol/L (21-32) 08/29/18 07:50 Anion Gap 7 MMOL/L (8-16) L 08/29/18 07:50 BUN 14 mg/dL (7-18) 08/29/18 07:50 Creatinine 0.9 mg/dL (0.55-1.3) 08/29/18 07:50 Creat Clearance w eGFR > 60 (>60) 08/29/18 07:50 Random Glucose 96 mg/dL (74-106) 08/29/18 07:50 Calcium 8.4 mg/dL (8.5-10.1) L 08/29/18 07:50 Total Bilirubin 0.4 mg/dL (0.2-1) 08/29/18 07:50 AST 19 U/L (15-37) 08/29/18 07:50 ALT 16 U/L (13-61) 08/29/18 07:50 Alkaline Phosphatase 38 U/L (45-117) L 08/29/18 07:50 Total Protein 6.1 g/dl (6.4-8.2) L 08/29/18 07:50 Albumin 3.1 g/dl (3.4-5.0) L 08/29/18 07:50 RPR Titer Nonreactive (NONREACTIVE) 08/29/18 07:50 lab noted - Treatment Hospital Course: Detox Protocol Followed, Detoxed Safely, Responded well, Discharged Condition Good, Rehab Referral Accepted Patient has Accepted a Rehab Referral to: [facility] - Medication Discharge Medications: Ambulatory Orders Hydrocortisone 0.5% Cream [Hytone 0.5% Cream -] 1 applic TP BID 07/29/18 Albuterol Sulfate Inhaler - [Ventolin HFA Inhaler -] 2 inh PO Q4H PRN #1 inhaler 08/31/18 - Diagnosis (1) Alcohol dependence with uncomplicated withdrawal Status: Acute (2) Asthma Status: Chronic Qualifiers: Asthma severity: mild Asthma persistence: intermittent Asthma complication type: with status asthmaticus Qualified Code(s): J45.22 - Mild intermittent asthma with status asthmaticus (3) Eczema of both hands Status: Chronic (4) GERD (gastroesophageal reflux disease) Status: Chronic Qualifiers: Esophagitis presence: without esophagitis Qualified Code(s): K21.9 - Gastro -esophageal reflux disease without esophagitis (5) Nicotine dependence Status: Acute Qualifiers: Nicotine product type: cigarettes Substance use status: in withdrawal Qualified Code(s): F17.213 - Nicotine dependence, cigarettes, with withdrawal (6) Drug-induced mood disorder Status: Suspected - AMA Did Patient Leave Against Medical Advice: No
== END 2018-09-01 09:42 | disposition home or self-care (01) | DRG 774 ==
LOC: YASAS 09:06 → Y3N 14:11
PROC: HZ2ZZZZ Detoxification Services for Substance Abuse Treatment (ICD-10-PCS; principal; 2018-08-28)
DX: F10.230 Alcohol dependence with withdrawal, uncomplicated (principal); F14.20 Cocaine dependence, uncomplicated; F17.213 Nicotine dependence, cigarettes, with withdrawal; F19.24 Other psychoactive substance dependence with psychoactive substance-induced mood disorder; J45.22 Mild intermittent asthma with status asthmaticus; K21.9 Gastro-esophageal reflux disease without esophagitis; L30.9 Dermatitis, unspecified
CPT/HCPCS: 36415; 80053; 85027; 86593

== ENCOUNTER 2018-09-13 08:35 | Inpatient (IN) | payer OTHER ==
[2018-09-13 08:46] VITALS: BMI 29.7
[2018-09-13] MEDS ORDERED: MENTHOL/PHENOL 1 EACH UD MM PRN (11:05)
[2018-09-13] MEDS ORDERED: P-EPHED 60MG/TRIPROLIDI 2.5MG TABLET PO PRN (11:05)
[2018-09-13] MEDS ORDERED: MAGNESIUM HYDROX 2400MG/30ML ORAL SUSPENSION 30 ML CUP PO PRN (11:05)
[2018-09-13] MEDS ORDERED: IBUPROFEN 400 MG TABLET (FP) PO PRN (11:05)
[2018-09-13] MEDS ORDERED: ACETAMINOPHEN 325 MG TABLET (FP) PO PRN (11:05)
[2018-09-13] MEDS ORDERED: NICOTINE POLACRILEX 4 MG GUM BUC PRN (11:05)
[2018-09-13] MEDS ORDERED: MAG HYDROX/AL HYDROX/SIMETH 30 ML UNIT-DOSE CUP PO PRN (11:05)
[2018-09-13] MEDS ORDERED: MAGNESIUM CITRATE 300 ML BOTTLE PO PRN (11:05)
[2018-09-13] MEDS ORDERED: guaiFENesin/D-METHORPHAN HB 10 ML UNIT-DOSE CUPS PO PRN (11:05)
[2018-09-13] MEDS ORDERED: LOPERAMIDE HCL 2 MG CAPSULE PO PRN (11:05)
--- NOTE | 2018-09-13 11:05 | HP ---
[facility] Rehab Assess/Revision - Admission History Admitted to Rehab from: [address] - Vital signs Vital Signs: Vital Signs Period Temp Pulse Resp BP Sys/B[place]ne Pulse Ox Last 24 Hr 96.3 F 78 18 120/79 - Findings Detox History & Physical reviewed: Yes Concur with findings: Yes Inpatient Rehab Admission - Initial Determination Are CD services needed?: Yes Free of communicable disease: Yes - Rehab Admission Criteria Previous failed treatment: Yes Poor recovery environment: Yes Comorbidities: Yes Lacks judgement: Yes
[2018-09-13] MEDS ORDERED: ALBUTEROL SO4 8 GM HFA INHALER IH PRN (11:07)
[2018-09-13] MEDS ORDERED: BENZOCAINE 20 % GEL TUBE MM PRN (11:07)
[2018-09-13 14:53] LABS: HEMATOCRIT 36.4 % (32.4-45.2); HEMOGLOBIN 12.4 GM/dL (10.7-15.3); MCHC 34.1 g/dl (32.0-36.0); MEAN CELL VOLUME 99.6 fl (80-96); PLATELET COUNT 209 K/MM3 (134-434); RBC 3.65 M/mm3 (3.60-5.2); WHITE BLOOD COUNT 3.4 K/mm3 (4.0-10.0)
[2018-09-13 15:10] LABS: ALK PHOS 47 U/L (45-117); ANION GAP 6 MMOL/L (8-16); BILIRUBIN,TOTAL 0.4 mg/dL (0.2-1); BLOOD UREA NITROGEN 18 mg/dL (7-18); CHLORIDE 106 mmol/L (98-107); CO2 29 mmol/L (21-32); GLUCOSE,RANDOM 86 mg/dL (74-106); POTASSIUM 3.9 mmol/L (3.5-5.1); SGOT/AST 26 U/L (15-37); SGPT/ALT 20 U/L (13-61); SODIUM 141 mmol/L (136-145); TOT PROT 7.5 g/dl (6.4-8.2)
[2018-09-13] MEDS ORDERED: MELATONIN 5 MG TABLETS PO PRN (22:00)
[2018-09-13] MEDS: HYDROCORTISONE 0.5% TOPICAL CREAM 30 GM TUBE TP SCH (22:45)
[2018-09-13] MEDS: THIAMINE HCL 100 MG TABLET (FP) PO SCH (23:13)
[2018-09-14] MEDS: NICOTINE 21 MG/24 HOURS TOPICAL PATCH TD SCH (09:41)
[2018-09-14] MEDS: PRENATAL VITAMINS W/ FOLIC ACID TABLET (FP) PO SCH (09:41)
[2018-09-14] MEDS: HYDROCORTISONE 0.5% TOPICAL CREAM 30 GM TUBE TP SCH ×2 (09:41→21:29)
[2018-09-14 11:28] LABS: URINE APPEARANCE TURBID; URINE BILIRUBIN NEGATIVE (<2.0 mg/dL); URINE COLOR AMBER; URINE GLUCOSE (UA) NEGATIVE (NEGATIVE); URINE KETONE 1+ (NEGATIVE); URINE LEUK ESTERASE NEGATIVE (NEGATIVE); URINE NITRITE NEGATIVE (NEGATIVE); URINE PROTEIN 1+ (NEGATIVE); URINE UROBILINOGEN NEGATIVE mg/dL (0.2-1.0)
[2018-09-14 12:25] LABS: EPI CELLS RARE /HPF (FEW); URINE MUCUS FEW
--- NOTE | 2018-09-14 15:51 | EKG ---
Test Reason : Blood Pressure : / mmHG Vent. Rate : 075 BPM Atrial Rate : 075 BPM P-R Int : 152 ms QRS Dur : 088 ms QT Int : 390 ms P-R-T Axes : 059 059 056 degrees QTc Int : 435 ms NORMAL SINUS RHYTHM NORMAL ECG WHEN COMPARED WITH ECG OF 24-JUN-2018 12:26, NO SIGNIFICANT CHANGE WAS FOUND Confirmed by Luis E Harris ([id number]) on 09/14/2018 3:51:30 PM Referred By: Confirmed By:Luis E Harris
[2018-09-14] MEDS: THIAMINE HCL 100 MG TABLET (FP) PO SCH (21:29)
[2018-09-15] MEDS ORDERED: PT OWN MED DRAWER 7, Y5N ONE (09:13)
[2018-09-15] MEDS: PRENATAL VITAMINS W/ FOLIC ACID TABLET (FP) PO SCH (09:37)
[2018-09-15] MEDS: HYDROCORTISONE 0.5% TOPICAL CREAM 30 GM TUBE TP SCH ×2 (09:37→23:01)
[2018-09-15] MEDS: NICOTINE 21 MG/24 HOURS TOPICAL PATCH TD SCH (09:37)
--- NOTE | 2018-09-15 15:45 | CONSULT ---
[facility] Psychiatric Consult - Data Date of interview: 09/15/18 Admission source: [facility] Identifying data: This is the second admission to [address] [place] [address] inpatient rehabilitation for this 42 4years old single mother of 1 18 yo daughter(girl resides with her Godmother).Patient [place],supported by [place]. Substance Abuse History: Reports drinking since 12 yo,beer then vodka ,rum (1 pint daily),Cocaine since 24 yo,then crack($250 daily).Patient left AMA this program in May 2018, Medical History: GERD,Eczema,BA. Psychiatric History: Patient reports feeling depressed on and off all the time for few years ,medicated herself with drinking and crack/cocaine.She denies suicidal attempts,reports some suicidal ,desperation thinking at times.No psychiatric hospitalizations reported.No psychiatric care in the past.patient is willing to start antidepressants,anxiolytics. Physical/Sexual Abuse/Trauma History: Patient denies. Mental Status Exam - Mental Status Exam Alert and Oriented to: Time, Place, Person Cognitive Function: Grossly Intact Patient Appearance: Unkempt Mood: Sad, Anxious Affect: Labile Patient Behavior: Cooperative Speech Pattern: Clear Voice Loudness: Normal Thought Process: Goal Oriented Thought Disorder: Not Present Hallucinations: Denies Suicidal Ideation: Denies Homicidal Ideation: Denies Insight/Judgement: Fair Sleep: Fair Appetite: Good Muscle strength/Tone: Normal Gait/Station: Normal Psychiatric Findings - Problem List ([place] 1, 2,3) (1) Eczema of both hands Current Visit: Yes Status: Chronic (2) Nicotine dependence Current Visit: Yes Status: Chronic Qualifiers: Nicotine product type: cigarettes Substance use status: uncomplicated Qualified Code(s): F17.210 - Nicotine dependence, cigarettes, uncomplicated (3) Asthma Current Visit: Yes Status: Chronic Qualifiers: Asthma severity: mild Asthma persistence: unspecified (4) Cocaine dependence, uncomplicated Current Visit: Yes Status: Chronic (5) Alcohol dependence Current Visit: Yes Status: Acute (6) GERD (gastroesophageal reflux disease) Current Visit: No Status: Chronic Qualifiers: Esophagitis presence: without esophagitis (7) History of anemia Current Visit: Yes Status: Chronic (8) Drug-induced mood disorder Current Visit: Yes Status: Suspected - Initial Treatment Plan Initial Treatment Plan: Zoloft 50 mg po daily,Vistaril 25 mg po qid for anxiety. Will monitor progress.
[2018-09-15] MEDS: SERTRALINE HCL 50 MG TABLET (FP) PO SCH (16:35)
[2018-09-15] MEDS: THIAMINE HCL 100 MG TABLET (FP) PO SCH (21:34)
[2018-09-15] MEDS: hydrOXYzine PAMOATE 50 MG CAPSULE (FP) PO PRN (21:34)
[2018-09-16 07:51] VITALS: TEMP 97.8
[2018-09-16] MEDS: HYDROCORTISONE 0.5% TOPICAL CREAM 30 GM TUBE TP SCH ×2 (09:12→21:37)
[2018-09-16] MEDS: PRENATAL VITAMINS W/ FOLIC ACID TABLET (FP) PO SCH (09:13)
[2018-09-16] MEDS: SERTRALINE HCL 50 MG TABLET (FP) PO SCH (09:13)
[2018-09-16] MEDS: NICOTINE 21 MG/24 HOURS TOPICAL PATCH TD SCH (09:13)
[2018-09-16] MEDS: THIAMINE HCL 100 MG TABLET (FP) PO SCH (21:05)
[2018-09-16] MEDS: hydrOXYzine PAMOATE 50 MG CAPSULE (FP) PO PRN (21:06)
[2018-09-17 07:36] VITALS: BP 143/83; PULSE 65
[2018-09-17] MEDS: HYDROCORTISONE 0.5% TOPICAL CREAM 30 GM TUBE TP SCH (09:00)
[2018-09-17] MEDS: PRENATAL VITAMINS W/ FOLIC ACID TABLET (FP) PO SCH (09:06)
[2018-09-17] MEDS: NICOTINE 21 MG/24 HOURS TOPICAL PATCH TD SCH (09:06)
[2018-09-17] MEDS: SERTRALINE HCL 50 MG TABLET (FP) PO SCH (09:06)
--- NOTE | 2018-09-17 09:14 | PN ---
[facility] Progress Note Note: PT REQUESTING TO DISCHARGE AMA: TC FROM NURSE TO REPORT PATIENT WANTS TO SING OUT AMA STATING PT SAYS SHE HAS PERSONAL BUSINESS TO TAKE CARE. PT IN A HURRY TO LEAVE, LEFT THE UNIT AND UNABLE TO SEE PATIENT BEFORE HER EXIT WHEN THIS BUS COMPANY MANAGER ARRIVED ON THE UNIT. Vital Signs - 24 hr 09/17/18 09/17/18 09/17/18 00:30 03:30 07:36 Temperature 97.8 F Pulse Rate 65 Respiratory 16 18 18 Rate Blood Pressure 143/83 Laboratory Tests 09/13/18 09/13/18 09/13/18 11:30 11:30 11:30 WBC 3.4 L RBC 3.65 Hgb 12.4 Hct 36.4 MCV 99.6 H MCH 34.0 H MCHC 34.1 RDW 15.0 Plt Count 209 D MPV 10.0 Sodium 141 Potassium 3.9 Chloride 106 Carbon Dioxide 29 Anion Gap 6 L BUN 18 Creatinine 1.0 Creat Clearance w eGFR > 60 Random Glucose 86 Calcium 9.0 Total Bilirubin 0.4 AST 26 ALT 20 Alkaline Phosphatase 47 Total Protein 7.5 Albumin 4.0 Urine Color Urine Appearance Urine pH Ur Specific [place] Urine Protein Urine Glucose (UA) Urine Ketones Urine Blood Urine Nitrite Urine Bilirubin Urine Urobilinogen Ur Leukocyte Esterase Urine WBC (Auto) Urine RBC (Auto) Ur Epithelial Cells Urine Mucus RPR Titer Nonreactive 09/14/18 08:00 WBC RBC Hgb Hct MCV MCH MCHC RDW Plt Count MPV Sodium Potassium Chloride Carbon Dioxide Anion Gap BUN Creatinine Creat Clearance w eGFR Random Glucose Calcium Total Bilirubin AST ALT Alkaline Phosphatase Total Protein Albumin Urine Color [place] Urine Appearance Turbid Urine pH 5.0 Ur Specific [place] 1.025 Urine Protein 1+ H Urine Glucose (UA) Negative Urine Ketones 1+ H Urine Blood Negative Urine Nitrite Negative Urine Bilirubin Negative Urine Urobilinogen Negative Ur Leukocyte Esterase Negative Urine WBC (Auto) <1 Urine RBC (Auto) 1 Ur Epithelial Cells Rare Urine Mucus Few RPR Titer PLAN:TO FOLLOW UP WITH [facility] CD AFTERCARE RECOMMENDED.
== END 2018-09-17 09:25 | disposition left against medical advice (07) | DRG 770 ==
LOC: YASAS 08:35 → Y3E 11:09
PROVIDERS: ADMIT Psychiatry & Neurology Psychiatry; ATTEND Psychiatry & Neurology Psychiatry
PROC: HZ42ZZZ Group Counseling for Substance Abuse Treatment, Cognitive-Behavioral (ICD-10-PCS; principal; 2018-09-13)
DX: F10.20 Alcohol dependence, uncomplicated (principal); F14.20 Cocaine dependence, uncomplicated; F17.210 Nicotine dependence, cigarettes, uncomplicated; F19.24 Other psychoactive substance dependence with psychoactive substance-induced mood disorder; F41.9 Anxiety disorder, unspecified; F32.9 Major depressive disorder, single episode, unspecified; J45.909 Unspecified asthma, uncomplicated; K21.9 Gastro-esophageal reflux disease without esophagitis; L30.9 Dermatitis, unspecified; M25.562 Pain in left knee; M25.561 Pain in right knee
CPT/HCPCS: 36415; 80053; 81003; 81015; 85027; 86593; 93005; 93010

== ENCOUNTER 2018-12-03 08:00 | Inpatient (IN) | payer OTHER ==
[2018-12-03 08:30] VITALS: BMI 29.5
--- NOTE | 2018-12-03 08:52 | HP ---
CIWA Score Nausea/Vomitin Muscle Tremors: 2 Anxiety: 2 Agitation: 2 Paroxysmal Sweats: 1-Minimal Palms Moist Orientation: 0-Oriented Tacttile Disturbances: 1-Very Mild Itch/Numbness Auditory Disturbances: 1-Very Mild Visual Disturbances: 0-None Headache: 2-Mild CIWA-Ar Total Score: 13 - Admission Criteria [facility]AS[facility] Guidelines: Admission for Medically Managed Detox: Requires at least one of the followin. CIWA greater than 12 2. Seizures within the past 24 hours 3. Delirium tremens within the past 24 hours 4. Hallucinations within the past 24 hours 5. Acute intervention needed for co occurring medical disorder 6. Acute intervention needed for co occurring psychiatric disorder 7. Severe withdrawal that cannot be handled at a lower level of care (continued vomiting, continued diarrhea, abnormal vital signs) requiring intravenous medication and/or fluids 8. Admission ROS S - HPI Chief Complaint: i need help to stop drinking alcohol and cocaine Allergies/Adverse Reactions: Allergies Allergy/AdvReac Type Severity Reaction Status Date / Time shrimp Allergy Severe Hives Verified 12/03/18 08:25 No Known Drug Allergies Allergy Unknown Verified 12/03/18 08:25 NKDA Allergy Uncoded 12/03/18 08:25 History of Present Illness: this43 years old female with alcohol and cocaine dependence,seeking detox, withdrawal symptom, multiple admissions in detox, last detox 08/28/18 to 09/01/18 [facility] rehab 09/13/18 to 09/17/18 nicotine dependence 1/2 pack/day,requesting nicotine patch longest period of sobriety 2 years plan for relocate in [place] after detox asthma Exam Limitations: No Limitations - Ebola screening Have you traveled outside of the country in the last 21 days: No (N) Have you had contact with anyone from an Ebola affected area: No Do you have a fever: No - Review of Systems Constitutional: Loss of Appetite, Malaise, Night Sweats, Changes in sleep EENT: reports: Nose Congestion Respiratory: reports: No Symptoms reported, Productive cough, Other (asthma) Cardiac: reports: No Symptoms Reported GI: reports: Nausea, Indigestion : reports: No Symptoms Reported Musculoskeletal: reports: Back Pain, Muscle Pain Integumentary: reports: Dryness Neuro: reports: Headache, Tremors Endocrine: reports: No Symptoms Reported Hematology: reports: No Symptoms Reported Psychiatric: reports: No Sypmtoms Reported, Judgement Intact, Mood/Affect Appropiate, Orientated x3 Other Systems: Reviewed and Negative Patient History - Patient Medical History Hx Anemia: No Hx Asthma: Yes (on albuterol inhaler) Hx Chronic Obstructive Pulmonary Disease (COPD): No Hx Cancer: No Hx Cardiac Disorders: No Hx Congestive Heart Failure: No Hx Hypertension: No Hx Hypercholesterolemia: No Hx Pacemaker: No HX Cerebrovascular Accident: No Hx Seizures: No Hx Dementia: No Hx Diabetes: No Hx Gastrointestinal Disorders: No Hx Liver Disease: No Hx Genitourinary Disorders: No Hx Sexually Transmitted Disorders: No Hx Renal Disease (ESRD): No Hx Thyroid Disease: No Hx Human Immunodeficiency Virus (HIV): No (last 04/03 negative) Hx Hepatitis C: No Hx Depression: No Hx Suicide Attempt: No Hx Bipolar Disorder: No Hx Schizophrenia: No Other Medical History: no suicidal,no homicidal - Patient Surgical History Past Surgical History: No Hx Neurologic Surgery: No Hx Cataract Extraction: No Hx Cardiac Surgery: No Hx Lung Surgery: No Hx Breast Surgery: No Hx Breast Biopsy: No Hx Abdominal Surgery: No Hx Appendectomy: No Hx Cholecystectomy: No Hx Genitourinary Surgery: No Hx Section: Yes (18 YEARS AGO) Hx Orthopedic Surgery: No Hx Hysterectomy: No Anesthesia Reaction: No - PPD History Previous Implant?: Yes Documented Results: Negative w/proof Date: 05/20/18 Results: 0 mm PPD to be Administered?: No - Reproductive History Last Menstrual Period: 11/19/18 Patient : No - Smoking Cessation Smoking history: Current every day smoker Have you smoked in the past 12 months: Yes Aproximately how many cigarettes per day: 10 Cigars Per Day: 0 Hx Chewing Tobacco Use: No Initiated information on smoking cessation: Yes 'Breaking Loose' booklet given: 12/03/18 - Substances abused Alcohol Substance route: Oral Frequency: Daily Amount used: 1 [place] Age of first use: 11 Date of last use: 12/03/18 Cocaine Substance route: Smoking Frequency: Daily Amount used: $50-100 Age of first use: 19 Date of last use: 12/02/18 Family Disease History - Family Disease History Family Disease History: Heart Disease: Grandparent, Mother (alcohol,sober, htn) , Respiratory: Grandparent, Other: Father (alcohol,), Mother, Brother ( two - one blind (head trauma)), Sister (three - living ), Daughter (age 18, healthy) Admission Physical Exam [facility] - Vital Signs Vital Signs: Vital Signs - 24 hr 12/03/18 08:24 Temperature 97.4 F L Pulse Rate 73 Respiratory 18 Rate Blood Pressure 116/76 - Physical General Appearance: Yes: Moderate Distress, Tremorous, Irritable, Sweating, Anxious HEENTM: Yes: Nasal Congestion Respiratory: Yes: Lungs Clear, Normal Breath Sounds, No Respiratory Distress Neck: Yes: Within Normal Limits, Supple, Trachea in good position Breast: Yes: Breast Exam Deferred Cardiology: Yes: Within Normal Limits, Regular Rhythm, Regular Rate, S1, S2 Abdominal: Yes: Normal Bowel Sounds, Non Tender, Flat, Soft Genitourinary: Yes: Within Normal Limits Musculoskeletal: Yes: Back pain, Muscle Pain Extremities: Yes: Tremors Neurological: Yes: assistant service manager II-XII NML intact, Fully Oriented, Alert, Motor Strength 5/5 Integumentary: Yes: Dry Lymphatic: Yes: Within Normal Limits - Diagnostic (1) Alcohol dependence with uncomplicated withdrawal Current Visit: No Status: Chronic (2) Asthma Current Visit: No Status: Chronic Qualifiers: Asthma severity: mild Asthma persistence: unspecified (3) Cocaine dependence, uncomplicated Current Visit: No Status: Chronic (4) Eczema of both hands Current Visit: No Status: Chronic (5) Nicotine dependence Current Visit: No Status: Chronic Qualifiers: Nicotine product type: cigarettes Substance use status: uncomplicated Qualified Code(s): F17.210 - Nicotine dependence, cigarettes, uncomplicated Cleared for Admission [facility] - Detox or Rehab [facility] Level of Care: Medically Managed Detox Regimen/Protocol: Librium Inpatient Rehab Admission - Rehab Decision to Admit Inpatient rehab admission?: No
[2018-12-03] MEDS ORDERED: hydrOXYzine PAMOATE 25 MG CAPSULE (FP) PO PRN (09:02)
[2018-12-03] MEDS ORDERED: MAGNESIUM HYDROX 2400MG/30ML ORAL SUSPENSION 30 ML CUP PO PRN (09:02)
[2018-12-03] MEDS ORDERED: ACETAMINOPHEN 325 MG TABLET (FP) PO PRN ×2 (09:02)
[2018-12-03] MEDS ORDERED: IBUPROFEN 400 MG TABLET (FP) PO PRN (09:02)
[2018-12-03] MEDS ORDERED: MAG HYDROX/AL HYDROX/SIMETH 30 ML UNIT-DOSE CUP PO PRN (09:02)
[2018-12-03] MEDS ORDERED: MELATONIN 5 MG TABLETS PO PRN (09:02)
[2018-12-03] MEDS ORDERED: METHOCARBAMOL 500 MG TABLET PO PRN (09:02)
[2018-12-03] MEDS ORDERED: BISMUTH SUBSALICYLATE 524 MG/30 ML UD PO PRN (09:02)
[2018-12-03] MEDS ORDERED: chlordiazePOXIDE HCL 25 MG CAPSULE PO PRN (09:02)
[2018-12-03] MEDS ORDERED: MAGNESIUM CITRATE 300 ML BOTTLE PO PRN (09:02)
[2018-12-03] MEDS ORDERED: MENTHOL/PHENOL 1 EACH UD MM PRN (09:02)
[2018-12-03] MEDS ORDERED: ALBUTEROL SO4 8 GM HFA INHALER IH PRN (09:04)
[2018-12-03] MEDS: chlordiazePOXIDE HCL 25 MG CAPSULE PO SCH ×3 (11:21→22:13)
[2018-12-03] MEDS: PRENATAL VITAMINS W/ FOLIC ACID TABLET (FP) PO SCH (11:21)
[2018-12-03 14:59] LABS: ALBUMIN 3.5 g/dl (3.4-5.0); ALK PHOS 44 U/L (45-117); ANION GAP 7 MMOL/L (8-16); BILIRUBIN,TOTAL 0.2 mg/dL (0.2-1); BLOOD UREA NITROGEN 10 mg/dL (7-18); CALCIUM 8.4 mg/dL (8.5-10.1); CHLORIDE 109 mmol/L (98-107); CO2 25 mmol/L (21-32); CREATININE 0.9 mg/dL (0.55-1.3); GLUCOSE,RANDOM 89 mg/dL (74-106); HEMOGLOBIN 11.4 GM/dL (10.7-15.3); MCH 34.3 pg (25.7-33.7); MCHC 33.6 g/dl (32.0-36.0); MEAN CELL VOLUME 102.2 fl (80-96); MEAN PLT VOLUME 9.7 fl (7.5-11.1); PLATELET COUNT 221 K/MM3 (134-434); POTASSIUM 3.8 mmol/L (3.5-5.1); RBC 3.32 M/mm3 (3.60-5.2); SGOT/AST 28 U/L (15-37); SGPT/ALT 22 U/L (13-61); SODIUM 141 mmol/L (136-145); TOT PROT 6.5 g/dl (6.4-8.2); WHITE BLOOD COUNT 4.8 K/mm3 (4.0-10.0)
[2018-12-03] MEDS: THIAMINE HCL 100 MG TABLET (FP) PO SCH (22:13)
[2018-12-03 23:53] LABS: URINE APPEARANCE CLEAR; URINE BILIRUBIN NEGATIVE (NEGATIVE); URINE COLOR YELLOW; URINE GLUCOSE (UA) NEGATIVE (NEGATIVE); URINE KETONE TRACE (NEGATIVE); URINE LEUK ESTERASE NEGATIVE (NEGATIVE); URINE NITRITE NEGATIVE (NEGATIVE); URINE PROTEIN NEGATIVE (NEGATIVE); URINE UROBILINOGEN 0.2 mg/dL (0.2-1.0)
[2018-12-04] MEDS: chlordiazePOXIDE HCL 25 MG CAPSULE PO SCH ×4 (05:17→22:17)
[2018-12-04] MEDS: PRENATAL VITAMINS W/ FOLIC ACID TABLET (FP) PO SCH (10:09)
--- NOTE | 2018-12-04 17:22 | PN ---
[facility] CIWA - CIWA Score Nausea/Vomitin-No Nausea/No Vomiting Muscle Tremors: 3 Anxiety: 3 Agitation: 0-Normal Activity Paroxysmal Sweats: 3 Orientation: 0-Oriented Tacttile Disturbances: 1-Very Mild Itch/Numbness Auditory Disturbances: 0-None Visual Disturbances: 2-Mild Sensitivity Headache: 0-None Present CIWA-Ar Total Score: 12 S Progress Note (SOAP) Subjective: Sweating, Tremors, Anxious. Objective: PATIENT A & O X 3, OBSERVED AMBULATING ON UNIT UNASSISTED. IN NO ACUTE DISTRESS. 12/04/18 17:21 Vital Signs Temperature 98.4 F 12/04/18 13:24 Pulse Rate 86 12/04/18 13:24 Respiratory Rate 18 12/04/18 13:24 Blood Pressure 129/84 12/04/18 13:24 O2 Sat by Pulse Oximetry (%) Laboratory Tests 12/03/18 12/03/18 12/03/18 09:15 09:15 09:15 WBC 4.8 RBC 3.32 L Hgb 11.4 Hct 34.0 MCV 102.2 H MCH 34.3 H MCHC 33.6 RDW 15.0 Plt Count 221 MPV 9.7 Sodium 141 Potassium 3.8 Chloride 109 H Carbon Dioxide 25 Anion Gap 7 L BUN 10 Creatinine 0.9 Creat Clearance w eGFR 67.71 Random Glucose 89 Calcium 8.4 L Total Bilirubin 0.2 AST 28 ALT 22 Alkaline Phosphatase 44 L Total Protein 6.5 Albumin 3.5 Urine Color Urine Appearance Urine pH Ur Specific [place] Urine Protein Urine Glucose (UA) Urine Ketones Urine Blood Urine Nitrite Urine Bilirubin Urine Urobilinogen Ur Leukocyte Esterase RPR Titer Nonreactive 12/03/18 21:26 WBC RBC Hgb Hct MCV MCH MCHC RDW Plt Count MPV Sodium Potassium Chloride Carbon Dioxide Anion Gap BUN Creatinine Creat Clearance w eGFR Random Glucose Calcium Total Bilirubin AST ALT Alkaline Phosphatase Total Protein Albumin Urine Color Yellow Urine Appearance Clear Urine pH 5.0 Ur Specific [place] 1.021 Urine Protein Negative Urine Glucose (UA) Negative Urine Ketones Trace H Urine Blood Negative Urine Nitrite Negative Urine Bilirubin Negative Urine Urobilinogen 0.2 Ur Leukocyte Esterase Negative RPR Titer LABS NOTED. Assessment: 12/04/18 17:21 WITHDRAWAL SYMPTOMS. ANEMIA. 12/04/18 17:22 Plan: CONTINUE DETOX. PATIENT IS CURRENTLY RECEIVING DAILY MVI CONTAINING B VITAMINS AND IRON WHILE ADMITTED FOR DETOX.
[2018-12-04] MEDS: THIAMINE HCL 100 MG TABLET (FP) PO SCH (22:17)
[2018-12-05] MEDS: chlordiazePOXIDE HCL 25 MG CAPSULE PO SCH (05:45)
[2018-12-05] MEDS: chlordiazePOXIDE HCL 10 MG CAPSULE PO SCH ×3 (10:10→22:24)
[2018-12-05] MEDS: PRENATAL VITAMINS W/ FOLIC ACID TABLET (FP) PO SCH (10:10)
[2018-12-05] MEDS ORDERED: chlordiazePOXIDE HCL 10 MG CAPSULE PO PRN (11:00)
--- NOTE | 2018-12-05 12:06 | PN ---
S CIWA - CIWA Score Nausea/Vomitin-Mild Nausea/No Vomiting Muscle Tremors: 2 Anxiety: 1-Mildly Anxious Agitation: 2 Paroxysmal Sweats: 1-Minimal Palms Moist Orientation: 1-Uncertain about Date Tacttile Disturbances: 0-None Auditory Disturbances: 0-None Visual Disturbances: 0-None Headache: 1-Very Mild CIWA-Ar Total Score: 9 S Progress Note (SOAP) Subjective: mild headache otherwise doing ok Objective: 12/05/18 12:06 Vital Signs Temperature 98.4 F 12/05/18 09:22 Pulse Rate 71 12/05/18 09:22 Respiratory Rate 16 12/05/18 09:22 Blood Pressure 122/79 12/05/18 09:22 O2 Sat by Pulse Oximetry (%) Laboratory Last Values WBC 4.8 K/mm3 (4.0-10.0) 12/03/18 09:15 RBC 3.32 M/mm3 (3.60-5.2) L 12/03/18 09:15 Hgb 11.4 GM/dL (10.7-15.3) 12/03/18 09:15 Hct 34.0 % (32.4-45.2) 12/03/18 09:15 MCV 102.2 fl (80-96) H 12/03/18 09:15 MCH 34.3 pg (25.7-33.7) H 12/03/18 09:15 MCHC 33.6 g/dl (32.0-36.0) 12/03/18 09:15 RDW 15.0 % (11.6-15.6) 12/03/18 09:15 Plt Count 221 K/MM3 (134-434) 12/03/18 09:15 MPV 9.7 fl (7.5-11.1) 12/03/18 09:15 Sodium 141 mmol/L (136-145) 12/03/18 09:15 Potassium 3.8 mmol/L (3.5-5.1) 12/03/18 09:15 Chloride 109 mmol/L (98-107) H 12/03/18 09:15 Carbon Dioxide 25 mmol/L (21-32) 12/03/18 09:15 Anion Gap 7 MMOL/L (8-16) L 12/03/18 09:15 BUN 10 mg/dL (7-18) 12/03/18 09:15 Creatinine 0.9 mg/dL (0.55-1.3) 12/03/18 09:15 Creat Clearance w eGFR 67.71 (>60) 12/03/18 09:15 Random Glucose 89 mg/dL (74-106) 12/03/18 09:15 Calcium 8.4 mg/dL (8.5-10.1) L 12/03/18 09:15 Total Bilirubin 0.2 mg/dL (0.2-1) 12/03/18 09:15 AST 28 U/L (15-37) 12/03/18 09:15 ALT 22 U/L (13-61) 12/03/18 09:15 Alkaline Phosphatase 44 U/L (45-117) L 12/03/18 09:15 Total Protein 6.5 g/dl (6.4-8.2) 12/03/18 09:15 Albumin 3.5 g/dl (3.4-5.0) 12/03/18 09:15 Urine Color Yellow 12/03/18 21:26 Urine Appearance Clear 12/03/18 21:26 Urine pH 5.0 (5.0-8.0) 12/03/18 21:26 Ur Specific [place] 1.021 (1.010-1.035) 12/03/18 21:26 Urine Protein Negative (NEGATIVE) 12/03/18 21:26 Urine Glucose (UA) Negative (NEGATIVE) 12/03/18 21:26 Urine Ketones Trace (NEGATIVE) H 12/03/18 21:26 Urine Blood Negative (NEGATIVE) 12/03/18 21:26 Urine Nitrite Negative (NEGATIVE) 12/03/18 21:26 Urine Bilirubin Negative (NEGATIVE) 12/03/18 21:26 Urine Urobilinogen 0.2 mg/dL (0.2-1.0) 12/03/18 21:26 Ur Leukocyte Esterase Negative (NEGATIVE) 12/03/18 21:26 RPR Titer Nonreactive (NONREACTIVE) 12/03/18 09:15 lab noted Assessment: 12/05/18 12:06 withdrawal sx Plan: continue detox
[2018-12-05] MEDS: THIAMINE HCL 100 MG TABLET (FP) PO SCH (22:24)
[2018-12-06] MEDS: chlordiazePOXIDE HCL 10 MG CAPSULE PO SCH ×3 (06:05→22:30)
[2018-12-06] MEDS: PRENATAL VITAMINS W/ FOLIC ACID TABLET (FP) PO SCH (10:21)
--- NOTE | 2018-12-06 15:39 | PN ---
[facility] CIWA - CIWA Score Nausea/Vomitin-No Nausea/No Vomiting Muscle Tremors: None Anxiety: 0-No Anxiety, at Ease Agitation: 0-Normal Activity Paroxysmal Sweats: No Perspiration Orientation: 0-Oriented Tacttile Disturbances: 1-Very Mild Itch/Numbness Auditory Disturbances: 0-None Visual Disturbances: 1-Very Mild Sensitivity Headache: 0-None Present CIWA-Ar Total Score: 2 BHS Progress Note (SOAP) Subjective: Patient denies current Withdrawal / Detox symptoms and reports that he feels well overall. Objective: PATIENT A & O X 3, OBSERVED AMBULATING ON UNIT UNASSISTED. IN NO ACUTE DISTRESS. 12/06/18 15:35 Vital Signs Temperature 96.9 F L 12/06/18 13:39 Pulse Rate 82 12/06/18 13:39 Respiratory Rate 18 12/06/18 13:39 Blood Pressure 139/94 12/06/18 13:39 O2 Sat by Pulse Oximetry (%) Laboratory Tests 12/03/18 12/03/18 12/03/18 09:15 09:15 09:15 WBC 4.8 RBC 3.32 L Hgb 11.4 Hct 34.0 MCV 102.2 H MCH 34.3 H MCHC 33.6 RDW 15.0 Plt Count 221 MPV 9.7 Sodium 141 Potassium 3.8 Chloride 109 H Carbon Dioxide 25 Anion Gap 7 L BUN 10 Creatinine 0.9 Creat Clearance w eGFR 67.71 Random Glucose 89 Calcium 8.4 L Total Bilirubin 0.2 AST 28 ALT 22 Alkaline Phosphatase 44 L Total Protein 6.5 Albumin 3.5 Urine Color Urine Appearance Urine pH Ur Specific [place] Urine Protein Urine Glucose (UA) Urine Ketones Urine Blood Urine Nitrite Urine Bilirubin Urine Urobilinogen Ur Leukocyte Esterase RPR Titer Nonreactive 12/03/18 21:26 WBC RBC Hgb Hct MCV MCH MCHC RDW Plt Count MPV Sodium Potassium Chloride Carbon Dioxide Anion Gap BUN Creatinine Creat Clearance w eGFR Random Glucose Calcium Total Bilirubin AST ALT Alkaline Phosphatase Total Protein Albumin Urine Color Yellow Urine Appearance Clear Urine pH 5.0 Ur Specific [place] 1.021 Urine Protein Negative Urine Glucose (UA) Negative Urine Ketones Trace H Urine Blood Negative Urine Nitrite Negative Urine Bilirubin Negative Urine Urobilinogen 0.2 Ur Leukocyte Esterase Negative RPR Titer LABS NOTED. Assessment: 12/06/18 15:38 WITHDRAWAL SYMPTOMS. Plan: CONTINUE DETOX. PATIENT SCHEDULED FOR D/C TOMORROW AM.
[2018-12-06] MEDS: THIAMINE HCL 100 MG TABLET (FP) PO SCH (22:30)
[2018-12-07 06:16] VITALS: BP 117/65; PULSE 83; TEMP 98
--- NOTE | 2018-12-07 18:54 | DS ---
[facility] Detox Discharge Summary Admission Date: 12/03/18 Discharge Date: 12/07/18 - History Present History: Alcohol Dependence, Cocaine Dependence Additional Comments: PATIENT IS MOVING TO [place] TO LIVE WITH FAMILY. PATIENT ADVISED TO CONSIDER LOCAL 12-STEP / NA / AA OUTPATIENT SUPPORT GROUPS OR REHAB ONCE SITUATED THERE. PATIENT WAS DISCHARGED FROM DETOX UNIT IN STABLE MEDICAL CONDITION. Pertinent Past History: Nicotine Dependence, Asthma, Eczema Of Bilateral Hands. - Physical Exam Results Vital Signs: Vital Signs Temperature 98 F 12/07/18 06:15 Pulse Rate 83 12/07/18 06:15 Respiratory Rate 18 12/07/18 06:15 Blood Pressure 117/65 12/07/18 06:15 O2 Sat by Pulse Oximetry (%) Pertinent Admission Physical Exam Findings: WITHDRAWAL SYMPTOMS. Laboratory Tests 12/03/18 12/03/18 12/03/18 09:15 09:15 09:15 WBC 4.8 RBC 3.32 L Hgb 11.4 Hct 34.0 MCV 102.2 H MCH 34.3 H MCHC 33.6 RDW 15.0 Plt Count 221 MPV 9.7 Sodium 141 Potassium 3.8 Chloride 109 H Carbon Dioxide 25 Anion Gap 7 L BUN 10 Creatinine 0.9 Creat Clearance w eGFR 67.71 Random Glucose 89 Calcium 8.4 L Total Bilirubin 0.2 AST 28 ALT 22 Alkaline Phosphatase 44 L Total Protein 6.5 Albumin 3.5 Urine Color Urine Appearance Urine pH Ur Specific [place] Urine Protein Urine Glucose (UA) Urine Ketones Urine Blood Urine Nitrite Urine Bilirubin Urine Urobilinogen Ur Leukocyte Esterase RPR Titer Nonreactive 12/03/18 21:26 WBC RBC Hgb Hct MCV MCH MCHC RDW Plt Count MPV Sodium Potassium Chloride Carbon Dioxide Anion Gap BUN Creatinine Creat Clearance w eGFR Random Glucose Calcium Total Bilirubin AST ALT Alkaline Phosphatase Total Protein Albumin Urine Color Yellow Urine Appearance Clear Urine pH 5.0 Ur Specific [place] 1.021 Urine Protein Negative Urine Glucose (UA) Negative Urine Ketones Trace H Urine Blood Negative Urine Nitrite Negative Urine Bilirubin Negative Urine Urobilinogen 0.2 Ur Leukocyte Esterase Negative RPR Titer LABS NOTED. - Treatment Hospital Course: Detox Protocol Followed, Detoxed Safely, Responded well, Discharged Condition Good Patient has Accepted a Rehab Referral to: PT MOVING TO [facility],ADVISED TO CONSIDER LOCAL 12-STEP/NA/AA PROGRAM - Medication Discharge Medications: Ambulatory Orders Albuterol Sulfate Inhaler - [Ventolin HFA Inhaler -] 1 - 2 inh PO Q4H PRN #1 inhaler 12/06/18 - Diagnosis (1) Alcohol dependence with uncomplicated withdrawal Status: Chronic (2) Asthma Status: Chronic Qualifiers: Asthma severity: mild Asthma persistence: unspecified Asthma complication type: uncomplicated Qualified Code(s): J45.909 - Unspecified asthma, uncomplicated (3) Cocaine dependence, uncomplicated Status: Chronic (4) Eczema of both hands Status: Chronic (5) Nicotine dependence Status: Chronic Qualifiers: Nicotine product type: cigarettes Substance use status: uncomplicated Qualified Code(s): F17.210 - Nicotine dependence, cigarettes, uncomplicated - AMA Did Patient Leave Against Medical Advice: No
== END 2018-12-07 08:55 | disposition home or self-care (01) | DRG 774 ==
LOC: YASAS 08:00 → Y3N 09:01
PROVIDERS: ADMIT Surgery; ATTEND Surgery
PROC: HZ2ZZZZ Detoxification Services for Substance Abuse Treatment (ICD-10-PCS; principal; 2018-12-03)
DX: F10.230 Alcohol dependence with withdrawal, uncomplicated (principal); F14.20 Cocaine dependence, uncomplicated; F17.210 Nicotine dependence, cigarettes, uncomplicated; J45.909 Unspecified asthma, uncomplicated; L30.9 Dermatitis, unspecified; D64.9 Anemia, unspecified; Z91.013 Allergy to seafood
CPT/HCPCS: 36415; 80053; 81003; 85027; 86593

== ENCOUNTER 2019-07-09 00:03 | Inpatient (IN) | payer OTHER ==
[2019-07-09 00:46] VITALS: BMI 28.3
--- NOTE | 2019-07-09 01:32 | HP ---
"CIWA Score Nausea/Vomitin-No Nausea/No Vomiting Muscle Tremors: 4-Moderate,w/Arms Extend Anxiety: 3 Agitation: 0-Normal Activity Paroxysmal Sweats: 1-Minimal Palms Moist Orientation: 0-Oriented Tacttile Disturbances: 1-Very Mild Itch/Numbness Auditory Disturbances: 0-None Visual Disturbances: 0-None Headache: 0-None Present CIWA-Ar Total Score: 9 - Admission Criteria OASAS Guidelines: Admission for Medically Managed Detox: Requires at least one of the followin. CIWA greater than 12 2. Seizures within the past 24 hours 3. Delirium tremens within the past 24 hours 4. Hallucinations within the past 24 hours 5. Acute intervention needed for co occurring medical disorder 6. Acute intervention needed for co occurring psychiatric disorder 7. Severe withdrawal that cannot be handled at a lower level of care (continued vomiting, continued diarrhea, abnormal vital signs) requiring intravenous medication and/or fluids 8. Admitting History and Physical - Past Medical History ...LMP: 11/19/18 - Smoking History Smoking history: Current every day smoker Have you smoked in the past 12 months: Yes Aproximately how many cigarettes per day: 10 - Alcohol/Substance Use Hx Alcohol Use: Yes Admission [facility] Chief Complaint: Here for detox Allergies/Adverse Reactions: Allergies Allergy/AdvReac Type Severity Reaction Status Date / Time shrimp Allergy Severe Hives Verified 07/09/19 00:41 No Known Drug Allergies Allergy Unknown Verified 12/03/18 08:25 NKDA Allergy Uncoded 12/03/18 08:25 History of Present Illness: 43 yo presents seeking detox for alcohol and cocaine. Discharged from [facility] on 12/07/18. Was able to maintain sobriety for four months. Patient w/multiple alcohol admissions presents w/ a CIWA of 9. Based on patient hx of usage will admit to detox as treatment benefits outweigh the risks. EVELYNE: 0.0 UTox: + [facility] Denies seizures, blackouts, overdoses. Alcohol use began at age 11. Currently drinking 1/5th vodka daily x 4 months. Last drink 07/08/19 @ 10:30 pm. Cocaine use began at age 19. Current smokes $50-70 daily x 3 years. Nicotine use began at age 12. Smokes 5-6 cig/day. PMHx: Asthma (last exacerbation 8 months ago); MHHx: Sometimes depression and anxiety. Not depressed at this time. Denies thoughts of harming self or others. SHx: Homeless. Unemployed. Denies legal issues. Search Terms: Harshal Pickering, 1975 Search Date: 07/09/2019 01:31:16 AM The Drug Utilization Report below displays all of the controlled substance prescriptions, if any, that your patient has filled in the last twelve months. The information displayed on this report is compiled from pharmacy submissions to the Department, and accurately reflects the information as submitted by the pharmacies. This report was requested by: Elza Guerra | Reference #: [id number] There are no results for the search terms that you entered. Exam Limitations: No Limitations - Ebola screening Have you traveled outside of the country in the last 21 days: No (N) Have you had contact with anyone from an Ebola affected area: No Have you been sick,other than usual withdrawal symptoms: No Do you have a fever: No - Review of Systems Constitutional: Diaphoresis (Sometimes at night when drinks heavily.), Changes in sleep (Difficulty staying asleep), Weight Stable EENT: reports: Blurred Vision, Dental Problems (Partials. Chews and swallows ok. ) Respiratory: reports: No Symptoms reported Cardiac: reports: No Symptoms Reported GI: reports: Diarrhea (Last episode 1 month ago) : reports: No Symptoms Reported Musculoskeletal: reports: Joint Pain ((R) knee) Integumentary: reports: No Symptoms Reported Neuro: reports: No Symptoms reported Endocrine: reports: Increased Thirst Hematology: reports: No Symptoms Reported Psychiatric: reports: Judgement Intact, Mood/Affect Appropiate, Orientated x3 Patient History - Patient Medical History Hx Anemia: No Hx Asthma: Yes (on albuterol inhaler) Hx Chronic Obstructive Pulmonary Disease (COPD): No Hx Cancer: No Hx Cardiac Disorders: No Hx Congestive Heart Failure: No Hx Hypertension: No Hx Hypercholesterolemia: No Hx Pacemaker: No HX Cerebrovascular Accident: No Hx Seizures: No Hx Dementia: No Hx Diabetes: No Hx Gastrointestinal Disorders: No Hx Liver Disease: No Hx Genitourinary Disorders: No Hx Sexually Transmitted Disorders: No Hx Renal Disease (ESRD): No Hx Thyroid Disease: No Hx Human Immunodeficiency Virus (HIV): No (last 04/03 negative) Hx Hepatitis C: No Hx Depression: No Hx Suicide Attempt: No Hx Bipolar Disorder: No Hx Schizophrenia: No - Patient Surgical History Past Surgical History: No Hx Neurologic Surgery: No Hx Cataract Extraction: No Hx Cardiac Surgery: No Hx Lung Surgery: No Hx Breast Surgery: No Hx Breast Biopsy: No Hx Abdominal Surgery: No Hx Appendectomy: No Hx Cholecystectomy: No Hx Genitourinary Surgery: No Hx Section: Yes (18 YEARS AGO) Hx Orthopedic Surgery: No Hx Hysterectomy: No Anesthesia Reaction: No - PPD History Previous Implant?: Yes Documented Results: Negative w/proof Implanted On Prior [facility] Admission?: Yes Date: 05/20/18 Results: 0 mm PPD to be Administered?: No - Reproductive History Patient is a Female of Child Bearing Age (11 -55 yrs old): Yes Last Menstrual Period: 05/30/19 Patient : No - Smoking Cessation Smoking history: Current every day smoker Have you smoked in the past 12 months: Yes Aproximately how many cigarettes per day: 5 Cigars Per Day: 0 Hx Chewing Tobacco Use: No Initiated information on smoking cessation: Yes 'Breaking Loose' booklet given: 07/09/19 - Substance & Tx. History Hx Alcohol Use: Yes Hx Substance Use: Yes Substance Use Type: Alcohol, Cocaine Hx Substance Use Treatment: Yes (detox, rehab) - Substances abused Alcohol Substance route: Oral Frequency: Daily Amount used: 1 [place] Age of first use: 11 Date of last use: 07/08/19 Cocaine Substance route: Smoking Frequency: Daily Amount used: $50-100 Age of first use: 19 Date of last use: 07/08/19 Admission Physical Exam BHS - Vital Signs Vital Signs: Vital Signs - 24 hr 07/09/19 07/09/19 00:43 01:06 Temperature 97.7 F 97.7 F Pulse Rate 76 76 Respiratory 16 16 Rate Blood Pressure 134/82 134/82 - Physical General Appearance: Yes: Nourished, Mild Distress, Tremorous (Mild) HEENTM: Yes: EOMI, Hearing grossly Normal, Normocephalic, Normal Voice, GRECIA Respiratory: Yes: Lungs Clear (pulse ox = 99 %), Normal Breath Sounds, No Respiratory Distress Neck: Yes: No masses,lesions,Nodules, Supple Breast: Yes: Breast Exam Deferred Cardiology: Yes: Regular Rhythm, Regular Rate, S1, S2 Abdominal: Yes: Non Tender, Flat, Soft, Increased Bowel Sounds Genitourinary: Yes: Within Normal Limits Back: Yes: Normal Inspection Musculoskeletal: Yes: full range of Motion, Gait Steady Extremities: Yes: Normal Capillary Refill (Peripheral pulses +) 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, Fully Oriented, Alert, Motor Strength 5/5 Integumentary: Yes: Normal Color, Warm, Other (Dry skin w/ decreased turgor) Lymphatic: Yes: Within Normal Limits - Diagnostic (1) At risk for dehydration Current Visit: Yes Status: Acute (2) Alcohol dependence with uncomplicated withdrawal Current Visit: Yes Status: Acute (3) Cocaine dependence, uncomplicated Current Visit: No Status: Chronic (4) Eczema of both hands Current Visit: Yes Status: Chronic (5) GERD (gastroesophageal reflux disease) Current Visit: Yes Status: Chronic Qualifiers: Esophagitis presence: without esophagitis Qualified Code(s): K21.9 - Gastro -esophageal reflux disease without esophagitis (6) Nicotine dependence Current Visit: Yes Status: Chronic Qualifiers: Nicotine product type: cigarettes Substance use status: uncomplicated Qualified Code(s): F17.210 - Nicotine dependence, cigarettes, uncomplicated Cleared for Admission S - Detox or Rehab [facility] Level of Care: Medically Managed Detox Regimen/Protocol: Valium Claeared for Rehab Admission: No Breathalyzer - Breathalyzer Breathalyzer: 0 POC Urine test - Test device test lot number: [id number] Expiration date: 04/16/20 - Control test control: Yes - Result Urine Test Results: Negative - NO line present Urine Drug Screen - Test Device Lot number: [id number] Expiration date: 03/16/21 - Control Is test valid?: Yes - Results Drug screen NEGATIVE: No Urine drug screen results: [facility]-Cocaine Inpatient Rehab Admission - Rehab Decision to Admit Inpatient rehab admission?: No"
[2019-07-09] MEDS ORDERED: ACETAMINOPHEN 325 MG TABLET (FP) PO PRN ×2 (02:20)
[2019-07-09] MEDS ORDERED: MELATONIN 5 MG TABLETS PO PRN (02:20)
[2019-07-09] MEDS ORDERED: MENTHOL/PHENOL 1 EACH UD MM PRN (02:20)
[2019-07-09] MEDS ORDERED: BISMUTH SUBSALICYLATE 524 MG/30 ML UD PO PRN (02:20)
[2019-07-09] MEDS ORDERED: MAGNESIUM CITRATE 300 ML BOTTLE PO PRN (02:20)
[2019-07-09] MEDS ORDERED: diazePAM 5 MG TABLET PO PRN (02:20)
[2019-07-09] MEDS ORDERED: NICOTINE POLACRILEX 2 MG GUM BUC PRN (02:20)
[2019-07-09] MEDS ORDERED: METHOCARBAMOL 500 MG TABLET PO PRN (02:20)
[2019-07-09] MEDS ORDERED: MAGNESIUM HYDROX 2400MG/30ML ORAL SUSPENSION 30 ML CUP PO PRN (02:20)
[2019-07-09] MEDS ORDERED: IBUPROFEN 400 MG TABLET (FP) PO PRN (02:20)
[2019-07-09] MEDS ORDERED: MAG HYDROX/AL HYDROX/SIMETH 30 ML UNIT-DOSE CUP PO PRN (02:20)
[2019-07-09] MEDS ORDERED: ALBUTEROL SO4 8 GM HFA INHALER IH PRN (02:23)
[2019-07-09] MEDS: diazePAM 5 MG TABLET PO SCH ×3 (05:50→22:10)
[2019-07-09] MEDS: PRENATAL VITAMINS W/ FOLIC ACID TABLET (FP) PO SCH (10:41)
[2019-07-09] MEDS: THIAMINE HCL 100 MG TABLET (FP) PO SCH (22:10)
[2019-07-10] MEDS: diazePAM 5 MG TABLET PO SCH ×2 (05:56→17:52)
[2019-07-10] MEDS: PRENATAL VITAMINS W/ FOLIC ACID TABLET (FP) PO SCH (10:17)
[2019-07-10] MEDS ORDERED: diazePAM 5 MG TABLET PO PRN (11:42)
--- NOTE | 2019-07-10 11:48 | PN ---
S CIWA - CIWA Score Nausea/Vomitin Muscle Tremors: 4-Moderate,w/Arms Extend Anxiety: 3 Agitation: 1-Slight > Activity Paroxysmal Sweats: 2 Orientation: 0-Oriented Tacttile Disturbances: 1-Very Mild Itch/Numbness Auditory Disturbances: 0-None Visual Disturbances: 0-None Headache: 0-None Present CIWA-Ar Total Score: 13 BHS Progress Note (SOAP) Subjective: 43 years old female admitted on 07/09/19 for alcohol withdrawal sx management treated with valium detox regimen ate breakfast ambulating on hallway discuss aftercare with staff Objective: 07/10/19 11:48 Vital Signs Temperature 97.7 F 07/10/19 09:42 Pulse Rate 70 07/10/19 09:42 Respiratory Rate 18 07/10/19 09:42 Blood Pressure 133/84 07/10/19 09:42 O2 Sat by Pulse Oximetry (%) 07/10/19 11:49 lab pending Assessment: 07/10/19 11:49 alcohol withdrawal sx Plan: continue valium detox regimen
[2019-07-10 12:14] LABS: HEMATOCRIT 31.5 % (32.4-45.2); HEMOGLOBIN 10.4 GM/dL (10.7-15.3); MCH 32.1 pg (25.7-33.7); MCHC 32.9 g/dl (32.0-36.0); MEAN CELL VOLUME 97.4 fl (80-96); MEAN PLT VOLUME 10.1 fl (7.5-11.1); PLATELET COUNT 198 K/MM3 (134-434); RBC 3.24 M/mm3 (3.60-5.2); RDW 16.1 % (11.6-15.6)
[2019-07-10 13:16] LABS: BILIRUBIN,TOTAL 0.2 mg/dL (0.2-1); BLOOD UREA NITROGEN 13.3 mg/dL (7-18); CALCIUM 8.1 mg/dL (8.5-10.1); CREATININE 0.9 mg/dL (0.55-1.3); POTASSIUM 4.2 mmol/L (3.5-5.1); TOT PROT 5.8 g/dl (6.4-8.2)
[2019-07-10] MEDS: THIAMINE HCL 100 MG TABLET (FP) PO SCH (21:55)
[2019-07-11] MEDS ORDERED: diazePAM 5 MG TABLET PO ONE (06:00)
[2019-07-11 09:25] VITALS: BP 124/84; PULSE 82; TEMP 96.6
--- NOTE | 2019-07-11 14:53 | DS ---
[facility] Detox Discharge Summary Admission Date: 07/09/19 Discharge Date: 07/11/19 - History Present History: Alcohol Dependence Additional Comments: 43 years old female admitted on 07/09/19 for alcohol withdrawal sx management treated with valium detox regimen patient is alert oriented x 3 cardiac s1s2 regular rate rhythm respiratory clear lung bilaterally on auscultation abdomen soft no rebound tenderness - Physical Exam Results Vital Signs: Vital Signs Temperature 96.6 F L 07/11/19 09:25 Pulse Rate 82 07/11/19 09:25 Respiratory Rate 18 07/11/19 09:25 Blood Pressure 124/84 07/11/19 09:25 O2 Sat by Pulse Oximetry (%) Pertinent Admission Physical Exam Findings: alcohol withdrawal sx Laboratory Last Values WBC 4.0 K/mm3 (4.0-10.0) 07/10/19 07:35 RBC 3.24 M/mm3 (3.60-5.2) L 07/10/19 07:35 Hgb 10.4 GM/dL (10.7-15.3) L 07/10/19 07:35 Hct 31.5 % (32.4-45.2) L 07/10/19 07:35 MCV 97.4 fl (80-96) H 07/10/19 07:35 MCH 32.1 pg (25.7-33.7) 07/10/19 07:35 MCHC 32.9 g/dl (32.0-36.0) 07/10/19 07:35 RDW 16.1 % (11.6-15.6) H 07/10/19 07:35 Plt Count 198 K/MM3 (134-434) 07/10/19 07:35 MPV 10.1 fl (7.5-11.1) 07/10/19 07:35 Sodium 140 mmol/L (136-145) 07/10/19 07:35 Potassium 4.2 mmol/L (3.5-5.1) 07/10/19 07:35 Chloride 110 mmol/L (98-107) H 07/10/19 07:35 Carbon Dioxide 28 mmol/L (21-32) 07/10/19 07:35 Anion Gap 3 MMOL/L (8-16) L 07/10/19 07:35 BUN 13.3 mg/dL (7-18) 07/10/19 07:35 Creatinine 0.9 mg/dL (0.55-1.3) 07/10/19 07:35 Est GFR (CKD-EPI)AfAm 89.50 07/10/19 07:35 Est GFR (CKD-EPI)NonAf 77.22 07/10/19 07:35 Random Glucose 105 mg/dL (74-106) 07/10/19 07:35 Calcium 8.1 mg/dL (8.5-10.1) L 07/10/19 07:35 Total Bilirubin 0.2 mg/dL (0.2-1) 07/10/19 07:35 AST 12 U/L (15-37) L 07/10/19 07:35 ALT 13 U/L (13-61) 07/10/19 07:35 Alkaline Phosphatase 37 U/L (45-117) L 07/10/19 07:35 Total Protein 5.8 g/dl (6.4-8.2) L 07/10/19 07:35 Albumin 3.0 g/dl (3.4-5.0) L 07/10/19 07:35 lab noted - Treatment Hospital Course: Detox Protocol Followed, Detoxed Safely, Responded well, Discharged Condition Good, Rehab Referral Accepted Patient has Accepted a Rehab Referral to: community support approach - Medication Discharge Medications: Ambulatory Orders Albuterol Sulfate Inhaler - [Ventolin HFA Inhaler -] 1 - 2 inh PO Q4H PRN #1 inhaler 12/06/18 - Diagnosis (1) Alcohol dependence with uncomplicated withdrawal Status: Acute (2) Asthma Status: Chronic Qualifiers: Asthma severity: mild Asthma persistence: intermittent Asthma complication type: uncomplicated Qualified Code(s): J45.20 - Mild intermittent asthma, uncomplicated (3) Eczema of both hands Status: Chronic (4) GERD (gastroesophageal reflux disease) Status: Chronic Qualifiers: Esophagitis presence: without esophagitis Qualified Code(s): K21.9 - Gastro -esophageal reflux disease without esophagitis (5) Nicotine dependence Status: Acute Qualifiers: Nicotine product type: cigarettes Substance use status: in withdrawal Qualified Code(s): F17.213 - Nicotine dependence, cigarettes, with withdrawal - AMA Did Patient Leave Against Medical Advice: No CIWA Score - CIWA Score Nausea/Vomitin-Mild Nausea/No Vomiting Muscle Tremors: 3 Anxiety: 2 Agitation: 0-Normal Activity Paroxysmal Sweats: 1-Minimal Palms Moist Orientation: 0-Oriented Tacttile Disturbances: 0-None Auditory Disturbances: 0-None Visual Disturbances: 0-None Headache: 0-None Present CIWA-Ar Total Score: 7
== END 2019-07-11 09:26 | disposition home or self-care (01) | DRG 774 ==
LOC: YASAS 00:03 → Y3N 02:10
PROVIDERS: ADMIT Allergy & Immunology; ATTEND Allergy & Immunology
PROC: HZ2ZZZZ Detoxification Services for Substance Abuse Treatment (ICD-10-PCS; principal; 2019-07-09)
DX: F10.230 Alcohol dependence with withdrawal, uncomplicated (principal); F14.20 Cocaine dependence, uncomplicated; F17.210 Nicotine dependence, cigarettes, uncomplicated; J45.20 Mild intermittent asthma, uncomplicated; K21.9 Gastro-esophageal reflux disease without esophagitis; L30.9 Dermatitis, unspecified; Z91.89 Other specified personal risk factors, not elsewhere classified; Z91.013 Allergy to seafood
CPT/HCPCS: 36415; 80053; 81025; 85027

== ENCOUNTER 2020-11-02 07:17 | Inpatient (IN) | payer OTHER ==
[2020-11-02] MEDS ORDERED: ONDANSETRON *ODT* 4 MG TABLET SL PRN (09:37)
[2020-11-02] MEDS ORDERED: chlordiazePOXIDE HCL 25 MG CAPSULE PO PRN (09:37)
[2020-11-02] MEDS ORDERED: MAG HYDROX/AL HYDROX/SIMETH 30 ML UNIT-DOSE CUP PO PRN (09:37)
[2020-11-02] MEDS ORDERED: NICOTINE POLACRILEX 2 MG GUM BUC PRN (09:37)
[2020-11-02] MEDS ORDERED: BISMUTH SUBSALICYLATE 524 MG/30 ML UD PO PRN (09:37)
[2020-11-02] MEDS ORDERED: ACETAMINOPHEN 325 MG TABLET (FP) PO PRN ×2 (09:37)
[2020-11-02] MEDS ORDERED: MENTHOL/PHENOL 1 EACH UD MM PRN (09:37)
[2020-11-02] MEDS ORDERED: MAGNESIUM HYDROX 2400MG/30ML ORAL SUSPENSION 30 ML CUP PO PRN (09:37)
[2020-11-02] MEDS ORDERED: MAGNESIUM CITRATE 300 ML BOTTLE PO PRN (09:37)
[2020-11-02] MEDS ORDERED: METHOCARBAMOL 500 MG TABLET PO PRN (09:37)
[2020-11-02] MEDS ORDERED: IBUPROFEN 400 MG TABLET (FP) PO PRN (09:37)
[2020-11-02] MEDS ORDERED: ALBUTEROL SO4 HFA INHALER IH PRN (09:39)
[2020-11-02 10:57] VITALS: BMI 29.0
[2020-11-02 12:05] LABS: HEMATOCRIT 37.2 % (32.4-45.2); HEMOGLOBIN 12.4 GM/dL (10.7-15.3); MCH 33.3 pg (25.7-33.7); MCHC 33.3 g/dl (32.0-36.0); MEAN CELL VOLUME 100.2 fl (80-96); MEAN PLT VOLUME 10.1 fl (7.5-11.1); PLATELET COUNT 233 K/MM3 (134-434); RBC 3.71 M/mm3 (3.60-5.2); RDW 15.7 % (11.6-15.6)
[2020-11-02 12:27] LABS: BLOOD UREA NITROGEN 11.9 mg/dL (7-18); CALCIUM 9.6 mg/dL (8.5-10.1)
[2020-11-02 12:31] LABS: BILIRUBIN,TOTAL 0.4 mg/dL (0.2-1); CREATININE 0.9 mg/dL (0.55-1.3)
[2020-11-02] MEDS: chlordiazePOXIDE HCL 25 MG CAPSULE PO SCH ×3 (13:10→22:50)
[2020-11-02] MEDS: PRENATAL VITAMINS W/ FOLIC ACID TABLET (FP) PO SCH (13:10)
[2020-11-02] MEDS: hydrOXYzine PAMOATE 25 MG CAPSULE (FP) PO SCH ×4 (13:10→22:50)
[2020-11-02] MEDS: NICOTINE 14 MG/24 HOURS TOPICAL PATCH TD SCH (13:12)
[2020-11-02 13:21] LABS: HIV INTERPRETATION NEGATIVE (NEGATIVE)
[2020-11-02] MEDS: MELATONIN 5 MG TABLETS PO SCH (22:50)
[2020-11-02] MEDS: THIAMINE HCL 100 MG TABLET (FP) PO SCH (22:51)
[2020-11-03] MEDS: hydrOXYzine PAMOATE 25 MG CAPSULE (FP) PO SCH ×5 (06:22→22:46)
[2020-11-03] MEDS: chlordiazePOXIDE HCL 25 MG CAPSULE PO SCH ×4 (06:22→22:46)
[2020-11-03] MEDS ORDERED: MASKS NR ONE (10:40)
[2020-11-03] MEDS: NICOTINE 14 MG/24 HOURS TOPICAL PATCH TD SCH (10:41)
[2020-11-03] MEDS: PRENATAL VITAMINS W/ FOLIC ACID TABLET (FP) PO SCH (10:41)
[2020-11-03] MEDS ORDERED: FLU VACCINE (FLULAVAL) PF 60 MCG/0.5 ML SYRINGE 2020-2021 IM ONE (12:00)
[2020-11-03] MEDS: THIAMINE HCL 100 MG TABLET (FP) PO SCH (22:45)
[2020-11-03] MEDS: MELATONIN 5 MG TABLETS PO SCH (22:46)
[2020-11-04] MEDS: chlordiazePOXIDE HCL 25 MG CAPSULE PO SCH ×4 (06:52→22:48)
[2020-11-04] MEDS: hydrOXYzine PAMOATE 25 MG CAPSULE (FP) PO SCH ×5 (06:53→22:48)
[2020-11-04] MEDS: PRENATAL VITAMINS W/ FOLIC ACID TABLET (FP) PO SCH (10:35)
[2020-11-04] MEDS: NICOTINE 14 MG/24 HOURS TOPICAL PATCH TD SCH (10:35)
[2020-11-04] MEDS: MELATONIN 5 MG TABLETS PO SCH (22:47)
[2020-11-04] MEDS: THIAMINE HCL 100 MG TABLET (FP) PO SCH (22:48)
[2020-11-05] MEDS ORDERED: chlordiazePOXIDE HCL 10 MG CAPSULE PO PRN
[2020-11-05] MEDS: chlordiazePOXIDE HCL 10 MG CAPSULE PO SCH ×4 (06:19→22:21)
[2020-11-05] MEDS: hydrOXYzine PAMOATE 25 MG CAPSULE (FP) PO SCH ×5 (06:20→22:22)
[2020-11-05] MEDS: NICOTINE 14 MG/24 HOURS TOPICAL PATCH TD SCH (10:49)
[2020-11-05] MEDS: PRENATAL VITAMINS W/ FOLIC ACID TABLET (FP) PO SCH (10:52)
[2020-11-05] MEDS: THIAMINE HCL 100 MG TABLET (FP) PO SCH (22:21)
[2020-11-05] MEDS: MELATONIN 5 MG TABLETS PO SCH (22:21)
[2020-11-06] MEDS: hydrOXYzine PAMOATE 25 MG CAPSULE (FP) PO SCH ×5 (06:27→22:34)
[2020-11-06] MEDS: chlordiazePOXIDE HCL 10 MG CAPSULE PO SCH ×2 (06:27→18:08)
[2020-11-06] MEDS: NICOTINE 14 MG/24 HOURS TOPICAL PATCH TD SCH (10:58)
[2020-11-06] MEDS: PRENATAL VITAMINS W/ FOLIC ACID TABLET (FP) PO SCH (10:58)
[2020-11-06] MEDS: THIAMINE HCL 100 MG TABLET (FP) PO SCH (22:34)
[2020-11-06] MEDS: MELATONIN 5 MG TABLETS PO SCH (22:34)
[2020-11-07] MEDS ORDERED: chlordiazePOXIDE HCL 10 MG CAPSULE PO ONE (05:00)
[2020-11-07] MEDS: hydrOXYzine PAMOATE 25 MG CAPSULE (FP) PO SCH (06:14)
[2020-11-07 06:53] VITALS: BP 134/73; PULSE 73; TEMP 97.3
== END 2020-11-07 09:38 | disposition home or self-care (01) | DRG 774 ==
LOC: YASAS 07:17 → Y6N 12:18
PROVIDERS: ADMIT Allergy & Immunology; ATTEND Allergy & Immunology
PROC: HZ2ZZZZ Detoxification Services for Substance Abuse Treatment (ICD-10-PCS; principal; 2020-11-02)
DX: F10.230 Alcohol dependence with withdrawal, uncomplicated (principal); F14.20 Cocaine dependence, uncomplicated; F17.210 Nicotine dependence, cigarettes, uncomplicated; F19.282 Other psychoactive substance dependence with psychoactive substance-induced sleep disorder; F19.24 Other psychoactive substance dependence with psychoactive substance-induced mood disorder; E16.2 Hypoglycemia, unspecified; J45.909 Unspecified asthma, uncomplicated; L30.9 Dermatitis, unspecified; Z86.12 Personal history of poliomyelitis; Z91.410 Personal history of adult physical and sexual abuse; Z56.0 Unemployment, unspecified; Z59.0 Homelessness; Z91.013 Allergy to seafood
CPT/HCPCS: 36415; 80053; 81025; 82962; 85027; 86780; 87389; C9803; U0003

== ENCOUNTER 2021-05-15 05:20 | Inpatient (IN) | payer OTHER ==
[2021-05-15 06:05] VITALS: BMI 29.5
[2021-05-15] MEDS ORDERED: diazePAM 5 MG TABLET PO PRN (09:07)
[2021-05-15] MEDS ORDERED: METHOCARBAMOL 500 MG TABLET PO PRN (09:43)
[2021-05-15] MEDS ORDERED: NICOTINE 10 MG CARTRIDGE (INHALER) IH PRN (09:43)
[2021-05-15] MEDS ORDERED: ONDANSETRON *ODT* 4 MG TABLET SL PRN (09:43)
[2021-05-15] MEDS ORDERED: BISMUTH SUBSALICYLATE 524 MG/30 ML PO PRN (09:43)
[2021-05-15] MEDS ORDERED: MAGNESIUM HYDROX 2400MG/30ML ORAL SUSPENSION 30 ML CUP PO PRN (09:43)
[2021-05-15] MEDS ORDERED: MAG HYDROX/AL HYDROX/SIMETH 30 ML UNIT-DOSE CUP PO PRN (09:43)
[2021-05-15] MEDS ORDERED: MENTHOL/PHENOL 1 EACH UD MM PRN (09:43)
[2021-05-15] MEDS ORDERED: IBUPROFEN 400 MG TABLET (FP) PO PRN (09:43)
[2021-05-15] MEDS ORDERED: MAGNESIUM CITRATE 300 ML BOTTLE PO PRN (09:43)
[2021-05-15] MEDS ORDERED: ACETAMINOPHEN 325 MG TABLET (FP) PO PRN ×2 (09:43)
[2021-05-15] MEDS ORDERED: diazePAM 5 MG TABLET ONE (11:05)
[2021-05-15] MEDS ORDERED: hydrOXYzine PAMOATE 25 MG CAPSULE (FP) PO ONE (11:05)
[2021-05-15] MEDS: hydrOXYzine PAMOATE 25 MG CAPSULE (FP) PO SCH ×4 (11:12→22:19)
[2021-05-15] MEDS: diazePAM 5 MG TABLET PO SCH ×3 (11:12→22:20)
[2021-05-15] MEDS: PRENATAL VITAMINS W/ FOLIC ACID TABLET (FP) PO SCH (11:12)
[2021-05-15] MEDS ORDERED: FLU VACC QS2021-22(6MOS UP)/PF 60 MCG/0.5 ML SYRINGE IM ONE (12:00)
[2021-05-15 13:55] LABS: HEMATOCRIT 36.1 % (32.4-45.2); MCH 32.7 pg (25.7-33.7); MCHC 33.3 g/dl (32.0-36.0); MEAN CELL VOLUME 98.3 fl (80-96); MEAN PLT VOLUME 10.2 fl (7.5-11.1); PLATELET COUNT 180 10^3/uL (134-434); RBC 3.68 M/mm3 (3.60-5.2); RDW 15.5 % (11.6-15.6); WHITE BLOOD COUNT 3.3 K/mm3 (4.0-10.0)
[2021-05-15 14:16] LABS: BLOOD UREA NITROGEN 9.6 mg/dL (7-18); CALCIUM 8.7 mg/dL (8.5-10.1)
[2021-05-15 14:19] LABS: ALBUMIN 3.6 g/dl (3.4-5.0)
[2021-05-15 14:20] LABS: CREATININE 0.8 mg/dL (0.55-1.3)
[2021-05-15 14:21] LABS: BILIRUBIN,TOTAL 0.3 mg/dL (0.2-1)
[2021-05-15] MEDS: THIAMINE HCL 100 MG TABLET (FP) PO SCH (22:20)
[2021-05-15] MEDS: MELATONIN 5 MG TABLETS PO SCH (22:20)
[2021-05-16] MEDS: hydrOXYzine PAMOATE 25 MG CAPSULE (FP) PO SCH ×5 (06:06→22:43)
[2021-05-16] MEDS: diazePAM 5 MG TABLET PO SCH ×2 (06:06→10:43)
[2021-05-16] MEDS ORDERED: ALBUTEROL SO4 HFA INHALER IH PRN (08:00)
[2021-05-16] MEDS: PRENATAL VITAMINS W/ FOLIC ACID TABLET (FP) PO SCH (10:43)
[2021-05-16] MEDS ORDERED: FLU VACC QS2021-22(6MOS UP)/PF 60 MCG/0.5 ML SYRINGE IM ONE (12:00)
[2021-05-16] MEDS ORDERED: LORazepam 1 MG TABLET PO PRN (13:23)
[2021-05-16] MEDS: POTASSIUM CHLORIDE ORAL LIQUID 20 MEQ/15 ML PO SCH ×2 (14:13→17:44)
[2021-05-16] MEDS: LORazepam 1 MG TABLET PO SCH ×2 (17:44→23:03)
[2021-05-16] MEDS: MELATONIN 5 MG TABLETS PO SCH (22:43)
[2021-05-16] MEDS: THIAMINE HCL 100 MG TABLET (FP) PO SCH (22:43)
[2021-05-17] MEDS ORDERED: diazePAM 5 MG TABLET PO SCH (06:00)
[2021-05-17] MEDS: hydrOXYzine PAMOATE 25 MG CAPSULE (FP) PO SCH ×5 (06:21→22:40)
[2021-05-17] MEDS: LORazepam 0.5 MG TABLET PO SCH ×3 (06:21→22:39)
[2021-05-17] MEDS: PRENATAL VITAMINS W/ FOLIC ACID TABLET (FP) PO SCH (10:30)
[2021-05-17] MEDS: THIAMINE HCL 100 MG TABLET (FP) PO SCH (22:40)
[2021-05-17] MEDS: MELATONIN 5 MG TABLETS PO SCH (22:40)
[2021-05-18] MEDS ORDERED: LORazepam 0.5 MG TABLET PO PRN (00:01)
[2021-05-18] MEDS ORDERED: diazePAM 5 MG TABLET PO SCH (06:00)
[2021-05-18] MEDS: LORazepam 0.5 MG TABLET PO SCH ×2 (06:01→17:56)
[2021-05-18] MEDS: hydrOXYzine PAMOATE 25 MG CAPSULE (FP) PO SCH ×5 (06:01→22:20)
[2021-05-18] MEDS: PRENATAL VITAMINS W/ FOLIC ACID TABLET (FP) PO SCH (10:10)
[2021-05-18] MEDS: THIAMINE HCL 100 MG TABLET (FP) PO SCH (22:20)
[2021-05-18] MEDS: MELATONIN 5 MG TABLETS PO SCH (22:20)
[2021-05-19] MEDS ORDERED: LORazepam 0.5 MG TABLET PO ONE (05:00)
[2021-05-19] MEDS ORDERED: diazePAM 5 MG TABLET PO ONE (06:00)
[2021-05-19] MEDS: hydrOXYzine PAMOATE 25 MG CAPSULE (FP) PO SCH (06:06)
[2021-05-19 06:33] VITALS: BP 122/74; PULSE 68; TEMP 97.4
== END 2021-05-19 09:30 | disposition home or self-care (01) | DRG 774 ==
LOC: YASAS 05:20 → Y6N 11:14
PROVIDERS: ADMIT Allergy & Immunology; ATTEND Allergy & Immunology
PROC: HZ2ZZZZ Detoxification Services for Substance Abuse Treatment (ICD-10-PCS; principal; 2021-05-15)
DX: F10.230 Alcohol dependence with withdrawal, uncomplicated (principal); F14.20 Cocaine dependence, uncomplicated; F12.20 Cannabis dependence, uncomplicated; F17.210 Nicotine dependence, cigarettes, uncomplicated; F19.282 Other psychoactive substance dependence with psychoactive substance-induced sleep disorder; F32.9 Major depressive disorder, single episode, unspecified; D72.819 Decreased white blood cell count, unspecified; J45.20 Mild intermittent asthma, uncomplicated; K21.9 Gastro-esophageal reflux disease without esophagitis; L30.9 Dermatitis, unspecified; R74.01 Elevation of levels of liver transaminase levels; Z86.2 Personal history of diseases of the blood and blood-forming organs and certain disorders involving the immune mechanism; Z59.01 Sheltered homelessness
CPT/HCPCS: 36415; 80053; 81025; 82962; 85027; 86780; 90686; C9803; G0008; U0003; U0005

== ENCOUNTER 2021-08-27 05:47 | Inpatient (IN) | payer OTHER ==
[2021-08-27 06:57] VITALS: BMI 28.0
[2021-08-27] MEDS ORDERED: MENTHOL/PHENOL 1 EACH UD MM PRN (09:52)
[2021-08-27] MEDS ORDERED: NICOTINE 10 MG CARTRIDGE (INHALER) IH PRN (09:52)
[2021-08-27] MEDS ORDERED: ONDANSETRON *ODT* 4 MG TABLET SL PRN (09:52)
[2021-08-27] MEDS ORDERED: ACETAMINOPHEN 325 MG TABLET (FP) PO PRN (09:52)
[2021-08-27] MEDS ORDERED: MAGNESIUM HYDROX 2400MG/30ML ORAL SUSPENSION 30 ML CUP PO PRN (09:52)
[2021-08-27] MEDS ORDERED: MAGNESIUM CITRATE 300 ML BOTTLE PO PRN (09:52)
[2021-08-27] MEDS ORDERED: BISMUTH SUBSALICYLATE 262 MG/15 ML BTL PO PRN (09:52)
[2021-08-27] MEDS ORDERED: IBUPROFEN 400 MG TABLET (FP) PO PRN (09:52)
[2021-08-27] MEDS ORDERED: METHOCARBAMOL 500 MG TABLET PO PRN (09:52)
[2021-08-27] MEDS ORDERED: MAG HYDROX/AL HYDROX/SIMETH 30 ML UNIT-DOSE CUP PO PRN (09:52)
[2021-08-27] MEDS ORDERED: LORazepam 1 MG TABLET PO PRN (09:52)
[2021-08-27] MEDS: PRENATAL VITAMINS W/ FOLIC ACID TABLET (FP) PO SCH (10:53)
[2021-08-27] MEDS: hydrOXYzine PAMOATE 25 MG CAPSULE (FP) PO SCH ×4 (10:53→22:35)
[2021-08-27] MEDS: LORazepam 2 MG TABLET PO SCH ×3 (10:53→22:35)
[2021-08-27] MEDS: NICOTINE 21 MG/24 HOURS TOPICAL PATCH TD SCH (14:17)
[2021-08-27 15:55] LABS: HEMATOCRIT 38.9 % (32.4-45.2); MCH 33.1 pg (25.7-33.7); MCHC 33.6 g/dl (32.0-36.0); MEAN CELL VOLUME 98.6 fl (80-96); MEAN PLT VOLUME 10.2 fl (7.5-11.1); PLATELET COUNT 196 10^3/uL (134-434); RBC 3.94 M/mm3 (3.60-5.2); RDW 14.8 % (11.6-15.6); WHITE BLOOD COUNT 4.8 K/mm3 (4.0-10.0)
[2021-08-27 16:09] LABS: CALCIUM 9.4 mg/dL (8.5-10.1)
[2021-08-27 16:10] LABS: ALBUMIN 4.1 g/dl (3.4-5.0)
[2021-08-27 16:13] LABS: CREATININE 1.2 mg/dL (0.55-1.3)
[2021-08-27 16:15] LABS: BILIRUBIN,TOTAL 0.3 mg/dL (0.2-1); TOT PROT 7.5 g/dl (6.4-8.2)
[2021-08-27] MEDS: THIAMINE HCL 100 MG TABLET (FP) PO SCH (22:35)
[2021-08-27] MEDS: MELATONIN 5 MG TABLETS PO SCH (22:35)
[2021-08-28] MEDS: hydrOXYzine PAMOATE 25 MG CAPSULE (FP) PO SCH ×5 (06:05→22:47)
[2021-08-28] MEDS: LORazepam 2 MG TABLET PO SCH ×4 (06:05→22:47)
[2021-08-28] MEDS: NICOTINE 21 MG/24 HOURS TOPICAL PATCH TD SCH (10:17)
[2021-08-28] MEDS: PRENATAL VITAMINS W/ FOLIC ACID TABLET (FP) PO SCH (10:17)
[2021-08-28] MEDS: MELATONIN 5 MG TABLETS PO SCH (22:47)
[2021-08-28] MEDS: THIAMINE HCL 100 MG TABLET (FP) PO SCH (22:47)
[2021-08-29] MEDS: LORazepam 1 MG TABLET PO SCH ×4 (06:35→22:25)
[2021-08-29] MEDS: hydrOXYzine PAMOATE 25 MG CAPSULE (FP) PO SCH ×5 (06:35→22:25)
[2021-08-29] MEDS: NICOTINE 21 MG/24 HOURS TOPICAL PATCH TD SCH (10:24)
[2021-08-29] MEDS: PRENATAL VITAMINS W/ FOLIC ACID TABLET (FP) PO SCH (10:24)
[2021-08-29] MEDS ORDERED: ALBUTEROL SO4 HFA INHALER IH PRN (11:09)
[2021-08-29 11:18] LABS: GLUCOSE,FASTING 83 mg/dL (74-106); GLUCOSE,RANDOM 83 mg/dL (74-106)
[2021-08-29] MEDS: THIAMINE HCL 100 MG TABLET (FP) PO SCH (22:25)
[2021-08-29] MEDS: MELATONIN 5 MG TABLETS PO SCH (22:25)
[2021-08-30] MEDS ORDERED: LORazepam 0.5 MG TABLET PO PRN
[2021-08-30] MEDS: LORazepam 0.5 MG TABLET PO SCH ×4 (06:09→23:00)
[2021-08-30] MEDS: ACETAMINOPHEN 325 MG TABLET (FP) PO PRN (06:10)
[2021-08-30] MEDS: hydrOXYzine PAMOATE 25 MG CAPSULE (FP) PO SCH ×5 (06:10→23:00)
[2021-08-30] MEDS: NICOTINE 21 MG/24 HOURS TOPICAL PATCH TD SCH (10:08)
[2021-08-30] MEDS: PRENATAL VITAMINS W/ FOLIC ACID TABLET (FP) PO SCH (10:08)
[2021-08-30] MEDS: THIAMINE HCL 100 MG TABLET (FP) PO SCH (23:00)
[2021-08-30] MEDS: MELATONIN 5 MG TABLETS PO SCH (23:00)
[2021-08-31] MEDS ORDERED: LORazepam 0.5 MG TABLET PO ONE (05:00)
[2021-08-31] MEDS: hydrOXYzine PAMOATE 25 MG CAPSULE (FP) PO SCH (06:22)
[2021-08-31] MEDS: ACETAMINOPHEN 325 MG TABLET (FP) PO PRN (06:22)
[2021-08-31 07:18] VITALS: BP 105/65; PULSE 71; TEMP 96.9
== END 2021-08-31 10:07 | disposition home or self-care (01) | DRG 774 ==
LOC: YASAS 05:47 → Y3N 11:49
PROVIDERS: ADMIT Allergy & Immunology; ATTEND Allergy & Immunology
PROC: HZ2ZZZZ Detoxification Services for Substance Abuse Treatment (ICD-10-PCS; principal; 2021-08-27)
DX: F10.230 Alcohol dependence with withdrawal, uncomplicated (principal); F14.20 Cocaine dependence, uncomplicated; F12.20 Cannabis dependence, uncomplicated; F17.213 Nicotine dependence, cigarettes, with withdrawal; F41.8 Other specified anxiety disorders; F32.A Depression, unspecified; J45.20 Mild intermittent asthma, uncomplicated; K21.9 Gastro-esophageal reflux disease without esophagitis; L30.9 Dermatitis, unspecified; Z86.2 Personal history of diseases of the blood and blood-forming organs and certain disorders involving the immune mechanism; Z91.410 Personal history of adult physical and sexual abuse; Z91.013 Allergy to seafood; Z56.0 Unemployment, unspecified; Z59.01 Sheltered homelessness
CPT/HCPCS: 36415; 80053; 81025; 82947; 85027; 86780; C9803; U0003; U0005

== ENCOUNTER 2022-04-03 01:02 | Inpatient (IN) | payer OTHER ==
[2022-04-03 01:16] VITALS: BMI 29.4
[2022-04-03] MEDS ORDERED: ONDANSETRON *ODT* 4 MG TABLET SL PRN (01:52)
[2022-04-03] MEDS ORDERED: DICYCLOMINE HCL 10 MG CAPSULE PO PRN (01:52)
[2022-04-03] MEDS ORDERED: MAG HYDROX/AL HYDROX/SIMETH 30 ML UNIT-DOSE CUP PO PRN (01:52)
[2022-04-03] MEDS ORDERED: IBUPROFEN 600 MG TABLET (FP) PO PRN (01:52)
[2022-04-03] MEDS ORDERED: LOPERAMIDE HCL 2 MG CAPSULE PO PRN (01:52)
[2022-04-03] MEDS ORDERED: NICOTINE POLACRILEX 2 MG GUM BUC PRN (01:52)
[2022-04-03] MEDS ORDERED: BENZOCAINE/MENTHOL (CHLORASEPTIC ) LOZENGE MM PRN (01:52)
[2022-04-03] MEDS ORDERED: METHOCARBAMOL 500 MG TABLET PO PRN (01:52)
[2022-04-03] MEDS ORDERED: MAGNESIUM CITRATE 300 ML BOTTLE PO PRN (01:52)
[2022-04-03] MEDS ORDERED: MAGNESIUM HYDROX 2400MG/30ML ORAL SUSPENSION 30 ML CUP PO PRN (01:52)
[2022-04-03] MEDS ORDERED: ACETAMINOPHEN 325 MG TABLET (FP) PO PRN ×2 (01:52)
[2022-04-03] MEDS ORDERED: IBUPROFEN 400 MG TABLET (FP) PO PRN (01:52)
[2022-04-03] MEDS ORDERED: BISMUTH SUBSALICYLATE 524 MG/30 ML PO PRN (01:52)
[2022-04-03] MEDS ORDERED: ALBUTEROL SO4 HFA INHALER IH ONE (08:06)
[2022-04-03] MEDS: ALBUTEROL SO4 HFA INHALER IH PRN ×2 (08:10→17:23)
[2022-04-03] MEDS ORDERED: TUBERCULIN PPD 5 TU/0.1ML VIAL ID ONE (11:10)
[2022-04-03] MEDS: NICOTINE 21 MG/24 HOURS TOPICAL PATCH TD SCH (11:13)
[2022-04-03] MEDS: PRENATAL VITAMINS W/ FOLIC ACID TABLET (FP) PO SCH (11:13)
[2022-04-03] MEDS: THIAMINE HCL 100 MG TABLET (FP) PO SCH (22:00)
[2022-04-03] MEDS: MELATONIN 5 MG TABLETS PO SCH (22:00)
[2022-04-04 07:10] VITALS: RESP 18
[2022-04-04] MEDS: NICOTINE 21 MG/24 HOURS TOPICAL PATCH TD SCH (10:12)
[2022-04-04] MEDS: PRENATAL VITAMINS W/ FOLIC ACID TABLET (FP) PO SCH (10:12)
[2022-04-04 10:28] LABS: HEMATOCRIT 36.8 % (32.4-45.2); MCH 32.9 pg (25.7-33.7); MCHC 32.7 g/dl (32.0-36.0); MEAN CELL VOLUME 100.8 fl (80-96); MEAN PLT VOLUME 10.2 fl (7.5-11.1); PLATELET COUNT 189 10^3/uL (134-434); RBC 3.65 M/mm3 (3.60-5.2); RDW 13.8 % (11.6-15.6); WHITE BLOOD COUNT 4.1 K/mm3 (4.0-10.0)
[2022-04-04 10:30] LABS: CALCIUM 8.8 mg/dL (8.5-10.1)
[2022-04-04 10:31] LABS: ALBUMIN 3.2 g/dl (3.4-5.0); BLOOD UREA NITROGEN 11.2 mg/dL (7-18)
[2022-04-04 10:34] LABS: CREATININE 0.9 mg/dL (0.55-1.3)
[2022-04-04 10:35] LABS: TOT PROT 6.6 g/dl (6.4-8.2)
[2022-04-04 10:39] LABS: BILIRUBIN,TOTAL 0.4 mg/dL (0.2-1)
[2022-04-04] MEDS: ALBUTEROL SO4 HFA INHALER IH PRN (20:54)
[2022-04-04] MEDS: MELATONIN 5 MG TABLETS PO SCH (21:55)
[2022-04-04] MEDS: THIAMINE HCL 100 MG TABLET (FP) PO SCH (21:55)
[2022-04-05 10:21] LABS: PH,URINE 6.5 (5.0-8.0); URINE APPEARANCE CLEAR; URINE BILIRUBIN NEGATIVE (NEGATIVE); URINE COLOR YELLOW; URINE GLUCOSE (UA) NEGATIVE (NEGATIVE); URINE KETONE NEGATIVE (NEGATIVE); URINE LEUK ESTERASE NEGATIVE (NEGATIVE); URINE NITRITE NEGATIVE (NEGATIVE); URINE PROTEIN NEGATIVE (NEGATIVE); URINE UROBILINOGEN 0.2 mg/dL (0.2-1.0)
[2022-04-05] MEDS: PRENATAL VITAMINS W/ FOLIC ACID TABLET (FP) PO SCH (10:29)
[2022-04-05] MEDS: NICOTINE 21 MG/24 HOURS TOPICAL PATCH TD SCH (10:30)
[2022-04-05] MEDS: MELATONIN 5 MG TABLETS PO SCH (22:02)
[2022-04-05] MEDS: THIAMINE HCL 100 MG TABLET (FP) PO SCH (22:02)
[2022-04-06] MEDS: NICOTINE 21 MG/24 HOURS TOPICAL PATCH TD SCH (10:13)
[2022-04-06] MEDS: PRENATAL VITAMINS W/ FOLIC ACID TABLET (FP) PO SCH (10:13)
[2022-04-07] MEDS: NICOTINE 21 MG/24 HOURS TOPICAL PATCH TD SCH (10:42)
[2022-04-07] MEDS: PRENATAL VITAMINS W/ FOLIC ACID TABLET (FP) PO SCH (10:42)
[2022-04-07] MEDS: MELATONIN 5 MG TABLETS PO SCH ×2 (13:08→21:48)
[2022-04-07] MEDS: THIAMINE HCL 100 MG TABLET (FP) PO SCH ×2 (13:08→21:48)
[2022-04-08] MEDS: NICOTINE 21 MG/24 HOURS TOPICAL PATCH TD SCH (10:17)
[2022-04-08] MEDS: PRENATAL VITAMINS W/ FOLIC ACID TABLET (FP) PO SCH (10:17)
[2022-04-08] MEDS: THIAMINE HCL 100 MG TABLET (FP) PO SCH (21:46)
[2022-04-08] MEDS: MELATONIN 5 MG TABLETS PO SCH (21:46)
[2022-04-09] MEDS: PRENATAL VITAMINS W/ FOLIC ACID TABLET (FP) PO SCH (10:15)
[2022-04-09] MEDS: NICOTINE 21 MG/24 HOURS TOPICAL PATCH TD SCH (10:15)
[2022-04-09] MEDS: ALBUTEROL SO4 HFA INHALER IH PRN (22:32)
[2022-04-09] MEDS: MELATONIN 5 MG TABLETS PO SCH (22:54)
[2022-04-09] MEDS: THIAMINE HCL 100 MG TABLET (FP) PO SCH (22:54)
[2022-04-10] MEDS: PRENATAL VITAMINS W/ FOLIC ACID TABLET (FP) PO SCH (10:13)
[2022-04-10] MEDS: NICOTINE 21 MG/24 HOURS TOPICAL PATCH TD SCH (10:13)
[2022-04-10] MEDS: THIAMINE HCL 100 MG TABLET (FP) PO SCH (21:39)
[2022-04-10] MEDS: MELATONIN 5 MG TABLETS PO SCH (21:39)
[2022-04-11 07:10] VITALS: BP 107/71; PULSE 70; TEMP 97.8
[2022-04-11] MEDS: PRENATAL VITAMINS W/ FOLIC ACID TABLET (FP) PO SCH (09:45)
[2022-04-11] MEDS: NICOTINE 21 MG/24 HOURS TOPICAL PATCH TD SCH (09:45)
== END 2022-04-11 10:05 | disposition home or self-care (01) | DRG 774 ==
LOC: YASAS 01:02 → SUATTDRO 01:02 → Y5N 10:13
PROVIDERS: ADMIT Allergy & Immunology; ATTEND Psychiatry & Neurology Pain Medicine
PROC: HZ2ZZZZ Detoxification Services for Substance Abuse Treatment (ICD-10-PCS; principal; 2022-04-03)
DX: F10.20 Alcohol dependence, uncomplicated (principal); F14.20 Cocaine dependence, uncomplicated; F12.20 Cannabis dependence, uncomplicated; F17.210 Nicotine dependence, cigarettes, uncomplicated; F19.24 Other psychoactive substance dependence with psychoactive substance-induced mood disorder; J45.909 Unspecified asthma, uncomplicated; K21.9 Gastro-esophageal reflux disease without esophagitis; L30.9 Dermatitis, unspecified; Z86.69 Personal history of other diseases of the nervous system and sense organs; Z28.310 Unvaccinated for COVID-19; Z28.9 Immunization not carried out for unspecified reason
CPT/HCPCS: 36415; 80053; 81003; 81025; 85027; 86780; 87811; C9803-CS; U0003; U0005

== ENCOUNTER 2022-10-28 09:47 | Inpatient (IN) | payer OTHER ==
[2022-10-28 10:20] VITALS: BMI 28.2
[2022-10-28] MEDS ORDERED: ACETAMINOPHEN 325 MG TABLET (FP) PO PRN (11:31)
[2022-10-28] MEDS ORDERED: guaiFENesin 600 MG TABLET.ER (FP) PO PRN (11:31)
[2022-10-28] MEDS ORDERED: MAG HYDROX/AL HYDROX/SIMETH 30 ML UNIT-DOSE CUP PO PRN (11:31)
[2022-10-28] MEDS ORDERED: ONDANSETRON *ODT* 4 MG TABLET SL PRN (11:31)
[2022-10-28] MEDS ORDERED: hydrOXYzine PAMOATE 25 MG CAPSULE (FP) PO PRN (11:31)
[2022-10-28] MEDS ORDERED: NALOXONE HCL 0.4 MG/ML VIAL IM PRN (11:31)
[2022-10-28] MEDS ORDERED: LOPERAMIDE HCL 2 MG CAPSULE PO PRN (11:31)
[2022-10-28] MEDS ORDERED: NALOXONE HCL (KLOXXADO) 8 MG SPRAY NS PRN (11:31)
[2022-10-28] MEDS ORDERED: IBUPROFEN 400 MG TABLET (FP) PO PRN (11:31)
[2022-10-28] MEDS ORDERED: POLYETHYLENE GLYCOL (HEALTHYLAX) 3350 17 GM PACKET PO PRN (11:31)
[2022-10-28] MEDS ORDERED: MAGNESIUM HYDROX 2400MG/30ML ORAL SUSPENSION 30 ML CUP PO PRN (11:31)
[2022-10-28] MEDS ORDERED: BISMUTH SUBSALICYLATE 262 MG/15 ML BTL PO PRN (11:31)
[2022-10-28] MEDS ORDERED: NICOTINE 10 MG CARTRIDGE (INHALER) IH PRN (11:31)
[2022-10-28] MEDS ORDERED: BENZOCAINE/MENTHOL (CHLORASEPTIC ) LOZENGE MM PRN (11:31)
[2022-10-28] MEDS ORDERED: DICYCLOMINE HCL 10 MG CAPSULE PO PRN (11:31)
[2022-10-28] MEDS ORDERED: IBUPROFEN 600 MG TABLET (FP) PO PRN (11:31)
[2022-10-28] MEDS ORDERED: BENZONATATE 200 MG CAPSULE PO PRN (11:31)
[2022-10-28] MEDS ORDERED: diazePAM 5 MG TABLET PO PRN (11:35)
[2022-10-28 13:22] LABS: HEMATOCRIT 36.5 % (32.4-45.2); HEMOGLOBIN 12.1 GM/dL (10.7-15.3); MCH 32.1 pg (25.7-33.7); MEAN CELL VOLUME 97.1 fl (80-96); MEAN PLT VOLUME 9.3 fl (7.5-11.1); PLATELET COUNT 240 10^3/uL (134-434); RBC 3.76 M/mm3 (3.60-5.2); RDW 14.4 % (11.6-15.6); WHITE BLOOD COUNT 6.2 K/mm3 (4.0-10.0)
[2022-10-28 14:14] LABS: BLOOD UREA NITROGEN 17.7 mg/dL (7-18); CALCIUM 9.1 mg/dL (8.5-10.1)
[2022-10-28 14:15] LABS: ALBUMIN 3.5 g/dl (3.4-5.0)
[2022-10-28 14:21] LABS: BILIRUBIN,TOTAL 0.3 mg/dL (0.2-1)
[2022-10-28] MEDS: diazePAM 5 MG TABLET PO SCH ×2 (17:28→22:27)
[2022-10-28 18:22] LABS: HIV INTERPRETATION NEGATIVE (NEGATIVE)
[2022-10-28] MEDS: ALBUTEROL SO4 HFA INHALER IH PRN (21:08)
[2022-10-28] MEDS: THIAMINE HCL 100 MG TABLET (FP) PO SCH (22:27)
[2022-10-28] MEDS: MELATONIN 5 MG TABLETS PO SCH (22:27)
[2022-10-28] MEDS: METHOCARBAMOL 500 MG TABLET PO PRN (22:28)
[2022-10-29] MEDS: diazePAM 5 MG TABLET PO SCH ×4 (05:32→22:11)
[2022-10-29] MEDS: ALBUTEROL SO4 HFA INHALER IH PRN (10:19)
[2022-10-29] MEDS: METHOCARBAMOL 500 MG TABLET PO PRN (10:19)
[2022-10-29] MEDS: PRENATAL VITAMINS W/ FOLIC ACID TABLET (FP) PO SCH (10:19)
[2022-10-29] MEDS ORDERED: ALBUTEROL SO4 HFA INHALER IH PRN (14:47)
[2022-10-29] MEDS: MELATONIN 5 MG TABLETS PO SCH (22:11)
[2022-10-29] MEDS: THIAMINE HCL 100 MG TABLET (FP) PO SCH (22:12)
[2022-10-30] MEDS: ALBUTEROL SO4 HFA INHALER IH PRN ×2 (00:48→22:26)
[2022-10-30] MEDS: diazePAM 5 MG TABLET PO SCH ×3 (05:14→22:26)
[2022-10-30] MEDS: PRENATAL VITAMINS W/ FOLIC ACID TABLET (FP) PO SCH (09:57)
[2022-10-30] MEDS: MELATONIN 5 MG TABLETS PO SCH (22:25)
[2022-10-30] MEDS: THIAMINE HCL 100 MG TABLET (FP) PO SCH (22:26)
[2022-10-31] MEDS: diazePAM 5 MG TABLET PO SCH ×2 (05:20→17:39)
[2022-10-31] MEDS: PRENATAL VITAMINS W/ FOLIC ACID TABLET (FP) PO SCH (09:58)
[2022-10-31] MEDS: ALBUTEROL SO4 HFA INHALER IH PRN ×2 (17:39→22:11)
[2022-10-31] MEDS ORDERED: guaiFENesin 600 MG TABLET.ER (FP) PO SCH (22:00)
[2022-10-31] MEDS: MELATONIN 5 MG TABLETS PO SCH (22:11)
[2022-10-31] MEDS: METHOCARBAMOL 500 MG TABLET PO PRN (22:12)
[2022-10-31] MEDS: THIAMINE HCL 100 MG TABLET (FP) PO SCH (22:12)
[2022-11-01] MEDS ORDERED: diazePAM 5 MG TABLET PO ONE (06:00)
[2022-11-01 09:19] VITALS: BP 128/78; PULSE 64; RESP 18; TEMP 96.9
== END 2022-11-01 09:57 | disposition home or self-care (01) | DRG 774 ==
LOC: YASAS 09:47 → Y3N 11:56
PROVIDERS: ADMIT Allergy & Immunology; ATTEND Surgery
PROC: HZ2ZZZZ Detoxification Services for Substance Abuse Treatment (ICD-10-PCS; principal; 2022-10-28)
DX: F10.230 Alcohol dependence with withdrawal, uncomplicated (principal); F14.20 Cocaine dependence, uncomplicated; F12.20 Cannabis dependence, uncomplicated; F17.210 Nicotine dependence, cigarettes, uncomplicated; J45.909 Unspecified asthma, uncomplicated; K21.9 Gastro-esophageal reflux disease without esophagitis; L30.9 Dermatitis, unspecified; Z28.310 Unvaccinated for COVID-19; Z28.9 Immunization not carried out for unspecified reason; Z59.01 Sheltered homelessness
CPT/HCPCS: 36415; 80053; 81025; 82140; 85027; 86780; 87389; 87811; C9803-CS; U0003; U0005